=== PATIENT | male | born 1960 | race Caucasian/White ===

== ENCOUNTER 2016-12-05 10:26 | Inpatient (IN) | payer OTHER ==
--- NOTE | 2016-12-05 11:11 | CPEKG ---
Heart Rate: 89 RR Interval: 674 P-R Interval: 132 QRSD Interval: 74 QT Interval: 340 QTC Interval: 414 P Edgar: 71 QRS Edgar: 24 T Wave Edgar: 8 EKG Severity - ABNORMAL ECG - EKG Impression: SINUS RHYTHM EKG Impression: ABNORMAL T, CONSIDER ISCHEMIA, ANTERIOR LEADS Electronically Signed By: Servando Bender 05-Dec-2016 12:06:47
[2016-12-05 11:41] LABS: ABSOLUTE NRBC COUNT 0.14 10^3/uL (0-0.01); ADD DIFF? YES; ADD MORPH? NO; ADD SCAN? NO; ATYPICAL LYMPHOCYTE FLAG 10 (0-99); FRAGMENT RBC FLAG 0 (0-99); HEMATOCRIT 37.7 % (40.0-51.0); HEMOGLOBIN 13.3 g/dL (13.7-17.5); LEFT SHIFT FLG 50 (0-99); LIPEMIA HEMOLYSIS FLAG 90 (0-99); MEAN CELL HEMOGLOBIN 32.9 pg (27.9-34.1); MEAN CELL HEMOGLOBIN CONCENTR. 35.3 g/dL (32.4-36.7); MEAN CELL VOLUME 93.3 fL (81.5-99.8); MEAN PLATELET VOLUME 10.1 fL (8.7-11.7); NRBC-AUTO% 0.7 % (0.0-0.2); PLATELET CLUMPS FLAG 0 (0-99); PLATELET COUNT 79 10^3/uL (150-400); RED BLOOD CELL COUNT 4.04 10^6/uL (4.40-6.38); RED CELL DISTRIBUTION WIDTH 14.1 % (11.5-15.2)
[2016-12-05 11:46] LABS: INR 1.27 (0.83-1.16); PROTIME(PATIENT) 15.9 SEC (12.0-15.0)
[2016-12-05 11:47] LABS: APTT 30.6 SEC (23.0-38.0)
[2016-12-05 11:49] LABS: ANION GAP 5 mEq/L (8-16); CARBON DIOXIDE 28 mEq/l (22-31); CHLORIDE 100 mEq/L (97-110); CREATININE 1.1 mg/dL (0.7-1.3); GLOMERULAR FILTRATION RATE > 60; GLUCOSE 123 mg/dL (70-100); POTASSIUM 4.8 mEq/L (3.5-5.2); SODIUM 133 mEq/L (134-144)
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
[2016-12-05 12:01] LABS: TROPONIN I 0.022 ng/mL (0-0.034)
[2016-12-05] MEDS ORDERED: VANCOMYCIN HCL/NORMAL SALINE 250 ML IV ONE (12:22)
[2016-12-05] MEDS ORDERED: NS 1,000 ML IV ONE ×2 (12:26)
[2016-12-05 12:37] LABS: GIANT PLATELETS PRESENT; KERATOCYTES 1+; LARGE PLATELETS PRESENT; MACROCYTES 1+; MICROCYTES 1+; PLATELET ESTIMATE DECREASED (ADEQ); POLYCHROMASIA 2+; SCHISTOCYTES 2+
[2016-12-05 13:06] LABS: ALBUMIN 2.9 g/dL (3.5-5.0); ALKALINE PHOSPHATASE 142 IU/L (38-126); ASPARTATE AMINOTRANSFERASE 409 IU/L (17-59); BILIRUBIN,TOTAL 1.2 mg/dL (0.1-1.4); BILIRUBIN-CONJUGATED 0.7 mg/dL (0.0-0.5); BILIRUBIN-UNCONJUGATED 0.5 mg/dL (0.0-1.1); TOTAL PROTEIN 5.8 g/dL (6.3-8.2)
[2016-12-05 13:09] LABS: HEMATOCRIT 37.7 % (40.0-51.0)
[2016-12-05 13:14] LABS: ALANINE AMINOTRANSFERASE 1237 IU/L (21-72)
[2016-12-05 13:25] LABS: C-REACTIVE PROTEIN 80.7 mg/L (<10.0)
[2016-12-05] MEDS ORDERED: ONDANSETRON DISINTEGRATING 4 MG TAB PO PRN (13:26)
[2016-12-05] MEDS ORDERED: ONDANSETRON 4 MG/2 ML VIAL IVP PRN (13:26)
[2016-12-05] MEDS ORDERED: NS 1,000 ML IV SCH (13:30)
[2016-12-05] MEDS ORDERED: CEFEPIME HCL 1 GM in D5W 50 ML IV ONE (13:38)
[2016-12-05 13:46] LABS: PLATELET COUNT 79 10^3/uL (150-400)
[2016-12-05 13:51] LABS: FIBRINOGEN 357 mg/dL (214-456)
--- NOTE | 2016-12-05 14:21 | ECHO ---
[id number] + + [address] : : [place] [address] : : [phone] + + Adult Echocardiographic Report + ------+ :Name: SHILPI SUSU LOPEZ DStudy Date: 12/05/2016 12:56 PM : : Hospital Admission Number: [id number] Locati on: ER: :: 1960 Gender: Male : :Age: 56 yrs Race: WH : :Reason For Study: Eval for endocarditis : + ------+ MMode/2D Measurements \T\ Calculations IVSd: 0.72 cm LVIDd: 4.9 cm FS: 40.0 % Ao root diam: 3.5 cm LVPWd: 0.80 cm LVIDs: 3.0 cm EDV(Teich): 114.4 ml LA dimension: 3.2 cm ESV(Teich): 33.9 ml EF(Teich): 70.4 % Normal Measurement Values: + + :LVIDd (3.5-5.7cm) IVSd (0.6-1.1cm) LVPWd (0.6-1.1cm) Aortic Root (2.0-3.7cm)Left Atrium (1.5-4.0cm): :LV Vol(d) (76-115ml) LV Vol(s) (29-48ml) Ejec Fraction (50-65%)PV Ronka (0.6- 1.2m/s) TV Ronak (0.4-1.0m/s) : :MV E Ronak (0.8-1.0m/s)MV A Ronak (0.3-1.0m/s)LVOT Ronak (0.7-1.2m/s) Asc Ao Ronak ( 0.9-1.8m/s) : + + Doppler Measurements \T\ Calculations Ao V2 max: 125.0 cm/sec Ao max P.3 mmHg Left Ventricle The left ventricle is normal in size. There is normal left ventricular wall thickness. Left ventricular systolic function is normal. Ejection Fraction = 60-65%. No regional wall motion abnormalities noted. Right Ventricle The right ventricle is normal in size and function. Atria The left atrial size is normal. Right atrial size is normal. The interatrial septum is intact with no evidence for an atrial septal defect. Mitral Valve The mitral valve is normal in structure and function. There is no evidence of mitral valve prolapse. There is no mitral valve stenosis. There is trace to mild mitral regurgitation. Tricuspid Valve Normal tricuspid valve. There is trace tricuspid regurgitation. Aortic Valve The aortic valve is trileaflet. The aortic valve opens well. There is no aortic stenosis. There is no aortic insufficiency. Pulmonic Valve The pulmonic valve is normal in structure and function. There is no pulmonic valvular regurgitation. Great Vessels The aortic root is normal size. Pericardium/Pleural Trivial anterior pericardial effusion. Conclusion A complete two-dimensional transthoracic echocardiogram was performed (2D, M-mode, Doppler and color flow Doppler). There is no evidence of a mass or vegetation. This does not rule out endocarditis. Left ventricular systolic function is normal. Ejection Fraction = 60-65%. Normal wall motion. Normal appearing cardiac valves. There is trace to mild mitral regurgitation. There is trace tricuspid regurgitation. Trivial anterior pericardial effusion. No indication of endocarditis. Consider MATTHEW if clinically indicated. Final Reading Physician: David Nunez signed on 12/05/2016 02:20 PM Ordering Physician: Isidro Schmitt MD Performed By: Sherry Napoles RDCS
[2016-12-05] MEDS ORDERED: HEPARIN 10,000 UNIT/10 ML MDV IVP ONE (15:19)
[2016-12-05] MEDS ORDERED: HEPARIN/DEXTROSE 25,000 UNIT/500 ML BAG IV ONE (15:48)
[2016-12-05] MEDS ORDERED: HEPARIN 10,000 UNIT/10 ML MDV ONE (15:49)
[2016-12-05] MEDS ORDERED: IOPAMIDOL (ISOVUE-370) 150 ML BTL IV ONE (15:53)
[2016-12-05] MEDS ORDERED: niCARdipine 20 MG CAP PO SCH (16:00)
[2016-12-05] MEDS ORDERED: TEMAZEPAM 15 MG CAP PO PRN (16:54)
[2016-12-05] MEDS ORDERED: NITROGLYCERIN 2% 1 GM PACKET TP ONE ×2 (17:04→18:30)
[2016-12-05] MEDS: HEPARIN 10,000 UNIT/10 ML MDV IVP PRN ×2 (17:09→21:59)
--- NOTE | 2016-12-05 17:16 | GHP ---
DATE OF ADMISSION: 12/05/2016 CHIEF COMPLAINT: Black toes. HISTORY OF PRESENT ILLNESS: This is a 56-year-old man with no significant chronic medical problems who presents with black toes to the emergency department. He said his toes were normal last night. Woke up, they were they were all black. He also some black spots on his fingers. He says that the y are slightly painful. He has noted pain in the bottom of his feet for the past week or so while h e is ambulating. He still does have some feeling. He is able to move them. Recent history notable for having had an infection on his right wrist about 1 week ago, which was I and D, drain was left in place. In further looking into this, this grew out MSSA. He was treated with clindamycin. This infection has resolved. He has never had anything happen like this before. He does not use any il legal drugs. He very rarely drinks. He does smoke occasionally. He has never used IV drugs. He h as never had hepatitis. He has never had any other autoimmune diseases. He also notes that he has had some neurologic issues, including some gait imbalance, over the past 2 months. He has noted getachew e easy bruising also over the past few months as well. PAST MEDICAL/SURGICAL HISTORY: 1. Sciatica. 2. Infection as above. 3. Submental infection with no culture data, empirically treated with antibiotics. He said he was septic at the time. 4. Depression. 5. Anxiety. MEDICATIONS: Please see medication reconciliation. ALLERGIES: Keflex. SOCIAL HISTORY: He lives with his . He does not drink or smoke. FAMILY HISTORY: No autoimmune diseases. REVIEW OF SYSTEMS: 10-point review of systems is conducted and is negative except per HPI. PHYSICAL EXAM: VITAL SIGNS: Blood pressure is 136/95, heart rate 83, respiration rate 20, saturati ng 96% on room air. Temperature is 37.1. GENERAL: The patient is a very pleasant man who is comfo rtable, no acute distress. HEENT: Shows his nose to have some mild erythema. CARDIOVASCULAR: Show s regular rate and rhythm. No murmurs, rubs, or gallops. PULMONARY: Lungs clear to auscultation b ilaterally. ABDOMEN: Soft, nontender, nondistended. SKIN: Shows him to have small amounts of chandu prem reticularis, both of the arms as well as the heels. : Shows no Cesar. NEUROLOGIC: Shows hi m to be alert and oriented x3. Cranial nerves are intact. He has a nonfocal neurologic exam. PSYC HIATRIC: Shows normal mood and affect. EXTREMITIES: Shows his left hand to have some black, ische rickie-looking blisters in the middle part of his ring finger. He also has some smaller, potentially p etechial lesions, on the tips of his fingers. His toes are black. They do have some sensation. The y are not tender to palpation. He has livedo reticularis on the heels. LABORATORY DATA: White count is 19,000, platelets are 79, INR is 1.27 D-dimer is greater than 20. Lactate is normal. LFTs show an ALT of 1200 and an AST of 400. Bilirubin is normal. BNP is 2140. CRP is 80. Tylenol is negative. RF is negative. Hepatitis and HIV are pending. DATA: 1. I discussed this with many physicians, including Dr. Sarmiento, Dr. Bowles, Dr. Gomez, Dr. Coleman, Elmer Fernandez and Dr. Delgado. Will admit and watch closely. 2. Echocardiogram shows no left ventricular thrombus, no vegetations, normal ejection fraction. 3. Testicular ultrasound shows possible leukemia or lymphoma. 4. CT scan of his head shows nothing acute. 5. ECG shows sinus tachycardia. He has T-wave inversions in leads V2 and V3. 6. Chest x-ray, which I personally viewed and interpreted, shows nothing acute. IMPRESSION AND PLAN: This is a 56-year-old man who presented with black toes. 1. Black toes as well as digits: Concerning for ischemia, though does not have all the physical fi ndings to go along with this. Have considered embolic sources, endocarditis, vasculitis, other prim sal dermatologic disorders, autoimmune disorders. Discussed this with multiple physicians. Will at tempt to obtain a punch biopsy of a skin lesion as well as temporal artery biopsy. Dr. Sarmiento will do this. We will get CT scan of his chest, abdomen and pelvis. Will also get CT angiogram with valeriano gutierrez at the same time. Dr. Fernandez will consider doing a formal angiogram tomorrow based on the finding s. I think he deserves empiric treatment with a vasodilator, heparin in case this is thromboembolic causing ischemia, steroids for possible vasculitis. Discussed the risks of heparin with him includ ing his mild thrombocytopenia. Further treatment based on clinical course and diagnostic findings. 2. Marked leukocytosis: Blood cultures are pending. 3. Significantly elevated D-dimer: Suspect due to small-vessel thrombi. I do not think this repre sents pulmonary embolus. 4. Markedly elevated LFTs: I have ordered a liver ultrasound with Dopplers to look for possible Bu dd-Chiari or other ischemic issues. 5. I have ordered multiple rheumatologic serologies. These include an DAVID, RF (negative), cryoglob ulins, complements, ANCA. I have ordered hepatitis panel. HIV is pending. 6. Will empirically give him antibiotics in case this does end up representing an occult infection. These will be guided by Dr. Bowles. LOPEZ: I spent a total of 120 minutes of critical care time on these potentially limb threatening processes. /[id number]
[2016-12-05] MEDS ORDERED: niCARdipine/NACL 200 ML IV SCH (17:30)
[2016-12-05] MEDS: clonazePAM 1 MG TAB PO SCH ×2 (18:25→20:23)
[2016-12-05] MEDS: methylPREDNISolone SOD SUCC 125 MG/2 ML VIAL IVP SCH ×2 (18:27→23:51)
[2016-12-05] MEDS: oxyCODONE IR 5 MG TAB PO PRN ×2 (18:30→22:59)
--- NOTE | 2016-12-05 18:36 | GHP ---
DATE OF ADMISSION: 12/05/2016 HISTORY OF PRESENT ILLNESS: This 56-year-old gentleman has a history of some issue going on with his right wrist. He thinks it started about 2-3 weeks ago. He describes a couple of pimple-like lesions and was seen in Occupational [facility] and was placed on Bactrim. Apparently, things progressed and he saw a hand surgeon who did an I and D and left a drain in place. Then, he was treated with clindamycin. The actual area in question appeared to get better, however, recently over the last 24 hours his toes have become black. He has had increasing pain in his testicles. He has had some vertigo. He has had some low-grade fever and some chilling. Came to the emergency room and because of a markedly abnormal physical exam he was admitted. Prior to this he had felt well. He have a history of some type of infection which he describes as sepsis originating in the head and neck region about 2 years ago. PAST MEDICAL HISTORY: Significant for sciatica, the infection about 2 years ago , depression and anxiety. ALLERGIES: Keflex. 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 He does not smoke and does not drink. FAMILY HISTORY: Unremarkable. REVIEW OF SYSTEMS: Negative for 10 points except as discussed above. PHYSICAL EXAM: GENERAL: He is a talkative, alert male. VITAL SIGNS: Blood pressure is 136/95, heart rate 83, respiratory rate 20, sat is 96%. He is afebrile. HEENT: Pharynx is unremarkable. There are some petechial lesions over his nose. CARDIAC: Regular rate and rhythm. LUNGS: Clear to auscultation and percussion. ABDOMEN: Soft, slightly obese, nontender without organomegaly. NEUROLOGIC: He is alert and oriented. EXTREMITIES: Particularly dramatic in terms of his toes, all of which are black. They are a bit cool. They have some sensation. Dorsalis pedis pulses are quite brisk. He has some erythematous lesions over his dorsum of his feet and heels. He has an ugly looking sore involving the radial aspect on the dorsum of his right hand. There are petechial lesions noted on the tips of his fingers on the right hand, and there are also a few black eschar looking issues on the left hand. : His testicles are somewhat enlarged and tender to palpation. LABORATORY AND IMAGING DATA: Today shows a white count of 19,000, hemoglobin of 13, hematocrit of 37, platelets are 79,000. Differential shows 84% neutrophils, 2% bands, 12% lymphocytes, 1% monocytes, 1% eosinophils. Platelets were noted to be large, a few keratocytes and schistocytes are noted. There are also a few nucleated RBCs. Sodium is 133, glucose is 123, AST 409, ALT 1237, alk phos is 142. BNP is elevated at 2140. C-reactive protein quite elevated at 80.7, albumin is 2.9. INR is 1.27. D-dimer is greater than 20. Fibrinogen is 357. Rheumatoid factor is negative. Hepatitis serology is pending. Acetaminophen level is low. An ultrasound of his right upper quadrant is really unremarkable. However, an ultrasound of his testicles shows heterogeneous echogenicity in both testicles diffusely. The radiologist mentions a differential of lymphoma or leukemia. CT angiogram of the chest shows atherosclerotic changes but no other issues. IMPRESSION: Patient presenting with an initial issue with his right hand, now with systemic symptoms consistent with microvascular disease, either embolic or vasculitic, with significant involvement of his toes, to a lesser extent his fingers, and I suspect the same process is probably involving his testes. There is a history of methicillin-resistant Staphylococcus aureus, and I think an infectious etiology is definitely a possibility. I should note that an echocardiogram did not show any evidence of valvular vegetations. He has number of abnormalities in his CBC including a significant leukocytosis and thrombocytopenia. I suspect these are probably reactive rather than a primary bone marrow issue, but I think we should keep this issue in mind. He also has markedly elevated liver function tests. The cause is unclear although I wonder if the same microvascular process might be occurring in his liver. He has a number of serologies pending including hepatitis serology, DAVID screen, and p- ANCA testing for vasculitis as well as an HIV. Disseminated intravascular coagulation is a possibility, but his fibrinogen at least for now is normal. Other possibilities such as hemolytic uremic syndrome or thrombotic thrombocytopenic purpura are at least a consideration. I agree with current plans to anticoagulate with heparin and to place on vancomycin. Vasodilators may be of some benefit. I agree with plans for biopsy of one of the ischemic-appearing lesions. Certainly if microorganisms were found that would be quite helpful. In addition to the above labs, I am adding a serum ferritin, FISH for BCR-ABL, serum free light chain analysis, serum protein electrophoresis, and quantitative immunoglobulins. We will also perform a JAK2 mutation and check for a leukemia/lymphoma panel as well as checking an LDH. Our service will follow with you. /[id number]/MODL MTDD
[2016-12-05 18:41] LABS: COLOR PALE YELLOW; LEUKOCYTE ESTERASE,URINE NEGATIVE (NEGATIVE); NITRITE,URINE NEGATIVE (NEGATIVE)
[2016-12-05] MEDS: VANCOMYCIN HCL/NORMAL SALINE 250 ML IV SCH (19:47)
[2016-12-05] MEDS: CEFEPIME HCL 1 GM in D5W 50 ML IV SCH (19:47)
--- NOTE | 2016-12-05 19:52 | GCON ---
This is a 56-year-old gentleman who has 1 week of prodromal syndrome before coming in. He had infection of the right hand on the posterior aspect which was drained by Dr. Nicole, Plastic Surgery at [facility]. He was subsequently discharged with home care and clindamycin. The patient continued to have symptoms of malaise, anorexia, dizziness with loss of equilibrium and spots on both hands which have worsened to ischemic type changes over the last 48 hours. The patient also this morning discovered bilateral feet, toes with purple discoloration and extreme discomfort and pain on standing. He denies any fevers or chills. He has not had any other sicknesses that he is aware of over the last few months. He does have a cat which has scratched him the last 2 weeks, bitten him in the last month, but as far as he knows the cat has been present with him for 5 years, does not have any known illnesses. PAST MEDICAL HISTORY: Significant for sciatica, previous infection of his right hand, hospitalized in [facility] 2 years ago. He also has a history of hypertension, depression, and dyspepsia. MEDICATIONS: Listed in the chart; include Paxil, Klonopin, ranitidine, Nexium, and trazodone. He is also taking clindamycin as of this past week. ALLERGIES: Include cephalexin. FAMILY HISTORY: He has no family history of vasculitis or heart disease. REVIEW OF SYSTEMS: Significant for an attempted weight loss of last 2 months of approximately 20 pounds. All others systems were negative except for what was mentioned above. They were reviewed. PHYSICAL EXAMINATION: VITAL SIGNS: The patient has a temperature of 37.1, heart rate of 85, blood pressure of 137/87 with a saturation 96% on room air, respiratory rate of 17. GENERAL: He is alert to person, place, and time, although he tends to have some circuitous thoughts. His manner is otherwise normal. HEENT: His sclerae anicteric. His oropharynx is moist without lesions. He has no JVD, thyromegaly, or supraclavicular adenopathy. HEART: Regular heart tones. S1, S2. LUNGS: Clear. ABDOMEN: Soft, nontender. No hepatosplenomegaly. No scars. EXTREMITIES: He has 2+ femoral, radial, dorsalis pedis, and posterior tibial pulses. His skin is noted for mottling in both ankles down to his toes. Bilateral upper extremities: His distal fingers are discolored slightly purple, and on his hands dorsum of the right has an open wound, which is cleansed. No signs of active infection. No cellulitis. The left hand, on the volar surface, he has an ischemic wound on the 5th digit as well as closer to the metacarpal joint. The rest of the fingers on the palmar surface have slight discoloration but are perfused. His toes bilaterally are purple discoloration to the metatarsals without good capillary refill. He has a blister on the left foot which is punctured and the fluid sent for culture. He has no CVA tenderness. Range of motion, upper extremities , is normal. 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 RECOMMENDATIONS: At this point, steroid use for vasculitis as well as anticoagulation. I do not believe tPA is necessary. Agree with looking for source of infection. Could be hepatitis B, but Infectious Disease is also involved. Likely a CT scan of the chest, abdomen, and pelvis as well as an angiogram to look for any signs of occlusion or spasm. Risks and benefits of conservative care have been outlined to the patient and his . Serial followup will be done over the course of this hospitalization. /[id number]/MODL MTDD
[2016-12-05] MEDS: HYDROmorphONE/DILAUDID 1 MG/ML SYR IVP PRN ×2 (19:58→22:59)
[2016-12-05] MEDS: traZODone 50 MG TAB PO SCH (20:23)
[2016-12-05] MEDS: GABAPENTIN 300 MG CAP PO SCH (20:23)
[2016-12-05] MEDS: METHOCARBAMOL 500 MG TAB PO SCH (20:23)
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
[2016-12-05] MEDS ORDERED: FAMOTIDINE 20 MG TAB PO PRN (21:00)
[2016-12-05] MEDS: niCARdipine 20 MG CAP PO SCH (21:05)
[2016-12-05] MEDS ORDERED: LIDO/EPI 1% **Not for Epidural 20 ML MDV ONE (21:30)
[2016-12-05] MEDS ORDERED: SKIN ADHESIVE (DERMABOND) 1 EACH TP ONE (21:35)
[2016-12-05 21:46] LABS: INR 1.28 (0.83-1.16)
[2016-12-05 21:48] LABS: APTT 84.1 SEC (23.0-38.0)
[2016-12-05 22:07] LABS: LACTATE DEHYDROGENASE 2914 IU/L (313-618)
[2016-12-05 22:36] LABS: CK-MB INTERPRETATION NEGATIVE (NEGATIVE)
[2016-12-05 22:41] LABS: CREATINE KINASE-MB FRACTION 7.59 ng/mL (0-3.19)
--- NOTE | 2016-12-05 23:14 | POSTOPPROG ---
Post Op Note Date of Operation: 12/05/16 Surgeon: Peter Sarmiento Applications Consultant: none Anesthesiologist: none Anesthesia: Local (Specify) Pre-op Diagnosis: vasculitis Post-op Diagnosis: same Procedure: left temporal artery bx, right thigh skin bx Findings: small artery Inf/Abcess present in the surg proc area at time of surgery?: No Specimen(s): left temporal artery right extremity skin bx
--- NOTE | 2016-12-05 23:43 | GOP ---
DATE OF OPERATION: SURGEON: Peter Sarmiento MD ANESTHESIA: Local anesthetic, 1% lidocaine with epinephrine. PREOPERATIVE DIAGNOSIS: Vasculitis. POSTOPERATIVE DIAGNOSIS: Vasculitis. PROCEDURE PERFORMED: 1. Left temporal artery biopsy. 2. Right thigh biopsy. FINDINGS: INDICATIONS: This is a 56-year-old gentleman who presents with vasculitis. Temporal artery biopsy and skin biopsy have been asked for as part of the workup. DESCRIPTION OF PROCEDURE: Patient was identified by 2 independent variables. His skin was prepped with chlorhexidine, draped sterilely on his temporal artery. Local anesthetic was infused in skin a nd subcutaneous tissues, and a linear incision was made above the artery. This was deepened with sh jesus dissection. The artery was identified. Proximal and distal control were used with hemostats an d the artery was taken out between the clamps. It was passed off as specimen. The artery was tied off with 3-0 Vicryl proximally and distally and the wound was closed in layers using 4-0 Monocryl. Skin biopsies done on the right thigh with similar preparation with chlorhexidine, local anesthetic 1% lidocaine with epinephrine. Elliptical incision was made around the lesion, and this sent off fo r pathology in formalin. The skin was closed using Monocryl. Dermabond was applied to both areas. Patient tolerated it well. Will follow up with him over the course of the next 24 hours. COMPLICATIONS: There were no complications. /[id number]/MODL
[2016-12-06] MEDS: CEFEPIME HCL 1 GM in D5W 50 ML IV SCH ×3 (03:11→19:32)
[2016-12-06] MEDS: VANCOMYCIN HCL/NORMAL SALINE 250 ML IV SCH ×2 (03:57→12:44)
[2016-12-06 04:47] LABS: ABSOLUTE NRBC COUNT 0.07 10^3/uL (0-0.01); ADD DIFF? YES; ADD MORPH? NO; ADD SCAN? NO; ATYPICAL LYMPHOCYTE FLAG 10 (0-99); FRAGMENT RBC FLAG 20 (0-99); HEMATOCRIT 35.1 % (40.0-51.0); LEFT SHIFT FLG 30 (0-99); LIPEMIA HEMOLYSIS FLAG 90 (0-99); MEAN CELL HEMOGLOBIN CONCENTR. 34.2 g/dL (32.4-36.7); MEAN CELL VOLUME 93.6 fL (81.5-99.8); MEAN PLATELET VOLUME 11.4 fL (8.7-11.7); NRBC-AUTO% 0.4 % (0.0-0.2); PLATELET CLUMPS FLAG 0 (0-99); PLATELET COUNT 108 10^3/uL (150-400); RED BLOOD CELL COUNT 3.75 10^6/uL (4.40-6.38); RED CELL DISTRIBUTION WIDTH 14.6 % (11.5-15.2)
[2016-12-06 04:51] LABS: INR 1.27 (0.83-1.16); PROTIME(PATIENT) 15.9 SEC (12.0-15.0)
[2016-12-06 04:52] LABS: FIBRINOGEN 410 mg/dL (214-456)
[2016-12-06 05:24] LABS: ALANINE AMINOTRANSFERASE 873 IU/L (21-72); ALBUMIN 2.6 g/dL (3.5-5.0); ALKALINE PHOSPHATASE 99 IU/L (38-126); ANION GAP 4 mEq/L (8-16); ASPARTATE AMINOTRANSFERASE 192 IU/L (17-59); BILIRUBIN,TOTAL 0.8 mg/dL (0.1-1.4); CALCIUM 7.3 mg/dL (8.5-10.4); CARBON DIOXIDE 25 mEq/l (22-31); CHLORIDE 108 mEq/L (97-110); CREATININE 0.9 mg/dL (0.7-1.3); GLOMERULAR FILTRATION RATE > 60; GLUCOSE 173 mg/dL (70-100); POTASSIUM 5.1 mEq/L (3.5-5.2); SODIUM 137 mEq/L (134-144); TOTAL PROTEIN 5.5 g/dL (6.3-8.2)
[2016-12-06 05:27] LABS: KERATOCYTES 1+; MACROCYTES 1+; MICROCYTES 1+; PLATELET ESTIMATE DECREASED (ADEQ); POLYCHROMASIA 1+
[2016-12-06 05:28] LABS: PLATELET COUNT 108 10^3/uL (150-400)
[2016-12-06] MEDS: methylPREDNISolone SOD SUCC 125 MG/2 ML VIAL IVP SCH ×4 (06:18→23:41)
[2016-12-06 06:28] LABS: APTT 154.3 SEC (23.0-38.0)
[2016-12-06] MEDS: HEPARIN/DEXTROSE 500 ML IV SCH (07:47)
[2016-12-06] MEDS: HYDROmorphONE/DILAUDID 1 MG/ML SYR IVP PRN ×3 (08:36→19:35)
[2016-12-06] MEDS: PANTOPRAZOLE SODIUM 40 MG TAB PO SCH (08:58)
[2016-12-06] MEDS: niCARdipine 20 MG CAP PO SCH ×3 (08:58→22:25)
[2016-12-06] MEDS: PARoxetine HCL 20 MG TAB PO SCH (08:58)
--- NOTE | 2016-12-06 10:35 | SOAPPROG ---
SOAP Progress Note Assessment/Plan: Assessment: 1. Ischemia of digits - unclear etiology 2. ?recent R hand infection. 3. Microangiopathy (low plts, schistocytes, high LDH) Does not appear to be TTP - plts improving, renal function normal, no fever or altered mental status. Suspect vasculitis or possibly an infectious complication. Plan: - continue heparin gtt for now - will follow hemolysis labs and platelets - await skin biopsy results - should have a rheum consult 40 min spent w/ pt and in coordination of care (d/w kleber silva, padmini, ) 12/06/16 10:33 Subjective: feeling better today. less testicular pain. Objective: exam: NAD cyanosis of toes > fingers- stable no new lesions evident Lungs CTAB CV RRR no mGR Abd: +BS NT ND Ext: 1+ edema smear (personally reviewed): 4-5 schistocytes/HPF, some polychromasia, no immature WBCs seen Vital Signs Temp Pulse Resp BP Pulse Ox 37.7 C 76 15 117/67 96 12/05/16 21:00 12/06/16 06:00 12/06/16 06:00 12/06/16 06:00 12/06/16 06:00 Microbiology 12/05/16 13:14 Gram Stain - Final Foot - Swab Laboratory Results 12/06/16 04:25 12/06/16 04:25 12/05/16 12/06/16 12/07/16 05:59 05:59 05:59 Intake Total 3800 Output Total 1850 Balance 1950 PT 15.9 SEC (12.0-15.0) H 12/06/16 04:25 INR 1.27 (0.83-1.16) H 12/06/16 04:25 ICD10 Worksheet Patient Problems: Problems Problem Status Onset Ischemic toe Acute Skin lesion Acute
--- NOTE | 2016-12-06 11:05 | HOSPPROG ---
Hospitalist Progress Note Assessment/Plan: # ischemic digits/toes?: very atypical presentation; considerations for vasculitis, embolic, other etiologies - formal angiogram today - continue heparin drip - continue steroids - continue vasodilators - will discuss with Infectious Disease continuing antibiotics - multiple serologies pending - biopsies pending - Dr. Mcpherson will consult # mild thrombocytopenia - seems more likely consumptive/reactive, consider TTP # elevated LFTs - likely the same underlying process, follow # abnormal testicular imaging - also likely the same underlying process # depr - paxil ## 35 minutes critical care time Subjective: no acute events overnight Objective: Vital Signs Temp Pulse Resp BP Pulse Ox 37.7 C 76 15 117/67 96 12/05/16 21:00 12/06/16 06:00 12/06/16 06:00 12/06/16 06:00 12/06/16 06:00 Microbiology 12/05/16 13:14 Gram Stain - Final Foot - Swab Laboratory Results 12/06/16 04:25 12/06/16 04:25 12/05/16 12/06/16 12/07/16 05:59 05:59 05:59 Intake Total 3800 Output Total 1850 Balance 1950 PT 15.9 SEC (12.0-15.0) H 12/06/16 04:25 INR 1.27 (0.83-1.16) H 12/06/16 04:25 Vitals reviewed Pleasant, no acute distress Regular rate and rhythm, no murmurs rubs or gallops No respiratory distress, lungs clear to auscultation bilaterally, no wheezes or rales Abdomen soft nontender, nondistended, no hepatosplenomegaly Toes slightly pink early, less does gruber today than yesterday ICD10 Worksheet Patient Problems: Problems Problem Status Onset Skin lesion Acute Ischemic toe Acute
[2016-12-06] MEDS ORDERED: PNEUMOCOCCAL 0.5ML VACCINE VIAL IM ONE (12:47)
--- NOTE | 2016-12-06 13:29 | WOCRNPDOC ---
SU[facility]ANNE Advanced Assessment Note - Skin Integrity Problem, Advanced Assess Bilateral Toe Dressing Type: Open to Air Linda Wound Tissue: Painful/Tender Pulse Location & Description: 2+ bounding bilateral DP Extremity Temperature: Warm Skin Integrity Problem Comment: Bilateral toes purple/ischemic with no open areas at this time. Left Great toe purple/ischemic to 10 cm from phalange to metatarsal head. Erythema had been previously marked and extended proximally from all 10 toes. Erythema appears to have receeded from previous marked areas. Left heel with livedo reticularis. Left Anterior Fifth Finger Dressing Type: Open to Air Wound Bed Color: Black Site Measurement - Head-to-Toe Length X Width X Depth (cm): 1.3x1.2x0 Skin Integrity Problem Comment: Area of black ischemia/nerosis between distal and middle phalange. No drainage. Left Fingers 2,3,4th Skin Integrity Problem Comment: Intact with livedo reticularis over distal phalanx. Area had been previously marked. Erythema appears to have receded from margins. Right Posterior Lateral Hand Dressing Type: Open to Air Exudate Amount: Minimal Exudate Color: Clear, Yellow Integumentary Issue Intervention: Dressing Applied, Dressing Initialed & Dated Linda Wound Tissue: Erythema, Hot, Swollen, Painful/Tender Linda Wound Swelling: Severe Wound Bed Color: Black, Brown, Red, Yellow, White Wound Bed Constitution: Smooth Tissue (20%), Mixed Loose & Adhered Slough/ Eschar (80%) Site Odor: None Site Measurement - Head-to-Toe Length X Width X Depth (cm): 4.8x2.8x0.4 Extremity Temperature: Warm Skin Integrity Problem Comment: Large necrotic ulceration over second metacarpophalangeal joint. Soaked for 20 min in Vashe wound cleanser. Area of necrosis that covers center of the wound began to lift off wound bed after soaking. This may be where a drain was previously placed. It is noted Dr. Rakan Toro (hand surgeon) will follow this wound as well. The necrosis will not be mechanically/sharp debrided by wound care, however mild autolytic debridment will be attempted. The wound was covered with Puracyn antimicrobial wound gel, and then AMD antimicrobial foam which was then wrapped in place. Dr. Parmar in room. Wound care will round again tormorrow to see wound. Right Posterior Medial Hand Dressing Type: Open to Air Exudate Amount: None Integumentary Issue Intervention: Dressing Applied, Dressing Initialed & Dated Linda Wound Tissue: Erythema Wound Bed Constitution: Granulation Tissue, Scab, Dried Exudate Site Measurement - Head-to-Toe Length X Width X Depth (cm): 1x1x0.2 Skin Integrity Problem Comment: Partial thickness wound over 4th posterior Metacarpophalangeal joint. Soaked for 20 min in Vashe wound cleanser. Most of wound was covered with dried blood, which was covered with Puracyn antimicrobial wound gel, and then AMD antimicrobial foam which was then wrapped in place. Dr. Parmar in room. Wound care will round again tormorrow to see wound.
[2016-12-06] MEDS ORDERED: NALOXONE HCL 0.4 MG/ML INJ ONE (14:01)
[2016-12-06] MEDS ORDERED: FLUMAZENIL 0.5 MG/5 ML MDV IVP ONE (14:01)
[2016-12-06] MEDS ORDERED: fentaNYL 100 MCG/2 ML INJ ONE (14:01)
[2016-12-06] MEDS ORDERED: MIDAZOLAM 2 MG/2 ML VIAL ONE (14:02)
--- NOTE | 2016-12-06 14:10 | PCMIDPN ---
Assessment/Plan: Assessment/Plan: * Digital ischemia with ulceration over right dorsum of hand: Suspect most likely noninfectious etiology given both feet with all toes and nose affected which seems unusual for emboli with vasculitis possible underlying etiology. Will continue empiric vancomycin and cefepime pending blood cultures today. If blood cultures negative tomorrow, favor stopping antibiotic therapy. Await angiogram which is scheduled for later today and rheum consult. * Right hand ulceration: Treated as infectious process prior to hospitalization - no cellulitis on exam but does have desquamation below ulceration which could be seen with resolving infection. 12/06/16 14:07 12/06/16 14:14 Subjective: Patient with pain over right hand ulceration with dressing change. s/p temporal artery and skin biopsy. Objective: Vital Signs Temp Pulse Resp BP Pulse Ox 37.7 C 76 13 124/84 H 92 12/05/16 21:00 12/06/16 13:00 12/06/16 13:00 12/06/16 13:00 12/06/16 13:00 Microbiology 12/05/16 13:14 Gram Stain - Final Foot - Swab Laboratory Results 12/06/16 04:25 12/06/16 04:25 12/05/16 12/06/16 12/07/16 05:59 05:59 05:59 Intake Total 3800 Output Total 1850 Balance 1950 ESR 9 MM/HR (0-20) 12/05/16 12:00 C-Reactive Protein 80.7 mg/L (<10.0) H 12/05/16 12:00 Vancomycin #2 Cefepime #2 Blood cultures no growth to date ANCA pending DAVID/RF negative - Physical Exam General Appearance: alert, no apparent distress EENT: other (punctate hemorrhagic appearing macules over nose), No thrush, No conjunctival petechiae Respiratory: lungs clear, No respiratory distress Cardiac/Chest: regular rate, rhythm, No systolic murmur Extremities: inflammation (right hand with ulceration over dorsum at base of index finger with some eschar present; no purulence; cool temperature; left hand with scattered ischemic changes distally; both feet with symmetric ischemic changes) Abdomen: non-tender, No distended ICD10 Worksheet Patient Problems: Problems Problem Status Onset Ischemic toe Acute Skin lesion Acute
[2016-12-06] MEDS ORDERED: IOPAMIDOL (ISOVUE-300) 100 ML BTL IV ONE ×2 (14:50→15:38)
[2016-12-06] MEDS ORDERED: NITROGLYCERIN/D5W 50 MG/250 ML BOTTLE IV ONE (14:50)
[2016-12-06 15:31] LABS: HEMATOCRIT 36.8 % (40.0-51.0)
--- NOTE | 2016-12-06 16:22 | SOAPPROG ---
SOAP Progress Note Assessment/Plan: Assessment/Plan: Blue toes/fingers with testicular pain and no large/moderate vessel disease favor vasculitis Better today with steroids/vasodilation systemically and locally and systemic anticoagulation Continue current mgmt Angio today pending Temporal artery, skin biopsies pending Continue to follow labs/tests 12/06/16 16:16 Objective: Vital Signs Temp Pulse Resp BP Pulse Ox 37.7 C 76 13 124/84 H 92 12/05/16 21:00 12/06/16 13:00 12/06/16 13:00 12/06/16 13:00 12/06/16 13:00 Microbiology 12/05/16 13:14 Gram Stain - Final Foot - Swab Laboratory Results 12/06/16 15:10 12/06/16 04:25 12/05/16 12/06/16 12/07/16 05:59 05:59 05:59 Intake Total 3800 Output Total 1850 650 Balance 1950 -650 PT 15.9 SEC (12.0-15.0) H 12/06/16 04:25 INR 1.27 (0.83-1.16) H 12/06/16 04:25 ICD10 Worksheet Patient Problems: Problems Problem Status Onset Ischemic toe Acute Skin lesion Acute
[2016-12-06] MEDS: oxyCODONE IR 5 MG TAB PO PRN ×2 (16:29→21:12)
[2016-12-06] MEDS: HEPARIN 10,000 UNIT/10 ML MDV IVP PRN (16:54)
[2016-12-06] MEDS: PAPAVERINE HCL 60 MG/2 ML SDV IV SCH ×3 (17:19→23:39)
--- NOTE | 2016-12-06 17:55 | GCON ---
PULMONARY/CRITICAL CARE CONSULTATION DATE OF CONSULTATION: 12/06/2016 REFERRING PHYSICIAN: Yemi Culp MD REASON FOR REFERRAL: Evaluation and management of digital ischemia. HISTORY: The patient is a 56-year-old gentleman who was in his usual state of good health when he r eports that about a week ago he had an infection on his right wrist which was I'd and D'd and grew o ut MSSA, treated with clindamycin. That infection seemed to improve. About a week ago, he started to develop some pain in the bottoms of his feet while walking. Yesterday he woke up with black toes and some redness of his fingertips that was painful. He was admitted to the hospital where he has continued to report pain in his fingers more so than his toes. He has not had any prior history of Raynaud or other problems with circulation. He denies any illicit drug use. He has not had fevers. PAST MEDICAL HISTORY: 1. History of sciatica. 2. Depression with anxiety. MEDICATIONS: Paxil, clonazepam 2 mg in the day and 3 mg at night, gabapentin, omeprazole, trazodone , ranitidine, clindamycin, Robaxin, diphenhydramine. ALLERGIES: Keflex. SOCIAL HISTORY: The patient lives with his . He drinks rarely and smokes occasionally. FAMILY HISTORY: Unremarkable. REVIEW OF SYSTEMS: A 10-point review of systems adds nothing to the History of Present Illness and Past Medical History. PHYSICAL EXAMINATION: GENERAL: The patient is awake, alert, in no acute distress. VITAL SIGNS: B lood pressure is 121/60 with a pulse of 74. He is afebrile. Oxygen saturations are 97% on room air . HEENT: Normocephalic and atraumatic. He has some nonblanching erythema in his nose. NECK: No adenopathy. Trachea is midline. CHEST: Clear to auscultation. CARDIAC: Regular rate and rhythm without murmur. ABDOMEN: Soft, nontender. Bowel sounds are present. EXTREMITIES: No clubbing or cyanosis. He has good peripheral pulses. All of his toes have ischemic or necrotic changes with b lackness of his great toes and nonblanching petechiae/ischemic changes in all of his toes. He has i schemic changes of his fingertips without any definite necrosis except for an area along his anterio r left 5th digit. LABORATORY: White blood count is 19.3 with a hemoglobin of 12.0, platelet count is 108. Chemistry group is remarkable for a blood glucose of 173. AST is 182 with an ALT of 873. These are both down from admission. CK is 3060. BNP is 2140. Sedimentation rate is 9. INR was 1.3 at admission. La ctic acid is 1.5. An DAVID is normal at 0.21. CT angio done yesterday showed no significant atherosc lerotic disease. An angiogram today shows patent vessels down to the very distal digital vessels wh ere, in both feet and his hand, the patient has some abrupt tapering and occlusion of small distal v essels most consistent with spasm and possible in situ thrombosis. Images reviewed with Dr. Fernandez. ASSESSMENT: Digital ischemia. The most likely cause appears to be peripheral vasospasm with in sit u thrombosis. At this point, initial lab tests do not suggest a significant coagulopathy or hyperco agulable state. Vasculitis is unlikely given the normal sedimentation rate. The patient has been t reated with heparin and appears to be clinically stabilizing. I discussed the case with Dr. Fernandez and reviewed the angiograms. She feels that vasodilator therapy is indicated and likely to be benefici al. He may also benefit from thrombolysis, probably with systemic therapy, but because the peripher al thrombi that are seen are quite small, it is likely that the patient's intrinsic lytic system may be able to resolve these fairly quickly. RECOMMENDATIONS: 1. Start papaverine 60 mg IV q.3 hours. 2. Await results of further serologic testing as well as testing for leukemia. 3. Monitor for coagulopathy. 4. If the patient clinically deteriorates, consider tPA. /[id number]/MODL
[2016-12-06] MEDS: clonazePAM 1 MG TAB PO SCH ×2 (18:08→18:21)
[2016-12-06] MEDS ORDERED: methylPREDNISolone SOD SUCC 125 MG/2 ML VIAL ONE (18:20)
[2016-12-06 19:55] LABS: HEMOGLOBIN A1C 6.1 % (4.0-6.0)
[2016-12-06] MEDS: GABAPENTIN 300 MG CAP PO SCH (22:25)
--- NOTE | 2016-12-06 22:26 | GCON ---
RHEUMATOLOGY CONSULTATION DATE OF CONSULTATION: 12/06/2016 REFERRING PHYSICIAN: Yemi Culp MD REASON FOR CONSULTATION: Evaluate for rheumatic disease. HISTORY OF PRESENT ILLNESS: The patient is a 56-year-old male with past medical history significant for anxiety, insomnia who presents with black discoloration of multiple toes, in addition to several fingers. He reports that he was in his usual good health until approximately 1 month ago. At that time, he had injury stepping out of a truck. At that point in time, he felt some sciatica-like symptoms down the back leg. This seemed to resolve within about 3-4 days. Several weeks later, he developed some similar symptoms along the right posterior thigh region radiating downward, concerning for sciatica. This was mostly improving until about 1 week prior to admission. One week prior to admission, he developed some discoloration and red areas on the dorsum of his right hand. This ultimately appeared to be infected. He went to see his primary care physician, who placed him on antibiotics. He was given Bactrim. With this, he developed severe abdominal pain and discontinued it. When he spoke to his physician again, he was referred to Orthopedic Surgery for drainage of an infected dorsum of the right hand and wrist. He was also given clindamycin for this infection which was MSSA. Infection subsequently resolved. Two days prior to admission, he noted the development of toes that appeared very black, along with several fingertips. This was associated with some moderate pain in that region. Because of the drastic appearance of these lesions, he went to the emergency room for further evaluation. He was subsequently admitted for further evaluation and treatment. He has never had anything similar to this. He has had no history of thrombotic events. In the proceeding months, he has not had any fevers, chills, weight loss, sweats, visual changes, sores in nose or mouth, chest pain, breathing issues, cough. Only gastrointestinal symptoms were the abdominal pain he developed with initiation of Bactrim. He did continue to have abdominal pain through the week. This was not necessarily worse with or without eating. No associated tingling or numbness. He has no known history of hepatitis, nor has he had any particular high-risk for this condition. With his initial evaluation in the emergency room, CPK was noted to be 3000, LDH was markedly elevated. Liver enzymes were also quite elevated. Kidney function and urinalysis has been normal. He has not had any cardiac or pulmonary symptoms or findings. He had a CT angiogram which did not suggest any proximal thrombotic lesions. PAST MEDICAL HISTORY: Includes anxiety with depression, submental infection improved with antibiotic therapy a couple years ago, recent sciatica symptoms. MEDICATIONS: At home include clonazepam and trazodone. DRUG ALLERGIES: Cephalexin, possibly Bactrim. SOCIAL HISTORY: Lives with his . He does not drink. He does smoke occasionally. No illicit drug use. 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 FAMILY HISTORY: No history of autoimmune disease. REVIEW OF SYSTEMS: Comprehensive review of systems is noted in the history of present illness. PHYSICAL EXAMINATION: VITAL SIGNS: Blood pressure 127/61, heart rate of 74, respiratory rate is 14, O2 saturation 95% on room air. Temperature of 37.7. GENERAL: He appears comfortable lying flat in bed. HEENT: The conjunctivae are clear. Oral lesions are noted. The nose does have multiple erythematous areas without any specific areas of tenderness. NECK: Supple with no lymphadenopathy. No thyromegaly appreciated. CHEST: Clear to auscultation bilaterally. CARDIOVASCULAR: Normal sinus rhythm. No murmurs appreciated. ABDOMEN: Soft, nontender. Normal bowel sounds. No masses appreciated. EXTREMITIES: Trace edema. SKIN: He has black discoloration with superficial necrosis noted worse down the 5th finger of the left hand, but also several other digits distally on the left hand. Both feet show profound black discoloration distal to the metatarsophalangeal joint. There is moderate tenderness with direct palpation of this area. Slightly more proximally, there is more erythema noted without the black discoloration. No open lesions are appreciated. Both feet are equally involved. MUSCULOSKELETAL: No joint swelling or tenderness. NEUROLOGIC: Normal sensation and strength. VASCULAR: Normal pulses appreciated. LYMPH NODES: No lymphadenopathy. LABORATORY DATA: White blood cell count of 19.3, hemoglobin 12.0, platelet count of 108. Significant neutrophilia with 15,000 neutrophils, bandemia with 2.7 bands noted. ESR was 9. Cryofibrinogens are pending. Chemistries showed normal creatinine of 0.9, AST was 873, ALT of 192. Calcium slightly low at 7.3. Total protein of 5.5, albumin of 2.6, CK of 3060. C-reactive protein of 80.7. Protein electrophoresis is pending. Urinalysis showed a few red blood cells. Immunoglobulin levels, cryoglobulin levels are pending. Rheumatoid factor is negative. DAVID is negative. Anticardiolipin antibodies are pending. Antiproteinase 3 and myeloperoxidase antibodies are pending. Complement levels are pending. Hepatitis A, B and C testing are all negative. IMAGING: CT angiogram shows some mild atherosclerotic calcification in the aorta. No evidence of thrombosis or vasculitic changes in the larger vessels. No aneurysms noted. Testicular ultrasound shows some heterogenous echogenicity in both testicles. Chest CT, no significant abnormalities. Head CT, no significant abnormalities. ASSESSMENT: 1. Ischemic digits. His clinical presentation is definitely most concerning for an ischemic process affecting the very distal toes and fingers. There is no evidence for an infectious cause. Consider thrombotic causes and/or vasculitic disorders. In regard to autoimmune vasculitic disorders, evidence does not really suggest thromboangiitis obliterans. The smaller vessel involvement can be seen in disorders such as the ANCA associated vasculitides. Sometimes diseases such as polyarteritis nodosa could present with similar ischemic appearing digits. Of note, he has had some testicular pain in the last week or 2 associated with the onset of these other symptoms. This is not that uncommon with vasculitic disorders. In addition , he has had an elevated CPK which may indicate muscle involvement. He does not have much in regard to systemic symptoms or neurologic findings (mononeuritis multiplex) to give a more definitive diagnosis of a vasculitis. I am uncertain if his intestinal symptoms were directly a side effect of Bactrim or part of this systemic process. I think connective tissue diseases would be very unlikely to present in this manner. Other considerations would be thrombotic conditions such as antiphospholipid antibody syndrome, cryoglobulinemia. I think at this point in time, it is important to await the results of the biopsy results, along with the multiple laboratory studies that have been performed. I would continue treatment for vasculitis for now, even if the angiogram does not give a clear vasculitis appearance. Prednisone 60 mg per day should be sufficient to help reverse the inflammatory process if indeed this is related to a vasculitis. I agree in the interim to using anticoagulation. If he can get any benefit from vasodilation, that may allow for faster healing. 2. Elevated liver function tests. Once again I am uncertain as to the cause of the elevated liver test. There is no obvious infection cause in regard to hepatitis A, B or C. Most likely this is related to the process also affecting the feet. 3. Elevated CPK. CPK was fairly elevated without significant muscle symptoms. This may be contributing some to the elevated liver tests. If indeed he did have a problem such as polyarteritis nodosa, this could also give muscle involvement with elevated CPK. RECOMMENDATIONS: 1. Await results of laboratory testing and biopsy results. 2. We will discuss further with Radiology the results of the arteriogram. 3. Continue corticosteroids for now for possible vasculitis. Prednisone 60 mg per day or equivalent should be sufficient. 4. Repeat laboratory tests to observe for resolution of the elevated liver tests and muscle enzymes. 5. Continue anticoagulation in case this is related to multiple thrombotic events. /[id number]/MODL MTDD
[2016-12-06] MEDS: METHOCARBAMOL 500 MG TAB PO SCH (22:27)
[2016-12-06] MEDS: traZODone 50 MG TAB PO SCH (22:27)
[2016-12-07] MEDS: VANCOMYCIN HCL/NORMAL SALINE 250 ML IV SCH ×3 (00:20→17:03)
[2016-12-07] MEDS: HEPARIN/DEXTROSE 500 ML IV SCH ×2 (00:34→15:53)
[2016-12-07] MEDS: clonazePAM 1 MG TAB PO SCH ×3 (00:35→20:04)
[2016-12-07] MEDS: PAPAVERINE HCL 60 MG/2 ML SDV IV SCH ×8 (02:21→23:06)
[2016-12-07] MEDS: CEFEPIME HCL 1 GM in D5W 50 ML IV SCH ×3 (02:24→19:43)
[2016-12-07 04:26] LABS: ABSOLUTE NRBC COUNT 0.05 10^3/uL (0-0.01); ADD DIFF? YES; ADD MORPH? NO; ADD SCAN? NO; ATYPICAL LYMPHOCYTE FLAG 0 (0-99); FRAGMENT RBC FLAG 20 (0-99); HEMOGLOBIN 10.8 g/dL (13.7-17.5); LEFT SHIFT FLG 10 (0-99); LIPEMIA HEMOLYSIS FLAG 90 (0-99); MEAN CELL HEMOGLOBIN 32.2 pg (27.9-34.1); MEAN CELL HEMOGLOBIN CONCENTR. 33.8 g/dL (32.4-36.7); MEAN CELL VOLUME 95.5 fL (81.5-99.8); MEAN PLATELET VOLUME 11.6 fL (8.7-11.7); NRBC-AUTO% 0.2 % (0.0-0.2); PLATELET CLUMPS FLAG 10 (0-99); PLATELET COUNT 148 10^3/uL (150-400); RED BLOOD CELL COUNT 3.35 10^6/uL (4.40-6.38); RED CELL DISTRIBUTION WIDTH 14.9 % (11.5-15.2)
[2016-12-07 04:50] LABS: ALANINE AMINOTRANSFERASE 594 IU/L (21-72); ALBUMIN 2.4 g/dL (3.5-5.0); ALKALINE PHOSPHATASE 94 IU/L (38-126); ANION GAP 4 mEq/L (8-16); ASPARTATE AMINOTRANSFERASE 95 IU/L (17-59); BILIRUBIN,TOTAL 0.6 mg/dL (0.1-1.4); C-REACTIVE PROTEIN 40.6 mg/L (<10.0); CALCIUM 6.8 mg/dL (8.5-10.4); CARBON DIOXIDE 24 mEq/l (22-31); CHLORIDE 106 mEq/L (97-110); CREATININE 0.7 mg/dL (0.7-1.3); GLOMERULAR FILTRATION RATE > 60; GLUCOSE 250 mg/dL (70-100); LACTATE DEHYDROGENASE 1324 IU/L (313-618); SODIUM 134 mEq/L (134-144); TOTAL PROTEIN 5.3 g/dL (6.3-8.2)
[2016-12-07 05:01] LABS: MACROCYTES 1+; MICROCYTES 1+; POLYCHROMASIA 1+; SCHISTOCYTES 1+
[2016-12-07 05:04] LABS: CK-MB INTERPRETATION NEGATIVE (NEGATIVE); CREATINE KINASE-MB FRACTION 2.34 ng/mL (0-3.19)
[2016-12-07 05:09] LABS: SEDIMENTATION RATE 12 MM/HR (0-20)
[2016-12-07] MEDS: oxyCODONE IR 5 MG TAB PO PRN ×3 (05:13→17:24)
[2016-12-07] MEDS: HYDROmorphONE/DILAUDID 1 MG/ML SYR IVP PRN ×4 (05:14→22:58)
[2016-12-07] MEDS: methylPREDNISolone SOD SUCC 125 MG/2 ML VIAL IVP SCH (05:15)
[2016-12-07 05:22] LABS: PLATELET ESTIMATE DECREASED (ADEQ)
[2016-12-07] MEDS: predniSONE 20 MG TAB PO SCH (08:48)
[2016-12-07] MEDS: PARoxetine HCL 20 MG TAB PO SCH (08:48)
[2016-12-07] MEDS: niCARdipine 20 MG CAP PO SCH ×3 (08:49→22:55)
[2016-12-07] MEDS: PANTOPRAZOLE SODIUM 40 MG TAB PO SCH (08:49)
--- NOTE | 2016-12-07 09:03 | HOSPPROG ---
Hospitalist Progress Note Assessment/Plan: # ischemic digits/toes?: very atypical presentation; considerations for vasculitis (most likely), embolic, other etiologies - s/p angio yesterday - no clear angiographic diagnosis, likely small thrombus - continue heparin drip - continue steroids - prednisone 60 - continue vasodilators - will discuss with Infectious Disease continuing antibiotics - multiple serologies pending - biopsies pending - appreciate Rheumatology consult # neurologic issues including balance and change in speech - check MRI brain today # mild thrombocytopenia - resolving # elevated LFTs - likely the same underlying process, follow - resolving # abnormal testicular imaging and pain - also likely the same underlying process # depr - paxil # FCFT ## high risk Subjective: Feels like his toes are better today Objective: Vital Signs Temp Pulse Resp BP Pulse Ox 36 C 83 13 123/75 H 97 12/07/16 06:00 12/07/16 06:00 12/07/16 06:00 12/07/16 06:00 12/07/16 06:00 Microbiology 12/05/16 13:14 Gram Stain - Final Foot - Swab Laboratory Results 12/07/16 04:05 12/07/16 04:05 12/06/16 12/07/16 12/08/16 05:59 05:59 05:59 Intake Total 3800 3162 Output Total 1850 1450 Balance 1950 1712 PT 15.9 SEC (12.0-15.0) H 12/06/16 04:25 INR 1.27 (0.83-1.16) H 12/06/16 04:25 Vitals reviewed Pleasant, no acute distress Regular rate and rhythm, no murmurs rubs or gallops No respiratory distress, lungs clear to auscultation bilaterally, no wheezes or rales Abdomen soft nontender, nondistended, no hepatosplenomegaly Toes with morphine pink color, last blue/black ICD10 Worksheet Patient Problems: Problems Problem Status Onset Skin lesion Acute Ischemic toe Acute
--- NOTE | 2016-12-07 10:23 | SOAPPROG ---
SOAP Progress Note Assessment/Plan: Assessment: 1. Ischemia of digits - unclear etiology 2. ?recent R hand infection. 3. Microangiopathy (low plts, schistocytes, high LDH) Does not appear to be TTP. Suspect vasculitis. Plan: - continue heparin gtt and prednisone for now - will follow hemolysis labs and platelets - await skin biopsy results and other labs (JAK2, BCR-ABL, cryos) Subjective: feels about the same. Objective: exam: somewhat less erythema and ischemic areas on digits no new lesions exam otherwise unchanged Vital Signs Temp Pulse Resp BP Pulse Ox 36.2 C 79 13 111/75 97 12/07/16 10:00 12/07/16 10:00 12/07/16 10:00 12/07/16 10:00 12/07/16 10:00 Microbiology 12/05/16 13:14 Gram Stain - Final Foot - Swab Laboratory Results 12/07/16 04:05 12/07/16 04:05 12/06/16 12/07/16 12/08/16 05:59 05:59 05:59 Intake Total 3800 3162 Output Total 1850 1450 Balance 1950 1712 PT 15.9 SEC (12.0-15.0) H 12/06/16 04:25 INR 1.27 (0.83-1.16) H 12/06/16 04:25 ICD10 Worksheet Patient Problems: Problems Problem Status Onset Ischemic toe Acute Skin lesion Acute
[2016-12-07] MEDS ORDERED: DIAZEPAM 10 MG/2 ML SYR ONE (11:54)
[2016-12-07] MEDS ORDERED: GADOBUTROL 10 ML VIAL IVP ONE ×2 (11:56→12:32)
[2016-12-07] MEDS ORDERED: DIAZEPAM 10 MG/2 ML SYR IVP ONE (12:00)
--- NOTE | 2016-12-07 13:07 | PCMIDPN ---
Assessment/Plan: Assessment/Plan: 1. Digital ischemia with dry necrotic ulcers right hand and left digit: - Etiology unclear -So far blood cx, wound cx ngtd -Multiple studies, biopsies pending -On prednisone. Seen by Rheum, hem/onc, -Likely d/c atbx tomorrow if cx negative at 48 hours with close monitoring thereafter. -care coordinated with transit driver today (examined wounds together), care coordinated with Rn -patient/ updated on results so far. 2. Leukocytosis: - multifactorial -cultures thus far ngtd -monitor Meds vanco, cefepime Subjective: Afebrile. Denies sob, abd pain or diarrhea. right hand wound with some tenderness rik while dressing being removed. Hands and Feet warm. Objective: Vital Signs Temp Pulse Resp BP Pulse Ox 36.2 C 79 13 111/75 97 12/07/16 10:00 12/07/16 10:00 12/07/16 10:00 12/07/16 10:00 12/07/16 10:00 Microbiology 12/05/16 13:14 Gram Stain - Final Foot - Swab Laboratory Results 12/07/16 04:05 12/07/16 04:05 12/06/16 12/07/16 12/08/16 05:59 05:59 05:59 Intake Total 3800 3162 Output Total 1850 1450 Balance 1950 1712 ESR 12 MM/HR (0-20) 12/07/16 04:05 C-Reactive Protein 40.6 mg/L (<10.0) H 12/07/16 04:05 - Physical Exam General Appearance: alert, no apparent distress Respiratory: lungs clear Cardiac/Chest: regular rate, rhythm Extremities: No swelling Abdomen: normal bowel sounds, non-tender, soft, No distended Skin: other (digital ischemia changes involving several toes b/l and fingers etc. right hand with dry necrotic ulcer noted, and left finger with dry necrotic area as well. no surrounding cellulitis at present.) ICD10 Worksheet Patient Problems: Problems Problem Status Onset Ischemic toe Acute Skin lesion Acute
[2016-12-07 15:41] LABS: FINAL DIAGNOSIS See Comments; MICROSCOPIC DESCRIPTION See Comments; SPECIAL STUDIES See Comments
--- NOTE | 2016-12-07 15:43 | SOAPPROG ---
SOAP Progress Note Assessment/Plan: Assessment/Plan: Blue toes/fingers with testicular pain and no large/moderate vessel disease favor vasculitis Better today with steroids/vasodilation systemically and locally and systemic anticoagulation Right hand wound with minimal devaitalized tissue. No acute infection. Local care without debridement until vasculitis clears. May ultimately need skin graft Continue current mgmt MRI today pending Temporal artery, skin biopsies pending Continue to follow labs/tests for rheumatologic factors steroid exacerbated leucocytosis 12/06/16 16:16 12/07/16 15:40 Objective: Vital Signs Temp Pulse Resp BP Pulse Ox 36.4 C 89 16 122/73 H 96 12/07/16 14:00 12/07/16 14:00 12/07/16 14:00 12/07/16 14:00 12/07/16 14:00 Microbiology 12/05/16 13:14 Gram Stain - Final Foot - Swab Laboratory Results 12/07/16 04:05 12/07/16 04:05 12/06/16 12/07/16 12/08/16 05:59 05:59 05:59 Intake Total 3800 3162 Output Total 1850 1450 Balance 1950 1712 PT 15.9 SEC (12.0-15.0) H 12/06/16 04:25 INR 1.27 (0.83-1.16) H 12/06/16 04:25 ICD10 Worksheet Patient Problems: Problems Problem Status Onset Ischemic toe Acute Skin lesion Acute
--- NOTE | 2016-12-07 16:05 | PDINTPN ---
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 Stabilized with systemic anticoagulation, steroids for anti- inflammatory, and papavarine for vasospasm. Transaminitis: Improved Plan: Continue current treatment. If he seems to be failing, consider tPA. Awaiting further serologies, follow LFTs. 12/07/16 16:03 12/07/16 16:06 Subjective: Patient reports that pain is fairly well controlled. Appetite fairly good. Objective: Vital Signs Temp Pulse Resp BP Pulse Ox 36.4 C 89 16 122/73 H 96 12/07/16 14:00 12/07/16 14:00 12/07/16 14:00 12/07/16 14:00 12/07/16 14:00 Microbiology 12/05/16 13:14 Gram Stain - Final Foot - Swab Laboratory Results 12/07/16 04:05 12/07/16 04:05 12/06/16 12/07/16 12/08/16 05:59 05:59 05:59 Intake Total 3800 3162 Output Total 1850 1450 Balance 1950 1712 PT 15.9 SEC (12.0-15.0) H 12/06/16 04:25 INR 1.27 (0.83-1.16) H 12/06/16 04:25 Laboratory Tests 12/07/16 04:05 AST 95 H ALT 594 H Lactate Dehydrogenase 1324 H Physical Exam - Physical Exam General Appearance: alert, no apparent distress EENT: normal ENT inspection Neck: normal inspection Respiratory: lungs clear, No normal breath sounds Cardiac/Chest: normal peripheral pulses, regular rate, rhythm, edema Abdomen: normal bowel sounds, non-tender, soft Skin: normal color, warm/dry Extremities: other (unchanged bilateral toe>finger distal digital ischemia/ infarcts) ICD10 Worksheet Patient Problems: Problems Problem Status Onset Ischemic toe Acute Skin lesion Acute
[2016-12-07 16:45] LABS: C3 COMPLEMENT COMPONENT 77 mg/dL (75 - 175); C4 COMPLEMENT COMPONENT 18 mg/dL (14 - 40); IMMUNOGLOBULIN A 333 mg/dL (61 - 356); IMMUNOGLOBULIN G 797 mg/dL (767 - 1590); IMMUNOGLOBULIN M 59 mg/dL (37 - 286)
[2016-12-07 16:52] LABS: IG KAPPA FREE LIGHT CHAIN 2.42 mg/dL; IG LAMBDA FREE LIGHT CHAIN 2.76 mg/dL; KAPPA/LAMBDA RATIO 0.8768
[2016-12-07] MEDS: diphenhydrAMINE 25 MG CAP PO PRN (17:01)
[2016-12-07] MEDS: METHOCARBAMOL 500 MG TAB PO SCH (20:03)
[2016-12-07] MEDS: GABAPENTIN 300 MG CAP PO SCH (20:04)
[2016-12-07] MEDS: traZODone 50 MG TAB PO SCH (20:54)
[2016-12-08] MEDS: VANCOMYCIN HCL/NORMAL SALINE 250 ML IV SCH ×2 (00:32→09:04)
[2016-12-08] MEDS: PAPAVERINE HCL 60 MG/2 ML SDV IV SCH ×7 (01:59→23:03)
[2016-12-08] MEDS: CEFEPIME HCL 1 GM in D5W 50 ML IV SCH (02:02)
[2016-12-08] MEDS: HEPARIN/DEXTROSE 500 ML IV SCH ×2 (05:18→21:03)
[2016-12-08 06:31] LABS: ABSOLUTE NRBC COUNT 0.04 10^3/uL (0-0.01); ADD DIFF? YES; ADD MORPH? NO; ADD SCAN? NO; ATYPICAL LYMPHOCYTE FLAG 0 (0-99); FRAGMENT RBC FLAG 20 (0-99); HEMATOCRIT 29.3 % (40.0-51.0); LEFT SHIFT FLG 10 (0-99); LIPEMIA HEMOLYSIS FLAG 90 (0-99); MEAN CELL HEMOGLOBIN 33.2 pg (27.9-34.1); MEAN CELL HEMOGLOBIN CONCENTR. 34.1 g/dL (32.4-36.7); MEAN CELL VOLUME 97.3 fL (81.5-99.8); MEAN PLATELET VOLUME 11.7 fL (8.7-11.7); NRBC-AUTO% 0.1 % (0.0-0.2); PLATELET CLUMPS FLAG 10 (0-99); PLATELET COUNT 178 10^3/uL (150-400); RED BLOOD CELL COUNT 3.01 10^6/uL (4.40-6.38)
[2016-12-08 06:47] LABS: C1Q COMPLEMENT COMPONENT 13 mg/dL (12 - 22); C5 COMPLEMENT COMPONENT 20.1 mg/dL
[2016-12-08 07:14] LABS: PTT 1:1 NORMAL PLASMA 46 sec (26 - 36); REPTILASE TIME 22 sec (14 - 23); THROMBIN TIME 249 sec (15 - 23)
[2016-12-08 07:26] LABS: ALANINE AMINOTRANSFERASE 445 IU/L (21-72); ALBUMIN 2.3 g/dL (3.5-5.0); ALKALINE PHOSPHATASE 100 IU/L (38-126); ANION GAP 3 mEq/L (8-16); ASPARTATE AMINOTRANSFERASE 56 IU/L (17-59); BILIRUBIN,TOTAL 0.5 mg/dL (0.1-1.4); CALCIUM 6.9 mg/dL (8.5-10.4); CARBON DIOXIDE 23 mEq/l (22-31); CHLORIDE 111 mEq/L (97-110); CREATININE 0.6 mg/dL (0.7-1.3); GLOMERULAR FILTRATION RATE > 60; GLUCOSE 301 mg/dL (70-100); LACTATE DEHYDROGENASE 1131 IU/L (313-618); POTASSIUM 4.7 mEq/L (3.5-5.2); SODIUM 137 mEq/L (134-144)
[2016-12-08 07:30] LABS: MACROCYTES 1+; MICROCYTES 1+; PLATELET ESTIMATE ADEQUATE (ADEQ); SCHISTOCYTES 1+
[2016-12-08] MEDS ORDERED: D50W 25 GM/50 ML SYR IVP PRN (08:32)
--- NOTE | 2016-12-08 08:47 | HOSPPROG ---
Hospitalist Progress Note Assessment/Plan: # ischemic digits/toes?: very atypical presentation; considerations for vasculitis (most likely), embolic, other etiologies - continue heparin drip today - may transition to Lovenox soon - continue steroids - prednisone 60 - continue vasodilators, Cardene, papaverine - will discuss with Infectious Disease continuing antibiotics - multiple serologies pending - biopsies pending - appreciate Rheumatology consult - Dr Mcpherson would like to follow Mr. Sanchez as an outpatient; please notify him or his office on discharge # neurologic issues including balance and change in speech - MRI brain ok # hyperglycemia: on steroids - check A1c - start SSI, may need long acting insulin while on steroids # leukocytosis: Most likely stress reaction, also on steroids # mild thrombocytopenia - resolved # elevated LFTs - likely the same underlying process, follow - resolving # abnormal testicular imaging and pain - also likely the same underlying process # depr - paxil # FCFT ## high risk Subjective: No acute events; tired but does not have any complaints Objective: Vital Signs Temp Pulse Resp BP Pulse Ox 35.7 C L 70 16 139/71 H 94 12/08/16 04:00 12/08/16 07:21 12/08/16 07:21 12/08/16 07:21 12/08/16 07:21 Microbiology 12/05/16 13:14 Gram Stain - Final Foot - Swab Laboratory Results 12/08/16 06:20 12/08/16 06:20 12/07/16 12/08/16 12/09/16 05:59 05:59 05:59 Intake Total 3162 4300.5 Output Total 1450 3225 Balance 1712 1075.5 PT 15.9 SEC (12.0-15.0) H 12/06/16 04:25 INR 1.27 (0.83-1.16) H 12/06/16 04:25 Vitals reviewed Pleasant, no acute distress Regular rate and rhythm, no murmurs rubs or gallops No respiratory distress, lungs clear to auscultation bilaterally, no wheezes or rales Abdomen soft nontender, nondistended, no hepatosplenomegaly Toes with some distal black, necrotic appearing parts. More proximal part of toes mostly pinkish ICD10 Worksheet Patient Problems: Problems Problem Status Onset Skin lesion Acute Ischemic toe Acute
[2016-12-08] MEDS: niCARdipine 20 MG CAP PO SCH ×3 (09:04→21:02)
[2016-12-08] MEDS: PANTOPRAZOLE SODIUM 40 MG TAB PO SCH (09:04)
[2016-12-08] MEDS: PARoxetine HCL 20 MG TAB PO SCH (09:04)
[2016-12-08] MEDS: predniSONE 20 MG TAB PO SCH (09:04)
[2016-12-08] MEDS: HYDROmorphONE/DILAUDID 1 MG/ML SYR IVP PRN ×2 (09:52→16:21)
--- NOTE | 2016-12-08 10:33 | PCMIDPN ---
Assessment/Plan: Assessment/Plan: * Digital ischemia with ulceration over right dorsum of hand: Findings most compatible with vasculitis or thrombotic phenomena. No clinical findings of active infection. Suspect ulceration on right hand is also due to underlying process. Overall toes look significantly improved with 1 area of dry gangrenous change coordinator left 2nd toe distally. Rheumatology evaluation reviewed. Will discontinue vancomycin and cefepime and observe off antibiotics. * Right hand ulceration: No signs of infection on examination. See above discussion. * Leukocytosis: Likely multifactorial with contribution from vasculitis, leukemoid reaction, and ischemic changes. 12/08/16 10:30 Subjective: Patient complains of nausea after pain medication. Interval clinical, laboratory and radiographic findings reviewed. Objective: Vital Signs Temp Pulse Resp BP Pulse Ox 35.7 C L 70 16 139/71 H 94 12/08/16 04:00 12/08/16 07:21 12/08/16 07:21 12/08/16 07:21 12/08/16 07:21 Microbiology 12/05/16 13:14 Gram Stain - Final Foot - Swab Laboratory Results 12/08/16 06:20 12/08/16 06:20 12/07/16 12/08/16 12/09/16 05:59 05:59 05:59 Intake Total 3162 4300.5 Output Total 1450 3225 Balance 1712 1075.5 ESR 12 MM/HR (0-20) 12/07/16 04:05 C-Reactive Protein 40.6 mg/L (<10.0) H 12/07/16 04:05 Vancomycin # 4 Cefepime # 4 Blood cultures x3 sets no growth - Physical Exam General Appearance: alert, no apparent distress EENT: other (Petechial lesions over nose less prominent), No thrush Respiratory: lungs clear, No respiratory distress Cardiac/Chest: regular rate, rhythm, No systolic murmur Extremities: inflammation (Ischemic digits diffusely over feet with improved appearance overall; left 2nd toe at distally with dry gangrenous changes; right hand ulceration over dorsal aspect with eschar over approximately 1/3 of wound; no surrounding erythema; left hand with area of dry gangrenous change coordinator 5th digit) Abdomen: non-tender, No distended Skin: other (See musculoskeletal for details) ICD10 Worksheet Patient Problems: Problems Problem Status Onset Ischemic toe Acute Skin lesion Acute
--- NOTE | 2016-12-08 11:58 | WOCRNPDOC ---
[facility] Advanced Assessment Note - Skin Integrity Problem, Advanced Assess Left Anterior Fifth Finger Dressing Type: Open to Air Wound Bed Constitution: Stable Eschar Right Posterior Lateral Hand Dressing Type: Hydrofera Blue Ready, Kerlix Dressing Description: Clean/Dry, Intact Exudate Amount: Minimal Exudate Characteristic(s): Bloody Integumentary Issue Intervention: Dressing Changed, Lotion/Cream Applied ( Dimethicone shannon wound on back of hand and wrist) Shannon Wound Tissue: Erythema (mild, reduced from previous assessment on Tuesday.) Shannon Wound Swelling: Moderate Wound Bed Color: Brown, Red, Yellow Wound Bed Constitution: Granulation Tissue (15%), Smooth Tissue (25%), Mixed Loose & Adhered Slough/Eschar (60%) Skin Integrity Problem Comment: Wound appears improved with a reduction in dried exudate and adhered necrosis. Soaked with Vashe cleanser for 5 min. Puracyn gel to wound bed. Covered with hydrofera blue ready. Secured with pauline. Right Posterior Medial Hand Dressing Type: Hydrofera Blue Ready Dressing Description: Clean/Dry, Intact Exudate Amount: Scant Exudate Characteristic(s): Serosanguinous Integumentary Issue Intervention: Dressing Changed Skin Integrity Problem Comment: Soaked with Vashe cleanser. Puracyn gel to wound bed. Covered with a small piece of AMD foam. Wrapped with pauline. Right Second Toe Dressing Type: Open to Air Skin Integrity Problem Comment: Dry gangrene on distal toe. Left Dorsal First Toe Blister Dressing Type: Open to Air Wound Bed Constitution: Intact Serous Filled Blister Site Measurement - Head-to-Toe Length X Width X Depth (cm): 1.5x1.5xraised
[2016-12-08 14:04] LABS: HEMOGLOBIN A1C 6.1 % (4.0-6.0)
[2016-12-08] MEDS: INSULIN LISPRO 100 UNIT/ML SC SCH ×2 (14:11→18:46)
[2016-12-08] MEDS: oxyCODONE IR 5 MG TAB PO PRN (14:12)
[2016-12-08] MEDS: clonazePAM 1 MG TAB PO SCH ×2 (18:24→20:02)
[2016-12-08] MEDS: METHOCARBAMOL 500 MG TAB PO SCH (20:01)
[2016-12-08] MEDS: GABAPENTIN 300 MG CAP PO SCH (20:02)
[2016-12-08] MEDS: HYDROmorphONE/DILAUDID 2 MG TAB PO PRN (20:09)
[2016-12-08] MEDS: traZODone 50 MG TAB PO SCH (20:57)
[2016-12-08] MEDS: INSULIN GLARGINE 100 UNITS/ML SYRINGE SC SCH (21:08)
[2016-12-09] MEDS: HYDROmorphONE/DILAUDID 2 MG TAB PO PRN ×4 (00:12→20:35)
[2016-12-09 01:04] LABS: C-REACTIVE PROTEIN 15.7 mg/L (<10.0)
[2016-12-09 01:24] LABS: CK-MB INTERPRETATION NEGATIVE (NEGATIVE); CREATINE KINASE-MB FRACTION 1.63 ng/mL (0-3.19)
[2016-12-09] MEDS: PAPAVERINE HCL 60 MG/2 ML SDV IV SCH ×10 (01:55→23:07)
[2016-12-09 05:33] LABS: ABSOLUTE NRBC COUNT 0.02 10^3/uL (0-0.01); ADD DIFF? YES; ADD MORPH? NO; ADD SCAN? NO; ATYPICAL LYMPHOCYTE FLAG 0 (0-99); FRAGMENT RBC FLAG 20 (0-99); HEMATOCRIT 28.6 % (40.0-51.0); HEMOGLOBIN 9.9 g/dL (13.7-17.5); LEFT SHIFT FLG 10 (0-99); LIPEMIA HEMOLYSIS FLAG 90 (0-99); MEAN CELL HEMOGLOBIN 32.7 pg (27.9-34.1); MEAN CELL HEMOGLOBIN CONCENTR. 34.6 g/dL (32.4-36.7); MEAN CELL VOLUME 94.4 fL (81.5-99.8); MEAN PLATELET VOLUME 10.9 fL (8.7-11.7); NRBC-AUTO% 0.1 % (0.0-0.2); PLATELET CLUMPS FLAG 20 (0-99); PLATELET COUNT 204 10^3/uL (150-400); RED BLOOD CELL COUNT 3.03 10^6/uL (4.40-6.38); RED CELL DISTRIBUTION WIDTH 15.2 % (11.5-15.2)
[2016-12-09 05:46] LABS: ALANINE AMINOTRANSFERASE 376 IU/L (21-72); ALBUMIN 2.3 g/dL (3.5-5.0); ALKALINE PHOSPHATASE 91 IU/L (38-126); ANION GAP 3 mEq/L (8-16); ASPARTATE AMINOTRANSFERASE 69 IU/L (17-59); BILIRUBIN,TOTAL 0.4 mg/dL (0.1-1.4); CALCIUM 7.2 mg/dL (8.5-10.4); CARBON DIOXIDE 25 mEq/l (22-31); CHLORIDE 110 mEq/L (97-110); CREATININE 0.7 mg/dL (0.7-1.3); GLOMERULAR FILTRATION RATE > 60; GLUCOSE 231 mg/dL (70-100); LACTATE DEHYDROGENASE 926 IU/L (313-618); POTASSIUM 4.1 mEq/L (3.5-5.2); SODIUM 138 mEq/L (134-144); TOTAL PROTEIN 5.1 g/dL (6.3-8.2)
[2016-12-09 06:25] LABS: PLATELET ESTIMATE ADEQUATE (ADEQ)
[2016-12-09 06:33] LABS: MICROCYTES 1+; POLYCHROMASIA 1+; SCHISTOCYTES 1+
[2016-12-09] MEDS: niCARdipine 20 MG CAP PO SCH ×3 (08:09→22:17)
[2016-12-09] MEDS: PANTOPRAZOLE SODIUM 40 MG TAB PO SCH (08:09)
[2016-12-09] MEDS: PARoxetine HCL 20 MG TAB PO SCH (08:09)
[2016-12-09] MEDS: predniSONE 20 MG TAB PO SCH (08:09)
[2016-12-09] MEDS: INSULIN LISPRO 100 UNIT/ML SC SCH ×3 (09:06→18:36)
[2016-12-09] MEDS ORDERED: PNEUMOCOCCAL 0.5ML VACCINE VIAL IM ONE (10:09)
[2016-12-09 11:34] LABS: BCR/ABL FISH DISCLAIMER See Comments; BCR/ABL FISH RESULT SUMMARY Normal; BCR/ABL FISH RESULT TABLE See Comments; INTERPRETATION See Comments
[2016-12-09 13:17] LABS: JAK2 RESULT see interpretation; JAK2 V617F MUTATION DETECTION See Comments
[2016-12-09] MEDS: HEPARIN/DEXTROSE 500 ML IV SCH (14:15)
--- NOTE | 2016-12-09 14:56 | HOSPPROG ---
Hospitalist Progress Note Assessment/Plan: # ischemic digits/toes?: very atypical presentation; vasculitis (most likely) versus embolic, other etiologies - continue heparin drip today - switch Lovenox tomorrow - continue steroids - prednisone 60 - continue vasodilators, Cardene, papaverine - antibodies discontinued - multiple serologies pending - biopsies pending - appreciate Rheumatology consult - Dr Mcpherson would like to follow Mr. Sanchez as an outpatient; please notify him or his office on discharge # neurologic issues including balance and change in speech - MRI brain ok # hyperglycemia: on steroids - check A1c - start SSI, may need long acting insulin while on steroids # leukocytosis: Most likely stress reaction, also on steroids - improving # mild thrombocytopenia - resolved # elevated LFTs - likely the same underlying process, follow - resolving # abnormal testicular imaging and pain - also likely the same underlying process # depr - paxil # FCFT ## high risk Subjective: feels like toes are getting better. No new complaints Objective: Vital Signs Temp Pulse Resp BP Pulse Ox 36.5 C 68 14 154/85 H 97 12/09/16 10:40 12/09/16 14:34 12/09/16 14:34 12/09/16 14:34 12/09/16 10:40 Microbiology 12/05/16 13:14 Gram Stain - Final Foot - Swab Wound Culture - Final Laboratory Results 12/09/16 05:18 12/09/16 05:18 12/08/16 12/09/16 12/10/16 05:59 05:59 05:59 Intake Total 4300.5 2074.8 475 Output Total 3225 500 Balance 1075.5 1574.8 475 PT 15.9 SEC (12.0-15.0) H 12/06/16 04:25 INR 1.27 (0.83-1.16) H 12/06/16 04:25 - Physical Exam Constitutional: no apparent distress, appears nourished, not in pain Eyes: anicteric sclera, EOMI Ears, Nose, Mouth, Throat: moist mucous membranes, hearing normal Cardiovascular: regular rate and rhythym, no murmur, rub, or gallop Respiratory: no respiratory distress, no rales or rhonchi, clear to auscultation Gastrointestinal: normoactive bowel sounds, soft, non-tender abdomen, no palpable masses Skin: other ( all toes with various degrees of ski media. Large blister left great toe. Left fingers with multiple ischemic areas) Neurologic: AAOx3 Psychiatric: interacting appropriately, not anxious, not encephalopathic, thought process linear ICD10 Worksheet Patient Problems: Problems Problem Status Onset Ischemic toe Acute Skin lesion Acute
--- NOTE | 2016-12-09 17:31 | PCMIDPN ---
Assessment/Plan: Assessment/Plan: * Digital ischemia with ulceration over right dorsum of hand: Findings most compatible with vasculitis or thrombotic phenomena. Remains without clinical findings of infection and blood cultures are negative. Antibiotics discontinued yesterday. Plan to continue observation off antibiotics. Overall ischemic changes have improved with vasodilators and prednisone. * Right hand ulceration: No signs of infection on examination. Continued local wound care * Leukocytosis: Likely multifactorial with contribution from vasculitis, leukemoid reaction, and ischemic changes - decreased today. Will sign off. Please call with questions or concerns. 12/09/16 17:28 Objective: Vital Signs Temp Pulse Resp BP Pulse Ox 36.6 C 69 18 170/93 H 95 12/09/16 16:12 12/09/16 16:12 12/09/16 16:12 12/09/16 16:12 12/09/16 16:12 Microbiology 12/05/16 13:14 Gram Stain - Final Foot - Swab Wound Culture - Final Laboratory Results 12/09/16 05:18 12/09/16 05:18 12/08/16 12/09/16 12/10/16 05:59 05:59 05:59 Intake Total 4300.5 2074.8 725 Output Total 3225 500 Balance 1075.5 1574.8 725 ESR 12 MM/HR (0-20) 12/07/16 04:05 C-Reactive Protein 15.7 mg/L (<10.0) H 12/09/16 00:10 No antibiotic therapy Blood cultures x3 no growth - Physical Exam General Appearance: alert, no apparent distress EENT: other (Petechial rash over nose significantly decreased) Cardiac/Chest: regular rate, rhythm Extremities: inflammation (Ischemic changes of feet bilaterally significantly less prominent; dry gangrene of tip of right 2nd toe present; no cellulitic changes present; right dorsal hand with ulceration with eschar beginning to pull away; no surrounding cellulitis) Abdomen: non-tender, No distended ICD10 Worksheet Patient Problems: Problems Problem Status Onset Ischemic toe Acute Skin lesion Acute
[2016-12-09] MEDS: clonazePAM 1 MG TAB PO SCH ×2 (18:34→20:35)
[2016-12-09] MEDS: traZODone 50 MG TAB PO SCH (20:35)
[2016-12-09] MEDS: METHOCARBAMOL 500 MG TAB PO SCH (20:36)
[2016-12-09] MEDS: GABAPENTIN 300 MG CAP PO SCH (20:36)
[2016-12-09] MEDS: INSULIN GLARGINE 100 UNITS/ML SYRINGE SC SCH (20:56)
[2016-12-10] MEDS: PAPAVERINE HCL 60 MG/2 ML SDV IV SCH ×8 (02:38→22:59)
[2016-12-10 05:31] LABS: % IMMATURE GRANULYOCYTES 1.7 % (0.0-1.1); ABSOLUTE IMMATURE GRANULOCYTES 0.23 10^3/uL (0.00-0.10); ABSOLUTE NRBC COUNT 0.02 10^3/uL (0-0.01); ADD DIFF? NO; ADD MORPH? NO; ADD SCAN? NO; ATYPICAL LYMPHOCYTE FLAG 10 (0-99); FRAGMENT RBC FLAG 20 (0-99); HEMATOCRIT 31.8 % (40.0-51.0); HEMOGLOBIN 10.5 g/dL (13.7-17.5); LEFT SHIFT FLG 10 (0-99); LIPEMIA HEMOLYSIS FLAG 80 (0-99); MEAN CELL HEMOGLOBIN 32.1 pg (27.9-34.1); MEAN CELL VOLUME 97.2 fL (81.5-99.8); MEAN PLATELET VOLUME 11.4 fL (8.7-11.7); NRBC-AUTO% 0.1 % (0.0-0.2); PLATELET CLUMPS FLAG 0 (0-99); PLATELET COUNT 265 10^3/uL (150-400); RED BLOOD CELL COUNT 3.27 10^6/uL (4.40-6.38); RED CELL DISTRIBUTION WIDTH 15.1 % (11.5-15.2)
[2016-12-10 05:44] LABS: ALANINE AMINOTRANSFERASE 345 IU/L (21-72); ALBUMIN 2.5 g/dL (3.5-5.0); ALKALINE PHOSPHATASE 86 IU/L (38-126); ANION GAP 5 mEq/L (8-16); ASPARTATE AMINOTRANSFERASE 55 IU/L (17-59); BILIRUBIN,TOTAL 0.4 mg/dL (0.1-1.4); CALCIUM 7.6 mg/dL (8.5-10.4); CARBON DIOXIDE 26 mEq/l (22-31); CHLORIDE 108 mEq/L (97-110); CREATININE 0.6 mg/dL (0.7-1.3); GLOMERULAR FILTRATION RATE > 60; GLUCOSE 122 mg/dL (70-100); LACTATE DEHYDROGENASE 1008 IU/L (313-618); POTASSIUM 4.4 mEq/L (3.5-5.2); SODIUM 139 mEq/L (134-144); TOTAL PROTEIN 5.3 g/dL (6.3-8.2)
--- NOTE | 2016-12-10 07:11 | WOCRNPDOC ---
[facility] Advanced Assessment Note - Skin Integrity Problem, Advanced Assess Right Hand Surgical Wound/Incision Dressing Type: Kerlix, Other (AMD foam) Other Dressing Type: AMD foam Dressing Description: Clean/Dry, Intact Exudate Amount: Scant Exudate Color: Reddish/Yellow Exudate Characteristic(s): Dried, Serosanguinous Integumentary Issue Intervention: Dressing Changed, Hydrogel Applied (Puracyn wound gel) Shannon Wound Tissue: Erythema (receding from existing marking) Shannon Wound Swelling: Mild Wound Bed Color: Black, Red Wound Bed Constitution: Granulation Tissue, Unstable Eschar Site Odor: None Skin Integrity Problem Comment: Assessed wound w/ Dr. Mancuso from ID. Existing foam dressing removed w/ NS, as it was dried and adhered to the foam. Wound margins beginning to contract on the larger wound proximal to the 2nd digit, and there is a rim of red, well-perfused tissue circumferentially. Patient has 2 + radial pulse, and distal phlanges are warm w/ <3 sec capillary refill. Wound care will continue to monitor this site daily, potentially changing dressing to initiate autolysis of necrotic tissue if adequate perfusion remains evident. Wound bed proximal to the 4th digit is dry, scabbed, w/ no apparent necrosis. Applied copious Puracyn wound gel to wound beds, and covered both sites w/ Hydrofera Blue Ready foam dressing. lead principal technical architect Zaria present and assisting. Left Anterior Fifth Finger Dressing Type: Open to Air Exudate Amount: None Exudate Characteristic(s): None Shannon Wound Tissue: Erythema (mild), Intact Shannon Wound Swelling: None Wound Bed Color: Black Wound Bed Constitution: Stable Eschar Skin Integrity Problem Comment: Site remains dry and stable, w/ no significant shannon-wound erythema or swelling. Capillary refill distal to this wound demonstrates adequate perfusion, <3 seconds. Wound care will continue to monitor as patient's vascular status changes. Site left LUZ. Left Fingers 2,3,4th Dressing Type: Open to Air Exudate Amount: None Exudate Characteristic(s): None Shannon Wound Tissue: Erythema (receding since previous assessment), Swollen Shannon Wound Swelling: Mild Wound Bed Color: Black Skin Integrity Problem Comment: Distal aspect of these digits continue to remain blue/black, though erythema is receding from previous markings. Patient also reports decreased swelling and increased ability to move his fingers. Livido reticularis noted in previous assessment has resolved, and patient has 2 + radial pulse. Wound care will continue to monitor site as it evolves. Bilateral Toe Dressing Type: Mepilex Transfer Dressing Description: Clean/Dry, Intact Exudate Amount: Scant Shannon Wound Tissue: Erythema (marked during previous assessment) Shannon Wound Swelling: Moderate Wound Bed Color: Black, Blue, Red Skin Integrity Problem Comment: Blue/black tissue noted to distal aspects of toes, darker in color on R 2nd toe and L great toe. Erythema markerd during previous assessment, extending onto metatarsals, remains confined to those markings. There is a new blister on the dorsum of the L great toe, presently serous-filled and intact. In addition, there is a milky, white exudate emmanating from the tissues surrounding the nail bed on patient's L great toe, L 4th toe, and R 4th and 5th toe. Mepilex Transfer is currently woven between all of the toes bilaterally to help manage moisture and exudate, and this is appropriate to continue at this time.
[2016-12-10] MEDS: INSULIN LISPRO 100 UNIT/ML SC SCH ×3 (08:08→17:52)
[2016-12-10] MEDS: PARoxetine HCL 20 MG TAB PO SCH (08:13)
[2016-12-10] MEDS: predniSONE 20 MG TAB PO SCH (08:14)
[2016-12-10] MEDS: niCARdipine 20 MG CAP PO SCH ×3 (08:14→22:58)
[2016-12-10] MEDS: PANTOPRAZOLE SODIUM 40 MG TAB PO SCH (08:14)
--- NOTE | 2016-12-10 09:25 | SOAPPROG ---
SOAP Progress Note Assessment/Plan: Assessment: 1. Ischemia of digits - unclear etiology 2. ?recent R hand infection. 3. Microangiopathy (low plts, schistocytes, high LDH) Counts have recovered. JAK2, BCR-ABL, cryos normal. This appears to be a vasculitis rather than a primary hematological disorder. Plan: - further management per rheumatology - will sign off at this point. please reconsult if there are additional questions. Subjective: no change. Objective: exam: no new lesions on hands or feet. some eschar forming on tips of a few toes otherwise unchanged Vital Signs Temp Pulse Resp BP Pulse Ox 36.4 C 64 14 154/92 H 94 12/10/16 08:00 12/10/16 08:00 12/10/16 08:00 12/10/16 09:03 12/10/16 08:00 Laboratory Results 12/10/16 04:27 12/10/16 04:27 12/09/16 12/10/16 12/11/16 05:59 05:59 05:59 Intake Total 2074.8 725 Output Total 500 Balance 1574.8 725 PT 15.9 SEC (12.0-15.0) H 12/06/16 04:25 INR 1.27 (0.83-1.16) H 12/06/16 04:25 ICD10 Worksheet Patient Problems: Problems Problem Status Onset Ischemic toe Acute Skin lesion Acute
[2016-12-10] MEDS: HYDROmorphONE/DILAUDID 2 MG TAB PO PRN ×3 (11:48→20:06)
--- NOTE | 2016-12-10 12:56 | WOCRNPDOC ---
[facility] Advanced Assessment Note - Skin Integrity Problem, Advanced Assess Right Hand Surgical Wound/Incision Dressing Type: Hydrofera Blue, Kerlix Dressing Description: Intact Exudate Amount: Scant Exudate Color: Reddish/Yellow Exudate Characteristic(s): Serosanguinous Integumentary Issue Intervention: Dressing Changed, Mechanical Debridement ( removed loose necrotic tissue w/ gauze, wound cleanser and forceps.) Linda Wound Tissue: Erythema (mild), Dry Linda Wound Swelling: Mild Wound Bed Color: Red, Yellow Wound Bed Constitution: Granulation Tissue (20%), Smooth Tissue (60%), Loose Slough (20%) Skin Integrity Problem Comment: Upon removal of dressing a large piece of very loose, black necrotic tissue began to come off on the dressing. I was able to lift this off the wound bed entirely, and remove it w/ forceps. Remaining wound bed is a mix of smooth and granulating tissues, w/ some loose slough noted. Patient is presently too tender to remove this slough via cleansing w/ gauze and wound cleanser. Other wound proximal to 4th phlange is entirely scabbed and dry. Reapplied copious amounts of Puracyn wound gel to both wound beds, and covered w/ Hydrofera Blue ready. Will reassess site on Tuesday 12/12 and possibly initiate a topical form of debridement. Linda-wound tissue is presently peeling and dry, sloughing off to reveal healthy, intact skin underneath. fitness directorELIE Lambert present and assisting. Bilateral Toe Dressing Type: Mepilex Transfer (woven between toes) Dressing Description: Clean/Dry, Intact Exudate Amount: None Exudate Characteristic(s): None Linda Wound Tissue: Erythema, Swollen Linda Wound Swelling: Moderate Wound Bed Color: Black, Purple, Red Skin Integrity Problem Comment: Toes on bilateral feet continue to have some ishemic injury distally, most pronounced on the R 2nd toe, and range in color from black to dark purple to deep red. Patient continues to have +2 DP pulses bilaterally, and cap refill in both 5th digits is <3 seconds. New blisters have formed on the dorsal aspects of the L 3rd and 4th toes, presently serous-filled and intact. Mepilex Transfer is woven between toes and covereing blistered skin to protect/manage any exudate. The tissue intergrity in these digits continues to evolve daily, and wound care will continue to round daily to monitor. Right Second Toe Dressing Type: Open to Air Exudate Amount: None Exudate Characteristic(s): None Linda Wound Tissue: Erythema, Swollen Linda Wound Swelling: Moderate Wound Bed Color: Black Site Odor: None Skin Integrity Problem Comment: Dry gangrene noted to distal aspect of R 2nd toe , previously swollen and edematous, now increasingly dry, dessicated, and woody in appearance. Advised to continue to keep this site dry using BID application of Povidone/Iodine, w/ the goal of stabilizing the necrosis and protecting the linda-wound tissue from moisture-related damage. Left Dorsal First Toe Blister Dressing Type: Mepilex Transfer Dressing Description: Clean/Dry Exudate Amount: None Exudate Characteristic(s): None Linda Wound Tissue: Erythema, Swollen, Painful/Tender Linda Wound Swelling: Moderate Wound Bed Constitution: Intact Serous Filled Blister Skin Integrity Problem Comment: Large, serous-filled blister remains intact to dorsal aspect of L great toe. There is a small area proximally where the blister appears as though it might begin to de-roof, however no exudate was expressed when gentle pressure applied. Blister has increased in size since previous assessment (now 2cmx1.6cm), and is taut. Covered site w/ Mepilex Transfer to absorb any moisture and manage exudate in the event the blister de- roofs.
[2016-12-10] MEDS: HEPARIN 10,000 UNIT/10 ML MDV IVP PRN (13:16)
[2016-12-10] MEDS: clonazePAM 1 MG TAB PO SCH ×2 (16:44→20:08)
[2016-12-10] MEDS ORDERED: ENOXAPARIN 100 MG/ML SYR SC SCH (18:23)
--- NOTE | 2016-12-10 18:25 | HOSPPROG ---
Hospitalist Progress Note Assessment/Plan: # ischemic digits/toes?: very atypical presentation; vasculitis (most likely) versus embolic, other etiologies - switch Lovenox tonight - continue steroids - prednisone 60 - continue vasodilators, Cardene, papaverine - antibodies discontinued - multiple serologies pending - biopsies pending - appreciate Rheumatology consult - Dr Mcpherson would like to follow Mr. Sanchez as an outpatient; please notify him or his office on discharge # neurologic issues including balance and change in speech - MRI brain ok # hyperglycemia: on steroids - check A1c - start SSI, may need long acting insulin while on steroids # leukocytosis: Most likely stress reaction, also on steroids - improving # mild thrombocytopenia - resolved # elevated LFTs - likely the same underlying process, follow - resolving # abnormal testicular imaging and pain - also likely the same underlying process # depr - paxil # FCFT ## high risk Subjective: toes cont to improve Objective: Vital Signs Temp Pulse Resp BP Pulse Ox 37 C 69 20 174/84 H 96 12/10/16 15:09 12/10/16 15:09 12/10/16 15:09 12/10/16 15:46 12/10/16 15:09 Laboratory Results 12/10/16 04:27 12/10/16 04:27 12/09/16 12/10/16 12/11/16 05:59 05:59 05:59 Intake Total 2074.8 725 1000 Output Total 500 Balance 1574.8 725 1000 PT 15.9 SEC (12.0-15.0) H 12/06/16 04:25 INR 1.27 (0.83-1.16) H 12/06/16 04:25 - Physical Exam Constitutional: no apparent distress, appears nourished, not in pain Eyes: anicteric sclera, EOMI Ears, Nose, Mouth, Throat: moist mucous membranes Respiratory: no respiratory distress, no rales or rhonchi, clear to auscultation Musculoskeletal: other (ischemic toes color has lightened a little) Neurologic: AAOx3 Psychiatric: interacting appropriately, not anxious, not encephalopathic, thought process linear ICD10 Worksheet Patient Problems: Problems Problem Status Onset Ischemic toe Acute Skin lesion Acute
[2016-12-10] MEDS: METHOCARBAMOL 500 MG TAB PO SCH (20:06)
[2016-12-10] MEDS: INSULIN GLARGINE 100 UNITS/ML SYRINGE SC SCH (20:06)
[2016-12-10] MEDS: GABAPENTIN 300 MG CAP PO SCH (20:07)
[2016-12-10] MEDS: traZODone 50 MG TAB PO SCH (20:07)
[2016-12-11] MEDS: PAPAVERINE HCL 60 MG/2 ML SDV IV SCH ×8 (02:19→23:05)
[2016-12-11 05:55] LABS: % IMMATURE GRANULYOCYTES 1.3 % (0.0-1.1); ADD DIFF? NO; ADD MORPH? NO; ADD SCAN? NO; ATYPICAL LYMPHOCYTE FLAG 0 (0-99); FRAGMENT RBC FLAG 10 (0-99); HEMATOCRIT 34.3 % (40.0-51.0); HEMOGLOBIN 11.7 g/dL (13.7-17.5); LEFT SHIFT FLG 0 (0-99); LIPEMIA HEMOLYSIS FLAG 90 (0-99); MEAN CELL HEMOGLOBIN CONCENTR. 34.1 g/dL (32.4-36.7); MEAN CELL VOLUME 96.6 fL (81.5-99.8); MEAN PLATELET VOLUME 11.1 fL (8.7-11.7); PLATELET CLUMPS FLAG 0 (0-99); PLATELET COUNT 326 10^3/uL (150-400); RED BLOOD CELL COUNT 3.55 10^6/uL (4.40-6.38); RED CELL DISTRIBUTION WIDTH 14.6 % (11.5-15.2)
[2016-12-11 06:26] LABS: ALANINE AMINOTRANSFERASE 292 IU/L (21-72); ALBUMIN 2.7 g/dL (3.5-5.0); ALKALINE PHOSPHATASE 95 IU/L (38-126); ANION GAP 7 mEq/L (8-16); ASPARTATE AMINOTRANSFERASE 44 IU/L (17-59); BILIRUBIN,TOTAL 0.4 mg/dL (0.1-1.4); CALCIUM 8.5 mg/dL (8.5-10.4); CARBON DIOXIDE 26 mEq/l (22-31); CHLORIDE 106 mEq/L (97-110); CREATININE 0.6 mg/dL (0.7-1.3); GLOMERULAR FILTRATION RATE > 60; GLUCOSE 133 mg/dL (70-100); LACTATE DEHYDROGENASE 875 IU/L (313-618); POTASSIUM 4.3 mEq/L (3.5-5.2); SODIUM 139 mEq/L (134-144); TOTAL PROTEIN 5.6 g/dL (6.3-8.2)
[2016-12-11] MEDS: PANTOPRAZOLE SODIUM 40 MG TAB PO SCH (09:40)
[2016-12-11] MEDS: niCARdipine 20 MG CAP PO SCH ×3 (09:40→23:05)
[2016-12-11] MEDS: predniSONE 20 MG TAB PO SCH (09:40)
[2016-12-11] MEDS: ENOXAPARIN 100 MG/ML SYR SC SCH ×2 (09:41→19:53)
[2016-12-11] MEDS: PARoxetine HCL 20 MG TAB PO SCH (09:41)
[2016-12-11] MEDS: INSULIN LISPRO 100 UNIT/ML SC SCH ×3 (09:44→17:55)
--- NOTE | 2016-12-11 12:24 | HOSPPROG ---
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 Sanchez as an outpatient; please notify him or his office on discharge # neurologic issues including balance and change in speech - MRI brain ok # hyperglycemia: on steroids * continue Lantus. Probably will go home on this # leukocytosis: Most likely stress reaction, also on steroids - improving # mild thrombocytopenia - resolved # elevated LFTs - likely the same underlying process, follow - resolving # abnormal testicular imaging and pain - also likely the same underlying process # depr - paxil # FCFT ## high risk Subjective: continues to improve Objective: Vital Signs Temp Pulse Resp BP Pulse Ox 37.1 C 68 16 158/93 H 93 12/11/16 07:16 12/11/16 07:16 12/11/16 07:16 12/11/16 07:16 12/11/16 07:16 Microbiology 12/05/16 13:05 Blood Culture - Final Blood 12/05/16 12:40 Blood Culture - Final Blood Laboratory Results 12/11/16 04:47 12/11/16 04:47 12/10/16 12/11/16 12/12/16 05:59 05:59 05:59 Intake Total 725 1450 300 Balance 725 1450 300 PT 15.9 SEC (12.0-15.0) H 12/06/16 04:25 INR 1.27 (0.83-1.16) H 12/06/16 04:25 - Physical Exam Constitutional: no apparent distress, appears nourished, not in pain Eyes: anicteric sclera, EOMI Ears, Nose, Mouth, Throat: moist mucous membranes Respiratory: no respiratory distress Musculoskeletal: other ( improving ischemic toes. Right 2nd toe is the worst.) Neurologic: AAOx3 Psychiatric: interacting appropriately, not anxious, not encephalopathic, thought process linear ICD10 Worksheet Patient Problems: Problems Problem Status Onset Ischemic toe Acute Skin lesion Acute
[2016-12-11] MEDS: HYDROmorphONE/DILAUDID 2 MG TAB PO PRN ×2 (12:36→18:01)
[2016-12-11] MEDS: clonazePAM 1 MG TAB PO SCH ×2 (17:56→19:52)
[2016-12-11] MEDS: INSULIN GLARGINE 100 UNITS/ML SYRINGE SC SCH (19:49)
[2016-12-11] MEDS: METHOCARBAMOL 500 MG TAB PO SCH (19:51)
[2016-12-11] MEDS: GABAPENTIN 300 MG CAP PO SCH (19:51)
[2016-12-11] MEDS: traZODone 50 MG TAB PO SCH (19:51)
[2016-12-12] MEDS: PAPAVERINE HCL 60 MG/2 ML SDV IV SCH ×8 (02:10→22:55)
[2016-12-12 05:53] LABS: LACTATE DEHYDROGENASE 807 IU/L (313-618)
[2016-12-12] MEDS: ENOXAPARIN 100 MG/ML SYR SC SCH ×2 (08:12→20:13)
[2016-12-12] MEDS: niCARdipine 20 MG CAP PO SCH ×3 (08:12→22:53)
[2016-12-12] MEDS: predniSONE 20 MG TAB PO SCH (08:13)
[2016-12-12] MEDS: PARoxetine HCL 20 MG TAB PO SCH (08:13)
[2016-12-12] MEDS: PANTOPRAZOLE SODIUM 40 MG TAB PO SCH (08:13)
[2016-12-12] MEDS: INSULIN LISPRO 100 UNIT/ML SC SCH ×3 (09:05→17:31)
[2016-12-12] MEDS: HYDROmorphONE/DILAUDID 2 MG TAB PO PRN (11:00)
--- NOTE | 2016-12-12 12:37 | WOCRNPDOC ---
WOCRN Advanced Assessment Note - Skin Integrity Problem, Advanced Assess Right Hand Surgical Wound/Incision Dressing Type: Open to Air (patient just out of the shower, dressing off.) Exudate Amount: None Exudate Characteristic(s): None Integumentary Issue Intervention: Dressing Applied, Hydrogel Applied (Puracyn wound gel) Shannon Wound Tissue: Scaly, Xerotic Shannon Wound Swelling: Mild (immediately shannon-wound) Wound Bed Color: Red, Yellow Wound Bed Constitution: Granulation Tissue, Smooth Tissue, Adhered Slough Wound Edges: Epithelizing, Epibole (on proximal edge from 11-12 o-clock) Site Odor: None Skin Integrity Problem Comment: Dressing removed for shower, and LUZ when assessed. Wound was already dry and dusky from being LUZ. There remains some adhered slough in the wound bed, w/ areas of both granulation and smooth tissue evident. Along the proximal edge at 11-12 o'clock, there is some epibole noted. Reapplied dressing of HFB w/ copious Puracyn gel to moisturize wound bed. Overall wound appearance remarkably improved since previous assessments last week. Wound care will continue to follow these wounds daily. Bilateral Toe Dressing Type: Mepilex Transfer (woven in-between toes) Shannon Wound Tissue: Erythema (marked, still w/in existing markings and receding) , Swollen Shannon Wound Swelling: Moderate Wound Bed Color: Black, Purple, Red Wound Bed Constitution: Intact Serous Filled Blister, De-roofed Serous Blister, Draining Serous Blister Site Odor: None Skin Integrity Problem Comment: Distal aspects of most toes remains dark purple or black (especially R 2nd toe). There are also various intact, draining, or de- roofed blisters , primarily on the dorsum of the toes. Since previous assessment on 12/10, large blister of L great toe has de-roofed. Dressing applied today to cover/protect wound bed. Continue w/ Mepilex Transfer between toes to manage exudate. Will continue to monitor these blisters daily as they evolve. Report given to service line bus cleaner Heidi. Left Dorsal First Toe Blister Dressing Type: Open to Air Exudate Amount: Scant Exudate Color: Clear Exudate Characteristic(s): Serous Integumentary Issue Intervention: Dressing Applied, Hydrogel Applied Shannon Wound Tissue: Erythema, Swollen Shannon Wound Swelling: Moderate Wound Bed Color: Red Wound Bed Constitution: Smooth Tissue, De-roofed Serous Blister Site Measurement - Head-to-Toe Length X Width X Depth (cm): 1.8cmx1.2cmx0.1cm Skin Integrity Problem Comment: Previously intact blister on dorsal aspect of L great toe has now de-roofed, revealing a red, beefy wound bed which appears well -vascularized. No apparent necrosis noted. There remains a partial flap of skin extending proximally, which I partially re-approximated. Dressing of Puracyn gel and Hydrofera Blue Ready applied, and secured w/ Kerlix/coban.
[2016-12-12] MEDS: metFORMIN HCL 850 MG TAB PO SCH ×2 (12:44→16:34)
[2016-12-12] MEDS: oxyCODONE IR 5 MG TAB PO PRN ×2 (14:45→20:12)
--- NOTE | 2016-12-12 15:01 | HOSPPROG ---
Hospitalist Progress Note Assessment/Plan: # ischemic digits/toes?: very atypical presentation; vasculitis (most likely) versus embolic, other etiologies - Continue Lovenox over the weekend - will discuss with Rheumatology this needs to be continued retirement - continue steroids - prednisone 60 - continue vasodilators, Cardene, papaverine - multiple serologies pending - biopsies pending - appreciate Rheumatology consult - Dr Mcpherson would like to follow Mr. Sanchez as an outpatient; please notify him or his office on discharge # neurologic issues including balance and change in speech - MRI brain ok # hyperglycemia: on steroids * a.m. blood sugars are low * will DC Lantus and start metformin * hemoglobin A1c was 6.1 does metformin is indicated anyway to prevent progression to diabetes # leukocytosis: Most likely stress reaction, also on steroids - improving # mild thrombocytopenia - resolved # elevated LFTs - likely the same underlying process, follow - resolving # abnormal testicular imaging and pain - also likely the same underlying process # depr - paxil # FCFT ## high risk Subjective: toes continue improved. Has been ambulating Objective: Vital Signs Temp Pulse Resp BP Pulse Ox 36.7 C 70 18 157/98 H 94 12/12/16 11:55 12/12/16 11:55 12/12/16 11:55 12/12/16 11:55 12/12/16 11:55 Laboratory Results 12/11/16 04:47 12/11/16 04:47 12/11/16 12/12/16 12/13/16 05:59 05:59 05:59 Intake Total 1450 800 550 Balance 1450 800 550 PT 15.9 SEC (12.0-15.0) H 12/06/16 04:25 INR 1.27 (0.83-1.16) H 12/06/16 04:25 - Physical Exam Constitutional: no apparent distress, appears nourished, not in pain Eyes: anicteric sclera, EOMI Respiratory: no respiratory distress Musculoskeletal: other ( slightly improving ischemic toes bilaterally) Neurologic: AAOx3 Psychiatric: interacting appropriately, not anxious, not encephalopathic, thought process linear ICD10 Worksheet Patient Problems: Problems Problem Status Onset Ischemic toe Acute Skin lesion Acute
[2016-12-12] MEDS: clonazePAM 1 MG TAB PO SCH ×2 (16:34→20:11)
[2016-12-12] MEDS: METHOCARBAMOL 500 MG TAB PO SCH (20:11)
[2016-12-12] MEDS: GABAPENTIN 300 MG CAP PO SCH (20:11)
[2016-12-12] MEDS: traZODone 50 MG TAB PO SCH (20:12)
[2016-12-12] MEDS: ACETAMINOPHEN 325 MG TAB PO PRN (20:17)
[2016-12-12] MEDS: diphenhydrAMINE 25 MG CAP PO PRN (20:23)
[2016-12-13] MEDS: PAPAVERINE HCL 60 MG/2 ML SDV IV SCH ×4 (01:49→12:21)
[2016-12-13] MEDS: oxyCODONE IR 5 MG TAB PO PRN ×3 (04:27→12:21)
[2016-12-13 06:04] LABS: LACTATE DEHYDROGENASE 666 IU/L (313-618)
[2016-12-13] MEDS: INSULIN LISPRO 100 UNIT/ML SC SCH ×2 (07:57→13:19)
[2016-12-13] MEDS: metFORMIN HCL 850 MG TAB PO SCH (09:31)
[2016-12-13] MEDS: PARoxetine HCL 20 MG TAB PO SCH (09:32)
[2016-12-13] MEDS: predniSONE 20 MG TAB PO SCH (09:32)
[2016-12-13] MEDS: PANTOPRAZOLE SODIUM 40 MG TAB PO SCH (09:32)
[2016-12-13] MEDS: ENOXAPARIN 100 MG/ML SYR SC SCH (09:32)
[2016-12-13] MEDS: niCARdipine 20 MG CAP PO SCH (09:32)
--- NOTE | 2016-12-13 10:06 | WOCRNPDOC ---
[facility] Advanced Assessment Note - Skin Integrity Problem, Advanced Assess Right Posterior Lateral Hand Dressing Type: Non-Bordered Foam Dressing Description: Clean/Dry, Intact Exudate Amount: Scant Exudate Characteristic(s): Serosanguinous Integumentary Issue Intervention: Dressing Changed Linda Wound Tissue: Erythema (minimal) Linda Wound Swelling: None Wound Bed Color: [place], Yellow Wound Bed Constitution: Granulation Tissue (10%), Smooth Tissue (90%) Site Odor: None Site Measurement - Head-to-Toe Length X Width X Depth (cm): No change Skin Integrity Problem Comment: Soaked with Vashe cleanser. Hydrofera blue ready had slipped onto intact skin and in it's stead was some AMD non bordered foam had been placed in it's stead over the wound. This was adhered and wound bed is now covered with a thin film of slough. Puracyn wound gel to wound bed. Covered with hydrofera blue ready and wrapped with pauline. Brochure for outpatient clinic given to patient. in room for care. Bilateral Toe Dressing Type: Open to Air Wound Bed Constitution: Intact Serous Filled Blister (over dorsum of L foot toes and Right 1st through 3rd toes. ) Extremity Temperature: Warm Right Posterior Medial Hand Dressing Type: Open to Air Skin Integrity Problem Comment: Mostly closed. Tiny open area may be dressed with bandaid. Right Second Toe Wound Bed Color: Black (tip) Wound Bed Constitution: Stable Eschar (tip) Skin Integrity Problem Comment: unchanged since last week. Continue to paint dry gangrene with betadine. Left Dorsal First Toe Blister Dressing Type: Non-Bordered Foam Exudate Amount: Scant Exudate Characteristic(s): Serosanguinous Integumentary Issue Intervention: Dressing Changed Wound Bed Constitution: De-roofed Serous Blister Skin Integrity Problem Comment: Flap macerated and wet. Foam soaked. Switched to AMD foam after soaking in Vashe. Secured with pauline.
[2016-12-13] MEDS: ACETAMINOPHEN 325 MG TAB PO PRN (10:16)
[2016-12-13 11:46] VITALS: BP 156/92; PULSE 62; RESP 18; TEMP 98.2; O2SAT 96
--- NOTE | 2016-12-13 13:38 | PDIAF ---
- Diagnosis Diagnosis: vasculitis Code Status: Full Code - Medication Management Discharge Medications: Medications to Continue on Transfer Gabapentin [Neurontin 300 MG (*)] 600 mg PO HS 04/30/15 [Last Taken 12/04/16] PARoxetine HCL [Paxil] 40 mg PO DAILY 04/30/15 [Last Taken 12/04/16 08:00] clonazePAM [klonoPIN (*)] 2 mg PO DAILY@17 04/30/15 [Last Taken 12/04/16 17:00] Esomeprazole Magnesium 80 mg PO DAILY 08/26/16 [Last Taken 12/04/16 08:00] Ranitidine HCl 150 mg PO BID PRN 08/26/16 [Last Taken 12/04/16 21:00] traZODone [traZODONE 50MG (*)] 50 - 150 mg PO HS 08/26/16 [Last Taken 12/04/16 21:00] Methocarbamol [Robaxin 500 mg (*)] 500 mg PO HS 12/05/16 [Last Taken 12/04/16 21 :00] clonazePAM [klonoPIN (*)] 3 mg PO HS 12/05/16 [Last Taken 12/04/16 21:00] diphenhydrAMINE [Benadryl 25 MG (*)] 200 mg PO DAILY 12/05/16 [Last Taken 08:00] metFORMIN HCL [Glucophage 850 mg (*)] 850 mg PO BIDMEAL #60 tab 12/13/16 [Last Taken Unknown] oxyCODONE HCL/ACETAMINOPHEN [Percocet 7.5-325 mg Tablet] 1 each PO Q4 PRN #40 tablet 12/13/16 [Last Taken Unknown] predniSONE 60 mg PO DAILY #30 tablet 12/13/16 [Last Taken Unknown] Discharge Medications: Refer to the Discharge Home Medication list for PRN reason. - Orders Services needed: Home Care, Registered Nurse Home Care Face to Face: I certify that this patient was under my care and that I had the required [id number] encounter meeting the encounter requirements on the discharge day. My findings support the fact that the patient is homebound as defined in CMS Chapter 7 Medicare Benefits Manual 30.1.1, The condition of the patient is such that there exists a normal inability to leave home and consequently, leaving home would require a considerable and taxing effort. Wound Care Instructions: Right second toe: [place] tip with betadine BID. Blistered toes: Daily change: Remove old dressing. Clean gently with normal saline or wound cleanser. Weave mepilex transfer through toes and over blisters. Change dressings to right 2nd knuckle every MWF days and prn. 1. Clean with ns and gauze. 2. Skin prep shannon wound. 3. Puracyn gel to wound bed (in patient's wound care supplies). 4. Cover with Hydrofera Blue Ready (in patient's supplies), writing side facing up and foam side down toward the wound bed. Secure with steri strips. 5. Secure w/ Paulina and stretch net. - Follow Up Care Current Providers and Referrals: NONE *PRIMARY CARE P,. [Unknown] - As per Instructions Kiran Mcpherson MD [Medical Doctor] - 3-5 days
--- NOTE | 2016-12-13 20:01 | GDS ---
DISCHARGE DIAGNOSES: 1. 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 2. Hyperglycemia, due to steroids. 3. Mild thrombocytopenia, resolved. 4. Elevated liver function tests. 5. Depression. 6. Recent right hand infection. HISTORY: This is a 56-year-old male, who had a right hand infection that was I and D about a week a go. He was given clindamycin. He then developed black spots on fingers and toes. HOSPITAL COURSE: Patient was admitted. He had an angiogram, which did not show obvious vasculitis findings. He had a consultation by Rheumatology, who thought it most likely could be vasculitis. T here were no emboli noted on angiogram. He was treated with steroids, as well as anticoagulation. Over the last week, his toes have improved. I discussed the case with Rheumatology today, who does not want him on anticoagulation but will continue prednisone. They will follow closely, along with getting home wound care and going to the [facility]. He will be discharged on 60 mg of predn isone. He will also start on metformin as he has had steroid-induced hyperglycemia. DISPOSITION: Home. DISCHARGE MEDICATIONS: He will continue his home medicines and in addition, be given prednisone, as well as metformin. FOLLOWUP INSTRUCTIONS: He is to follow up with Dr. Mcpherson this week, as well as with Wound Care Cl deborah this week. TIME SPENT: Greater than 30 minutes were spent on discharge. /[id number]/MODL
[2016-12-14 13:59] LABS: DILUTE RUSSELLS VIPER VENOM 0.9 ratio (0.0 - 1.1); INR 1.2; INTERPRETATION See Comments; PT 13.1 sec; PTT 71 sec (26 - 36)
== END 2016-12-13 14:54 | disposition home health service (06) | DRG 517 ==
LOC: F2N 17:38 → F3N 12-09 10:33
PROVIDERS: ADMIT Student in an Organized Health Care Education/Training Program; ATTEND Student in an Organized Health Care Education/Training Program
PROC: 03BT3ZX Excision of Left Temporal Artery, Percutaneous Approach, Diagnostic (ICD-10-PCS; principal; 2016-12-05)
PROC: 0HBHXZX Excision of Right Upper Leg Skin, External Approach, Diagnostic (ICD-10-PCS; principal; 2016-12-05)
DX: I77.6 Arteritis, unspecified (principal); N50.819 Testicular pain, unspecified; R73.9 Hyperglycemia, unspecified; D69.6 Thrombocytopenia, unspecified; R94.5 Abnormal results of liver function studies; F32.9 Major depressive disorder, single episode, unspecified; Z72.0 Tobacco use; Z23 Encounter for immunization; Z86.14 Personal history of Methicillin resistant Staphylococcus aureus infection; Z80.3 Family history of malignant neoplasm of breast
CPT/HCPCS: 81439-90; 82595-90; 82784-90; 83516-90; 83520-90; 85060-90; 85520-90; 85635-90; 85670-90; 86147-90; 86161; 86161-90; 88184-90; 88185-91; 96374; 97161-GP; A9585; C1760; C1769; C1892; G0009; G0480; J0692; J1170; J1644; J1650; J1815; J2250; J2310; J2440; J3010; J3370; Q9967

== ENCOUNTER 2016-12-17 10:08 | Inpatient (IN) | payer OTHER ==
[2016-12-17] MEDS ORDERED: NALOXONE HCL 0.4 MG/ML INJ ONE (13:24)
[2016-12-17] MEDS ORDERED: NALOXONE HCL 0.4 MG/ML INJ IVP ONE (13:30)
[2016-12-17 13:34] LABS: ABSOLUTE NRBC COUNT 0.07 10^3/uL (0-0.01); ADD DIFF? YES; ADD MORPH? NO; ATYPICAL LYMPHOCYTE FLAG 0 (0-99); FRAGMENT RBC FLAG 0 (0-99); HEMATOCRIT 41.4 % (40.0-51.0); HEMOGLOBIN 13.5 g/dL (13.7-17.5); LEFT SHIFT FLG 30 (0-99); LIPEMIA HEMOLYSIS FLAG 80 (0-99); MEAN CELL HEMOGLOBIN 32.6 pg (27.9-34.1); MEAN CELL HEMOGLOBIN CONCENTR. 32.6 g/dL (32.4-36.7); MEAN PLATELET VOLUME 10.3 fL (8.7-11.7); NRBC-AUTO% 0.2 % (0.0-0.2); PLATELET CLUMPS FLAG 0 (0-99); PLATELET COUNT 523 10^3/uL (150-400); RED BLOOD CELL COUNT 4.14 10^6/uL (4.40-6.38)
[2016-12-17 13:42] LABS: ALBUMIN 3.5 g/dL (3.5-5.0); ALKALINE PHOSPHATASE 124 IU/L (38-126); ANION GAP 15 mEq/L (8-16); BILIRUBIN,TOTAL 0.8 mg/dL (0.1-1.4); BILIRUBIN-CONJUGATED 0.7 mg/dL (0.0-0.5); BILIRUBIN-UNCONJUGATED 0.1 mg/dL (0.0-1.1); CALCIUM 7.7 mg/dL (8.5-10.4); CARBON DIOXIDE 23 mEq/l (22-31); CHLORIDE 94 mEq/L (97-110); ETHANOL SERUM < 10 mg/dL (0-10); GLOMERULAR FILTRATION RATE 22; GLUCOSE 153 mg/dL (70-100); SALICYLATE < 1.0 mg/dL (2.0-20.0); SODIUM 132 mEq/L (134-144)
[2016-12-17 13:55] LABS: POLYCHROMASIA 1+
[2016-12-17 13:56] LABS: LARGE PLATELETS PRESENT; PLATELET ESTIMATE INCREASED (ADEQ)
[2016-12-17 14:01] LABS: POTASSIUM 6.5 mEq/L (3.5-5.2)
[2016-12-17 14:07] LABS: ALANINE AMINOTRANSFERASE 2336 IU/L (21-72); ASPARTATE AMINOTRANSFERASE 3035 IU/L (17-59)
--- NOTE | 2016-12-17 14:09 | CPEKG ---
Heart Rate: 103 RR Interval: 583 P-R Interval: 136 QRSD Interval: 90 QT Interval: 332 QTC Interval: 435 P Garrison: 50 QRS Garrison: -14 T Wave Garrison: 23 EKG Severity - OTHERWISE NORMAL ECG - EKG Impression: SINUS TACHYCARDIA Electronically Signed By: Agustin Cooley 23-Dec-2016 16:35:18
[2016-12-17] MEDS ORDERED: NS 1,000 ML IV ONE (14:27)
[2016-12-17] MEDS ORDERED: ACETYLCYSTEINE IV PROTOCOL 1 EACH MISC SCH ×2 (14:30→17:00)
[2016-12-17] MEDS ORDERED: D5W IV ONE ×3 (14:30)
[2016-12-17] MEDS ORDERED: ACETYLCYSTEINE IV ONE ×3 (14:30)
[2016-12-17] MEDS ORDERED: SODIUM BICARBONATE 50 MEQ/50 ML SYR IVP ONE (14:38)
[2016-12-17] MEDS ORDERED: SODIUM POLY SULF 15 GM/60 ML BOTTLE PO ONE (14:38)
[2016-12-17] MEDS ORDERED: INSULIN REGULAR HUMAN 100 UNIT/ML SC ONE (15:01)
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
[2016-12-17 15:56] LABS: CK-MB INTERPRETATION NEGATIVE (NEGATIVE)
[2016-12-17] MEDS ORDERED: NS 2,000 ML IV ONE (16:25)
[2016-12-17 16:48] LABS: BASE EXCESS -2.4 mEq/L (-2.5-2.5); BICARBONATE 26 mEq/L (22-26); MEASURED OXYGEN SATURATION 98 % (92-95); PCO2 63 mmHg (34-38); PO2 131 mmHg (65-75); TCO2 28 mEq/L (23-27)
[2016-12-17] MEDS ORDERED: LIDOCAINE 2% JELLY 20 ML (UROJECT) ONE (16:48)
[2016-12-17 16:49] LABS: O2 CONCENTRATIION 100 % (0-100); P/F RATIO 131 RATIO
[2016-12-17] MEDS ORDERED: ONDANSETRON 4 MG/2 ML VIAL IVP PRN (16:54)
[2016-12-17] MEDS ORDERED: ONDANSETRON DISINTEGRATING 4 MG TAB PO PRN (16:54)
[2016-12-17] MEDS ORDERED: ACETAMINOPHEN 325 MG TAB PO PRN (16:54)
[2016-12-17 17:01] LABS: COLOR YELLOW; LEUKOCYTE ESTERASE,URINE NEGATIVE (NEGATIVE); NITRITE,URINE NEGATIVE (NEGATIVE)
[2016-12-17] MEDS ORDERED: D50W 25 GM/50 ML SYR IVP PRN (17:01)
[2016-12-17] MEDS ORDERED: NALOXONE HCL 0.4 MG/ML INJ IVP PRN (17:01)
[2016-12-17 17:13] LABS: BACTERIA TRACE /hpf (NONE SEEN); MUCUS TRACE /lpf (NONE-1+)
[2016-12-17] MEDS ORDERED: LIDOCAINE 2% JELLY 5 ML TUBE ONE (17:28)
[2016-12-17] MEDS ORDERED: LIDOCAINE 2% VISCOUS 15 ML UDCUP ONE (17:28)
[2016-12-17] MEDS: ERTAPENEM 0.5 GM in NS 50 ML IV SCH (17:57)
--- NOTE | 2016-12-17 18:02 | GHP ---
[f rep st] HISTORY AND PHYSICAL DATE OF ADMISSION: 12/17/2016 CHIEF COMPLAINT: Altered mental status. HISTORY OF PRESENT ILLNESS: This is a 56-year-old male who is well known to me. He was just discha rged 5 days ago. He presented a couple weeks ago with ischemic toes. Angiograms were negative. Th is was thought to be vasculitis. Rheumatology was consulted and the patient was placed on prednison e and anticoagulation. The case was discussed with Rheumatology on day of discharge and felt that s hould not continue anticoagulation and to continue on prednisone. He was going to have close follow up with both Wound Care and Rheumatology. On day of discharge, his ischemic toes were continuing to improve as well as a wound on his right simon nd. He did repeatedly ask for narcotics although I did not make too much out of that. He says that he was not a drinker and that he would never abuse narcotics as they kept a close eye on him at wor k in terms of drugs. I gave him 40 Percocet at 7.5. Apparently, according to his , patient had gone on a drinking binge the last couple of days. He also fell yesterday. He has been taking higher doses of Percocet last few days as well. He comes in essentially obtunded and is unable to cooperate with the history. With Narcan he does w ann up and talk some but his answers do not make sense or I cannot really understand them. REVIEW OF SYSTEMS: Unable to be obtained secondary to patient's obtundation. PAST MEDICAL HISTORY: 1. Vasculitis as above. 2. Anxiety. 3. Steroid induced hyperglycemia. That is why he was on metformin. 4. GERD. MEDICATIONS: Reviewed. SOCIAL HISTORY: No smoking and last time I talked to him he said he only drank alcohol once every c ouple weeks. 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 FAMILY HISTORY: No history of autoimmune diseases. PHYSICAL EXAM: VITAL SIGNS: Afebrile. Blood pressure is 151/85, heart rate is 107, oxygen saturat ion 94% on 4 L. GENERAL: The patient is obtunded but we did give him some Narcan and he did wake u p and was trying to answer questions but is still nonsensical. HEENT: Pupils were pinpoint initial ly but with Narcan have become a little larger and they are equal and reactive. Extraocular muscles are intact. Dry mucous membranes. NECK: Supple. No thyromegaly. LUNGS: Poor effort. Some rho nchi especially on the right. CARDIOVASCULAR: Slightly tachycardic. No murmurs, rubs, or gallops. ABDOMEN: Positive bowel sounds. Soft, nontender, nondistended. No masses. EXTREMITIES: [place] us upper extremities especially on the left. He has a new hematoma blister type lesion that is abou t a 4 or 5 cm on his palm and he says that he got that when he fell. His right arm had a chronic wo und that does have some good granulation tissue and no evidence of infection. Bilateral toes show s ome increasing black areas in the tips of both great toes and especially the right 2nd toe but I thi nk overall they are looking better. He does have more edema in the lower extremities. NEURO: Obtu nded but responds, then Narcan and answers some questions, moving all 4 extremities equally. LABS: White count is elevated at 34,000 when it was only 13,000 yesterday, platelets are 523, sodiu m 134, potassium is 6.5, creatinine is 3.0. Yesterday it was 1.2. AST is 3000, ALT 2300. These ar e 166 and 164 yesterday. CPK is at 27,000, ammonia elevated at 66. EKG shows normal sinus rhythm with no peaked T-waves. Chest x-ray personally reviewed and interpreted, does not show any obvious pneumonias. X-ray of the left hand is negative for a fracture. CT scan of the head shows no acute bleeds. Cervical spine also shows no acute processes. ASSESSMENT: A 56-year-old male with recent history of vasculitis presenting with probable narcotic overdose, possible acetaminophen overdose, acute renal failure, rhabdomyolysis and severe transamini tis. PLAN: 1. Probable narcotic overdose. Patient is responding to Narcan although I suspect there may be a s uperimposed element of benzodiazepine use as he does usually take Klonopin and he can probably be ta namrata more of that. He does not clear completely with Narcan and that is why I am suspecting this. We will continue to use Narcan p.r.n. 2. Acute renal failure. Patient's creatinine has jumped in the last 24 hours. This could be due t o the rhabdomyolysis. Did discuss the case with Nephrology who will see the patient tomorrow. We w ill give a lot of fluids and if he is not making urine output we will add a little bit of Lasix. I am a little bit worried since he has edema especially in the upper extremities. We will also monito r closely. 3. Hyperkalemia. We are placing an NG tube currently and will give Kayexalate. 4. Elevated liver function tests. This is probably either related to hypotension at some point, as a shock liver or acetaminophen. He will be continued on the Mucomyst protocol in case this is acet aminophen toxicity. 5. Leukocytosis. Will check blood cultures, hold off on antibiotics although I have a low threshol d for starting him on something to cover aspiration pneumonia. 6. Possible aspiration. Patient is somewhat rhonchorous on the right side. At this point, we are probably going to cover with antibiotics. I am going to start Invanz. We will see what his chest x -ray does in the morning especially with IV fluids. 7. Acute hypoxic respiratory failure. Again, possibly aspirated. Will cover with antibiotics for now. 8. Vasculitis, vasculitis with ischemic toes. I will get Wound Care to see him. This ap pears to be improving. Certainly does not seem like he has more ischemia. We will continue prednis one. 9. Left palm hematoma. Will get Wound Care to evaluate as well. There is a fairly large blood bli ster there. 10. Upper extremities swelling. Will check ultrasound to rule out DVT. Seems a lot worse on the l eft. 11. Admission. Patient will be admitted under full admission status. 60 minutes of critical care time has been spent with this patient. /[id number]/MODL
[2016-12-17] MEDS ORDERED: FLUMAZENIL 0.5 MG/5 ML MDV IVP ONE ×2 (18:07→18:22)
[2016-12-17] MEDS ORDERED: NALOXONE HCL 2 MG in D5W 500 ML IV SCH (19:00)
[2016-12-17 19:21] LABS: PHENCYCLIDINE URINE BCH < 6 ng/ml (NEGATIVE); PHENCYCLIDINE URINE BCH NEGATIVE (NEGATIVE); TETRAHYDROCANNABINOL URINE < 5 ng/mL (NEGATIVE); TETRAHYDROCANNABINOL URINE NEGATIVE (NEGATIVE)
[2016-12-17] MEDS: INSULIN LISPRO 100 UNIT/ML SC SCH ×2 (19:28→23:51)
[2016-12-17 19:54] LABS: BASE EXCESS -2.6 mEq/L (-2.5-2.5); BICARBONATE 24 mEq/L (22-26); MEASURED OXYGEN SATURATION 94 % (92-95); PCO2 52 mmHg (34-38); PO2 79 mmHg (65-75); TCO2 26 mEq/L (23-27)
[2016-12-17 20:27] LABS: ANION GAP 9 mEq/L (8-16); CARBON DIOXIDE 25 mEq/l (22-31); CHLORIDE 94 mEq/L (97-110); CREATININE 2.6 mg/dL (0.7-1.3); GLOMERULAR FILTRATION RATE 26; GLUCOSE 176 mg/dL (70-100); POTASSIUM 5.4 mEq/L (3.5-5.2); SODIUM 128 mEq/L (134-144)
[2016-12-17 20:54] LABS: CALCIUM 6.2 mg/dL (8.5-10.4)
[2016-12-17] MEDS: NS 1,000 ML IV SCH (21:23)
[2016-12-17] MEDS: HEPARIN 5,000 UNIT/0.5 ML SYR SC SCH (21:23)
[2016-12-18] MEDS: NS 1,000 ML IV SCH ×2 (01:30→05:45)
[2016-12-18 03:56] LABS: % IMMATURE GRANULYOCYTES 0.9 % (0.0-1.1); ABSOLUTE IMMATURE GRANULOCYTES 0.23 10^3/uL (0.00-0.10); ABSOLUTE NRBC COUNT 0.02 10^3/uL (0-0.01); ADD DIFF? NO; ADD MORPH? NO; ADD SCAN? NO; ATYPICAL LYMPHOCYTE FLAG 0 (0-99); FRAGMENT RBC FLAG 0 (0-99); HEMOGLOBIN 11.3 g/dL (13.7-17.5); LEFT SHIFT FLG 30 (0-99); LIPEMIA HEMOLYSIS FLAG 90 (0-99); MEAN CELL HEMOGLOBIN 32.8 pg (27.9-34.1); MEAN CELL HEMOGLOBIN CONCENTR. 34.2 g/dL (32.4-36.7); MEAN CELL VOLUME 95.7 fL (81.5-99.8); MEAN PLATELET VOLUME 9.9 fL (8.7-11.7); NRBC-AUTO% 0.1 % (0.0-0.2); PLATELET CLUMPS FLAG 20 (0-99); PLATELET COUNT 276 10^3/uL (150-400); RED BLOOD CELL COUNT 3.45 10^6/uL (4.40-6.38); RED CELL DISTRIBUTION WIDTH 14.6 % (11.5-15.2)
[2016-12-18 04:00] LABS: ALBUMIN 2.5 g/dL (3.5-5.0); ALKALINE PHOSPHATASE 95 IU/L (38-126); ANION GAP 11 mEq/L (8-16); BILIRUBIN,TOTAL 0.6 mg/dL (0.1-1.4); CALCIUM 6.1 mg/dL (8.5-10.4); CARBON DIOXIDE 24 mEq/l (22-31); CHLORIDE 99 mEq/L (97-110); CREATININE 2.2 mg/dL (0.7-1.3); GLOMERULAR FILTRATION RATE 31; GLUCOSE 120 mg/dL (70-100); POTASSIUM 4.3 mEq/L (3.5-5.2); SODIUM 134 mEq/L (134-144); TOTAL PROTEIN 4.8 g/dL (6.3-8.2)
[2016-12-18 04:04] LABS: INR 1.65 (0.83-1.16); PROTIME(PATIENT) 19.6 SEC (12.0-15.0)
[2016-12-18 04:19] LABS: ALANINE AMINOTRANSFERASE 1442 IU/L (21-72); ASPARTATE AMINOTRANSFERASE 1434 IU/L (17-59)
[2016-12-18 05:03] LABS: CK-MB INTERPRETATION NEGATIVE (NEGATIVE)
[2016-12-18] MEDS: HEPARIN 5,000 UNIT/0.5 ML SYR SC SCH ×3 (05:49→21:41)
[2016-12-18 06:14] LABS: BASE EXCESS -0.6 mEq/L (-2.5-2.5); BICARBONATE 24 mEq/L (22-26); MEASURED OXYGEN SATURATION 93 % (92-95); PCO2 41 mmHg (34-38); PO2 76 mmHg (65-75); TCO2 25 mEq/L (23-27)
[2016-12-18] MEDS ORDERED: SODIUM BICARBONATE 75 MEQ in 1/2 NS 1,000 ML IV SCH (11:30)
[2016-12-18] MEDS: SODIUM BICARBONATE 75 MEQ in 1/2 NS 1,000 ML IV SCH ×3 (11:58→21:41)
[2016-12-18] MEDS: INSULIN LISPRO 100 UNIT/ML SC SCH ×2 (12:08→18:21)
--- NOTE | 2016-12-18 12:09 | GCON ---
[f rep st] CONSULTATION RENAL CONSULTATION DATE OF CONSULTATION: 12/18/2016 REFERRING PHYSICIAN: Danii Lim MD REASON FOR CONSULT: Acute kidney injury and hyperkalemia. HISTORY OF PRESENT ILLNESS: The patient is a 56-year-old man with history of vasculitis who had a r ecent admission for workup including biopsy of ischemic toes, who was discharged home and returned w ith altered mental status, rhabdo, acute kidney injury and hyperkalemia. He was discharged on December 13 with pain control for his ischemic toes. During this interval, he had several falls and his wi fe brought him back to the hospital after she found him down at home. She is not sure exactly how l vega he was down for. Upon admission, he was found to have rhabdomyolysis with a creatinine kinase l evel of 27,265. He also had hyperkalemia with a level of 6.5 and acute kidney injury with a creatin ine of 3.0. His previous creatinine was 1.2 on December 16 and 0.6 on December 11. He also had mild hy ponatremia with a level of 132. He was given IV fluids, sodium bicarbonate, insulin, glucose and Ka yexalate. His repeat potassium improved to 6.1 and has further improved to 4.3 today. He was start ed on vigorous IV fluid administration with normal saline at 250 mL per hour. His creatinine has im proved down to 2.2 today. His CK levels are also trending down to 25,608. The patient was examined while lying in the bed today and history was also obtained from his at bedside. He denies any intentional overdose of his pain medications. His thinks he may have been confused about them. The report from the hospitalist suggests that the patient was binge drink ing, but the patient and deny this. They report he just drinks a drink or two here or there, b ut is not a heavy abuser of alcohol. Currently, the patient reports feeling well. He denies any fe vers, chills, headache, chest pain, shortness of breath, nausea, vomiting, abdominal pain, urinary c omplaint, lower extremity edema or skin rash other than his ischemic toes. PAST MEDICAL HISTORY: 1. Vasculitis with ischemic toes. 2. Anxiety. 3. Steroid-induced diabetes. 4. GERD. MEDICATIONS: See attached listed in chart. ALLERGIES: Cephalexin. SOCIAL HISTORY: The patient is . He denies tobacco abuse. He drinks a couple of drinks a f ew times a month, but denies heavy alcohol abuse. FAMILY HISTORY: Denies any known renal disease. REVIEW OF SYMPTOMS: Twelve systems reviewed and negative except as per HPI. PHYSICAL EXAMINATION: VITAL SIGNS: Temperature 37.2, pulse 110, respirations 21, blood pressure 15 4/83. INs and OUTs since admit 7491 in and 2975 out. Weight 92.99 kg. GENERAL: The patient is aw ann, but he is lethargic. He is oriented to self, but not to place. HEENT: Extraocular muscles in tact. Pupils reactive. NECK: Supple. No JVD. PULMONARY: Clear to auscultation bilaterally. CV : Mild bradycardia. Regular rhythm. No murmurs, rubs or gallops. ABDOMEN: Soft, nontender. : Cesar in place. Draining dark yellow urine. EXTREMITIES: Trace dependent edema. Circulation an d distal pulses intact 2+. No apparent evidence of any compartment syndrome. LABS: Sodium 134, potassium 4.3, chloride 99, bicarb 24, BUN 40, creatinine 2.2, glucose 120, calci um 6.1. AST 1434 down from 3035, ALT 1442. CK 25,608. White count 25.39, hemoglobin 11.3, platele ts 276. Urinalysis: pH 5.0, specific gravity 1.016, protein 1+, blood 3+, RBCs 1-3, WBCs 5-10. Po sitive hyaline casts, positive granular casts. IMAGING: Abdominal ultrasound shows kidneys are unremarkable with no evidence of hydronephrosis. ASSESSMENT AND PLAN: 1. Acute kidney injury. The patient has early onset of ATN due to rhabdomyolysis with elevated cre atinine that has been responding to supportive care. He should continue high rate IV fluids to help stimulate a urine output rate of 200-250 mL per hour. As he currently is making excellent urine ou tput and creatinine and CK levels are falling, there is no indication for hemodialysis. He will con tinue to receive supportive care. At this time, he is on normal saline and IV fluids, which I recom mend changing to half normal plus half bicarb in order to help alkalize the urine and further promot e solubility and excretion of myoglobin, which should help prevent nephrotoxicity. He will continue to be followed closely by monitoring his vitals, urine output and lab parameters, but does not seem to need dialysis at this time. 2. Hyperkalemia due to acute kidney injury. He has responded well to initial supportive care and c urrently his potassium is normal. As above, supportive measures will be continued and it does not a ppear that he would need hemodialysis. 3. Hyponatremia. Likely hypovolemic hyponatremia due to poor intake due to his altered mental stat us prior to admission. This has improved with IV fluids. 4. Altered mental status likely due to copious use of narcotics for his foot pain. He is on a nalo xone drip and receiving supportive care for this. He had elevated levels of acetaminophen on admiss ion which is also likely due to Percocet use. These should resolve with supportive care. It would be unlikely that his renal function would contribute to altered mental status, especially as it is i mproving. 5. Rhabdomyolysis likely due to his obtundation prior to admission. This is improving with support rashel care, which will be continued as above. Thank you for the consult. We will follow with you. /[id number]/MODL
--- NOTE | 2016-12-18 13:38 | HOSPPROG ---
Hospitalist Progress Note Assessment/Plan: 56 yo M e recently diagnosed vasculitis admitted w obtundation, TODD and rhabdomyolysis rhabdo: continue IVF ck trending down etiology is being down for undisclosed period of time, likely overnight TODD: ATN from rhabdo +/- prerenal cr normal during last admit so no clear vasculitic component to TODD contine IVF appreciate renal input ?tylenol toxicity: completing course of NAc not one discrete ingestion but ongoing transaminitis: shock liver vs tylenol toxicity vs both complete NAc hemodynamics improved vasculitis: exact diagnosis remains uncertain continue steroids ? aspiration: small RLL infiltrate on ertapenem certainly this clinical scenario puts him at risk for aspiration proph: sc heparin dispo :icu Subjective: dysarthric but alert. case d/w dr martínez. cxr w minimal to no rll infiltrate (interp by me) Objective: Vital Signs Temp Pulse Resp BP Pulse Ox 37.0 C 111 H 24 H 139/82 H 96 12/18/16 12:00 12/18/16 13:00 12/18/16 13:00 12/18/16 13:00 12/18/16 13:00 Laboratory Results 12/18/16 03:43 12/18/16 03:43 12/17/16 12/18/16 12/19/16 05:59 05:59 06:59 Intake Total 7491 Output Total 2975 Balance 4516 PT 19.6 SEC (12.0-15.0) H 12/18/16 03:43 INR 1.65 (0.83-1.16) H 12/18/16 03:43 - Physical Exam Constitutional: no apparent distress, appears nourished, other (lethargic) Eyes: PERRL, anicteric sclera Ears, Nose, Mouth, Throat: moist mucous membranes, hearing normal Cardiovascular: no murmur, rub, or gallop, tachycardia Respiratory: no respiratory distress, no rales or rhonchi Gastrointestinal: normoactive bowel sounds, soft, non-tender abdomen Genitourinary: rodrigez in urethra Skin: warm, normal color Musculoskeletal: full muscle strength, no muscle tenderness, other (L forearm edematous, firm but L fingers and forearm w good cap refill) Neurologic: sensation intact bilaterally, No AAOx3 Psychiatric: interacting appropriately Lymph, Heme, Immunologic: no cervical LAD ICD10 Worksheet Patient Problems: Problems Problem Status Onset Hyperkalemia Acute Renal failure Acute Tylenol overdose Acute Ischemic toe Acute Skin lesion Acute
[2016-12-18] MEDS: predniSONE 20 MG TAB PO SCH (14:43)
[2016-12-18] MEDS: ERTAPENEM 0.5 GM in NS 50 ML IV SCH (16:54)
[2016-12-18] MEDS: LORazepam 2 MG/ML INJ IVP PRN ×2 (18:01→21:41)
[2016-12-18] MEDS ORDERED: ALTEPLASE 2 MG VIAL IVP PRN (18:16)
--- NOTE | 2016-12-18 18:34 | GCON ---
[f rep st] CONSULTATION PULMONARY CRITICAL CARE CONSULTATION. REASON FOR CONSULTATION: Intensive care unit evaluation and management of multiple medical problems including aspiration, abnormal mental status, and rhabdomyolysis. HISTORY: The patient was admitted yesterday with altered mental status. He was found down by his in the morning. She does not know how long he was down for but it could have been most of the night. He apparently had been falling. He was recently in the hospital with ischemic toes secondary to vasculitis. He has been seen by Rheumatology, but the exact diagnosis apparently is unknown regarding the cause of his vasculitis. He had been taking significant amounts of Percocet and did respond to Narcan in the emergency department. He was subsequently placed on a Narcan drip in the intensive care unit with improvement in obtundation but he has remained confused and somewhat agitated. Other findings on admission included rhabdomyolysis with a total CPK level of over 27,000, hyperkalemia and acute renal insufficiency. He was given intravenous fluids, placed on a sodium bicarbonate drip, treated for his hyperkalemia, and supported in the intensive care unit. When he was found, he was lying on his left side. He did have some swelling on the left side of his face. He is responsive but confused at this point. He does complain of pain related to his ischemic toes. He does complain of some chest congestion. He did aspirate blood on admission secondary to traumatic attempts at placing an NG tube. He was initially quite somnolent with sonorous respirations and a respiratory acidosis; however, this resolved with Narcan and the placement of a deep nasal trumpet yesterday. PAST MEDICAL HISTORY: Remarkable for the vasculitis diagnosis. He was on tapering prednisone, apparently 60 mg per day. He also has a history of type 2 diabetes, depression, anxiety, gastroesophageal reflux disease. DRUG ALLERGIES: Cephalexin. SOCIAL HISTORY: The patient is . He has not smoked cigarettes. He drinks alcohol several days per week, apparently not every day. Blood alcohol level on admission was less than 10. FAMILY HISTORY: Negative for collagen vascular disease or vasculitis. REVIEW OF SYSTEMS: A 10-point review of systems is basically negative; however , this is somewhat difficult to assess. He denies known heart disease or lung disease, thromboembolic disease, previous renal disease, etc. PHYSICAL EXAMINATION: Reveals a gentleman who is clearly confused, talking about needing to go grocery shopping. Blood pressure is 150/80, heart rate 110 with sinus rhythm on the monitor. He is on 5 L, saturations are 98%. Respiratory rate is 22. He is afebrile. HEENT: Remarkable for left-sided facial swelling. There is also a recent small laceration above his left ear that is clotted. Pupils appear equal. Mucous membranes are somewhat dry. No cranial nerve deficits are noted. NECK: Relatively large without lymphadenopathy or thyromegaly. There is no obvious jugular venous distention. PULMONARY: The chest reveals decreased breath sounds at the bases. There is some scattered congestion/coarse breath sounds without greg rhonchi or wheezes. A few nonspecific rales are present at the bases. HEART: Tachycardic. There is a soft systolic murmur. P2 appears normal. There is no gallop. ABDOMEN: Somewhat overweight, soft and nontender. Bowel sounds are present but somewhat diminished. EXTREMITIES: Remarkable for 1+ edema bilaterally. The toes are dressed and are ischemic on both feet. Distal pulses are present. NEUROLOGIC: Nonfocal. He moves all extremities equally and reports equal sensation. He is oriented x2, knows who he is and that he is in the hospital. Chest x-ray: There are infiltrates noted bilaterally and involve the right upper lobe, right lower lung zone, and mid left chest. Venous Doppler ultrasound of the left lower extremity was negative. Abdominal ultrasound was done and is unremarkable. CT scan of the head and spine were unremarkable for acute findings. Some degenerative disease and periventricular small-vessel white matter change was noted. LABORATORY: White blood cell count is 25,300, down from 34,000 on admission. Hematocrit is 33, down from 41 on admission. Platelets are 276,000. INR is 1.65. Arterial blood gas: 7.38, pCO2 of 41 and pO2 of 76 on 5 L of oxygen. Sodium is 134, potassium 4.3, BUN 40 with a creatinine of 2.2, down from 46 and 3.0. AST 1434 with an ALT of 1442. Repeat CPK is 25,600. Albumin is 2.5. Acetaminophen level is less than 10, down from 23 on admission. Serologies are pending. ASSESSMENT: 1. Found down: Likely secondary to inadvertent drug overdose with Percocet and possibly benzodiazepines involved. He did have resultant significant rhabdomyolysis on admission, and is being treated for this. This implies that his down time was prolonged. In addition, he has some swelling of his left face and associated small laceration. Mental status is significantly improved with the use of Narcan. 2. Rhabdomyolysis. Secondary to being down on his left side. This is associated with a degree of renal failure. He is on intravenous fluids and intravenous bicarbonate, and is improving. 3. History of vasculitis. He is on steroids. This is associated with ischemic toes. He was recently discharged from [facility] and will continue to need aggressive evaluation and support. 4. History of depression and anxiety. 5. Possible Tylenol overdose. This seems unlikely. His acetaminophen level was normal on admission, and is now less than 10. He was treated with acetylcysteine, but this has now been discontinued. 6. Aspiration, possible aspiration pneumonia. His clinical course and chest x- rays are certainly suggestive. He is being treated with ertapenem. Bronchodilator therapy will be initiated. 7. Elevated liver function studies. Possibly secondary to shock liver. Doubt Tylenol toxicity. 8. Deep vein thrombosis prophylaxis: Subcutaneous heparin. 9. Gastrointestinal prophylaxis: None currently. Will initiate. 10. Aspiration risk. Swallow evaluation will be needed. 11. Agitation/confusion. I think this is primarily secondary to his prolonged down time and effects of medications. Precedex may be of benefit in controlling his agitation and helping with comfort. He does drink alcohol and a component of alcohol withdrawal may be playing a role? The Precedex will be useful for this as well. 12. History of alcohol use. He is at some risk for withdrawal; however, his symptoms may be secondary to other issues as outlined above. PLAN AND RECOMMENDATIONS: The patient will be kept in the intensive care unit. Intravenous fluids and intravenous bicarbonate will be given. Antibiotics will be continued. Bronchodilator therapy will be added. Pantoprazole will be given. Laboratory and chest x-ray will be followed. Prednisone will be continued at 60 mg per day. Further plans and recommendations will be made based on his progress over the next 12-24 hours. /[id number]/MODL MTDD
[2016-12-18] MEDS ORDERED: LORazepam 2 MG/ML INJ IVP ONE (19:00)
[2016-12-18] MEDS: DEXMEDETOMIDINE HCL 400 MCG in NS 100 ML IV SCH ×2 (20:00→22:38)
[2016-12-19] MEDS ORDERED: FUROSEMIDE 20 MG/2 ML VIAL IVP ONE ×2 (00:39→16:00)
[2016-12-19 00:55] LABS: BASE EXCESS 3.6 mEq/L (-2.5-2.5); BICARBONATE 27 mEq/L (22-26); MEASURED OXYGEN SATURATION 94 % (92-95); PCO2 38 mmHg (34-38); PO2 74 mmHg (65-75); TCO2 28 mEq/L (23-27)
[2016-12-19] MEDS: LORazepam 2 MG/ML INJ IVP PRN ×12 (01:22→23:12)
[2016-12-19] MEDS: DEXMEDETOMIDINE HCL 400 MCG in NS 100 ML IV SCH ×6 (01:51→22:09)
[2016-12-19] MEDS: SODIUM BICARBONATE 75 MEQ in 1/2 NS 1,000 ML IV SCH ×2 (03:11→09:42)
[2016-12-19 04:09] LABS: ABSOLUTE IMMATURE GRANULOCYTES 0.14 10^3/uL (0.00-0.10); ADD DIFF? NO; ADD MORPH? NO; ADD SCAN? NO; ATYPICAL LYMPHOCYTE FLAG 0 (0-99); FRAGMENT RBC FLAG 0 (0-99); HEMATOCRIT 29.5 % (40.0-51.0); HEMOGLOBIN 9.8 g/dL (13.7-17.5); LEFT SHIFT FLG 10 (0-99); LIPEMIA HEMOLYSIS FLAG 80 (0-99); MEAN CELL HEMOGLOBIN 32.1 pg (27.9-34.1); MEAN CELL HEMOGLOBIN CONCENTR. 33.2 g/dL (32.4-36.7); MEAN CELL VOLUME 96.7 fL (81.5-99.8); MEAN PLATELET VOLUME 10.6 fL (8.7-11.7); PLATELET CLUMPS FLAG 20 (0-99); PLATELET COUNT 151 10^3/uL (150-400); RED BLOOD CELL COUNT 3.05 10^6/uL (4.40-6.38); RED CELL DISTRIBUTION WIDTH 14.8 % (11.5-15.2)
[2016-12-19 04:16] LABS: ANION GAP 5 mEq/L (8-16); CARBON DIOXIDE 30 mEq/l (22-31); CHLORIDE 103 mEq/L (97-110); CREATININE 1.1 mg/dL (0.7-1.3); GLOMERULAR FILTRATION RATE > 60; GLUCOSE 84 mg/dL (70-100); MAGNESIUM 1.7 mg/dL (1.6-2.3); POTASSIUM 3.3 mEq/L (3.5-5.2); SODIUM 138 mEq/L (134-144); URIC ACID 5.8 mg/dL (3.5-8.5)
[2016-12-19 04:19] LABS: CALCIUM 5.4 mg/dL (8.5-10.4)
[2016-12-19] MEDS ORDERED: PROTOCOL CALCIUM 1 DOSE IV PRN (04:30)
[2016-12-19] MEDS ORDERED: PROTOCOL POTASSIUM 1 DOSE MISC PRN (04:30)
[2016-12-19 04:33] LABS: CK-MB INTERPRETATION NEGATIVE (NEGATIVE)
[2016-12-19] MEDS: HEPARIN 5,000 UNIT/0.5 ML SYR SC SCH ×3 (04:58→21:36)
[2016-12-19] MEDS ORDERED: CALCIUM GLUCONATE 2 GM in D5W 50 ML IV ONE (05:00)
[2016-12-19] MEDS: hydrALAZINE 20 MG/ML VIAL IVP PRN ×2 (05:47→16:08)
[2016-12-19] MEDS: POTASSIUM Cl (KCl) 100 ML IV SCH ×3 (05:48→08:02)
[2016-12-19 08:37] LABS: IONIZED CALCIUM 0.95 MMOL/L (1.12-1.30)
[2016-12-19] MEDS ORDERED: PROTOCOL MAGNESIUM 1 DOSE IV PRN (10:12)
[2016-12-19] MEDS ORDERED: PROTOCOL K PHOSPHATE 1 DOSE IV PRN (10:12)
[2016-12-19] MEDS: INSULIN LISPRO 100 UNIT/ML SC SCH ×3 (10:31→18:18)
[2016-12-19] MEDS: predniSONE 20 MG TAB PO SCH (11:45)
[2016-12-19] MEDS ORDERED: K PHOS 10 MMOL in D5W 250 ML IV ONE (12:00)
[2016-12-19] MEDS ORDERED: FUROSEMIDE 40 MG/4 ML VIAL IVP ONE (12:57)
--- NOTE | 2016-12-19 13:00 | HOSPPROG ---
Hospitalist Progress Note Assessment/Plan: 56 yo M e recently diagnosed vasculitis admitted w obtundation, TODD and rhabdomyolysis pulm edema: volume overloaded from resuscitation dc IVF lasix x 1 now rhabdo: ck and cr trending down, rik cr TODD may have been pre renal etiology is being down for undisclosed period of time, likely overnight TODD: ATN from rhabdo +/- prerenal cr normal during last admit so no clear vasculitic component to TODD contine IVF appreciate renal input ?tylenol toxicity: completed course of NAc not one discrete ingestion but ongoing transaminitis: shock liver vs tylenol toxicity vs both complete NAc hemodynamics improved TA's trending down vasculitis: exact diagnosis remains uncertain continue steroids change to IV as not tolerating po's ? aspiration: small RLL infiltrate on ertapenem certainly this clinical scenario puts him at risk for aspiration proph: sc heparin dispo :icu Subjective: cxr from picc line w persistent pulm edema (interp by me). case d/ w dr martínez Objective: Vital Signs Temp Pulse Resp BP Pulse Ox 37.7 C 78 33 H 158/92 H 97 12/19/16 07:00 12/19/16 11:00 12/19/16 11:00 12/19/16 11:00 12/19/16 11:00 Laboratory Results 12/19/16 03:52 12/19/16 03:52 12/18/16 12/19/16 12/20/16 04:59 05:59 05:59 Intake Total Output Total Balance PT 19.6 SEC (12.0-15.0) H 12/18/16 03:43 INR 1.65 (0.83-1.16) H 12/18/16 03:43 - Physical Exam Constitutional: no apparent distress, other (agitated) Eyes: PERRL, anicteric sclera Ears, Nose, Mouth, Throat: moist mucous membranes, hearing normal Cardiovascular: regular rate and rhythym, no murmur, rub, or gallop Respiratory: inspiratory crackles, No no respiratory distress, No no rales or rhonchi Gastrointestinal: normoactive bowel sounds, soft, non-tender abdomen Genitourinary: rodrigez in urethra Skin: warm, normal color Musculoskeletal: full muscle strength, no muscle tenderness Neurologic: No AAOx3 Psychiatric: not anxious, No interacting appropriately ICD10 Worksheet Patient Problems: Problems Problem Status Onset Hyperkalemia Acute Renal failure Acute Tylenol overdose Acute Ischemic toe Acute Skin lesion Acute
--- NOTE | 2016-12-19 14:36 | PDINTPN ---
Casing In Line Feeder Progress Note Assessment/Plan: Assessment: Confusion/obtundation. On Precedex, in restraints. Etiology not totally clear : Medications, withdrawal from alcohol, toxic metabolic issues secondary to significant current problems, other? Pulmonary infiltrates: He has developed more diffuse pulmonary infiltrates. Oxygenation however is not a significant problem. ABG this am OK. Question volume overload/congestive heart failure versus aspiration pneumonitis, verses inflammatory lung disease. Or a combination of these? On ertapenem, bronchodilators. Rhabdomyolysis, secondary to prolonged down time. Total CPK remains elevated. Renal function is now normal. Can stop bicarbonate drip, continue intravenous fluids. Altered mental status: Confusion, agitation. Waxes and wanes. Associated with unsafe swallow at this time. Aspiration risk: Secondary to the above. Will keep patient NPO for now. Vasculitis, steroid therapy. This is associated with digital lower extremity ischemia. Anemia: Secondary to equilibration, IV fluids. No evidence of active bleeding. DVT prophylaxis: On subcu heparin DVT prophylaxis: None. Will start pantoprazole. Metabolic: Hypokalemia, hypophosphatemia. On replacement protocols. History of alcohol abuse: On CIWA protocol. Some of his symptoms may or may not be related to alcohol withdrawal?. Plan: Continue care in the intensive care unit. Continue NPO status. Lasix today. Will repeat blood gas this evening. Consider intubation if deteriorating. Continue Precedex. Decrease IV fluids, stop bicarbonate drip. Continue steroids as is. Follow laboratory, blood gas and chest x-ray. Continue CIWA protocol but difficult to assess regarding alcohol for all alone. 50 minutes of clinic time spent directly with the patient today. Multiple visits. Discussed with the patient's , respiratory, nursing, hospitalist, and ICU multi disciplinary team. Subjective: Confused, disoriented, remains on Precedex Objective: Vital Signs Temp Pulse Resp BP Pulse Ox 37.7 C 78 33 H 158/92 H 97 12/19/16 07:00 12/19/16 11:00 12/19/16 11:00 12/19/16 11:00 12/19/16 11:00 Laboratory Results 12/19/16 03:52 12/19/16 03:52 12/18/16 12/19/16 12/20/16 04:59 05:59 05:59 Intake Total Output Total Balance PT 19.6 SEC (12.0-15.0) H 12/18/16 03:43 INR 1.65 (0.83-1.16) H 12/18/16 03:43 Laboratory Tests 12/19/16 12/19/16 12/19/16 00:45 03:52 08:30 pCO2 38 pO2 74 ABG pH 7.47 H ABG O2 Saturation 94 Total O2 Concentration 7.0 Uric Acid 5.8 Calcium 5.4 L* Ionized Calcium 0.95 L Phosphorus 1.6 L Magnesium 1.7 Creatine Kinase 39407 H CXR: Increasing bilateral pulmonary infiltrates. Physical Exam - Physical Exam General Appearance: mild distress, obese, other (Confused, tachypneic, intermittent cough.) EENT: PERRL/EOMI, other (Nasal cannula at 4 L. Left face less swollen) Neck: normal inspection (Large neck, hard estimated jugular venous dist) Respiratory: decreased breath sounds, No rhonchi (Few centrally with cough) Cardiac/Chest: regular rate, rhythm, other (Distant heart tones) Abdomen: normal bowel sounds, non-tender, soft (Obese) Male Genitalia: other (Cesar catheter in place, excellent urine output) Skin: normal color, warm/dry Extremities: swelling (Generalized), other (Lower extremity digital ischemia present. Feet wrapped.) Neuro/Psych: no motor/sensory deficits (Moves all extremities), cognition abnormalities (Obtunded, moaning, will not respond to simple questions and commands. Will open eyes to stimulation, voice), No alert, No oriented x 3 ICD10 Worksheet Patient Problems: Problems Problem Status Onset Hyperkalemia Acute Renal failure Acute Tylenol overdose Acute Ischemic toe Acute Skin lesion Acute
[2016-12-19] MEDS: methylPREDNISolone SOD SUCC 125 MG/2 ML VIAL IVP SCH (15:20)
[2016-12-19] MEDS ORDERED: MAGNESIUM SULF 1 GM/DEXTROSE 100 ML IV ONE (15:31)
--- NOTE | 2016-12-19 15:33 | WOCRNPDOC ---
SUZANNE Advanced Assessment Note - Skin Integrity Problem, Advanced Assess Left Hand Blister Dressing Type: Gauze, Kerlix Dressing Description: Clean/Dry, Intact Exudate Color: Reddish/Yellow Integumentary Issue Intervention: Dressing Applied (Adaptic Touch, non-bordered foam; pauline wrap.), Dressing Changed (Applied Silvasorb gel; Placed small Allevyn to medial site; bandaid to lateral site.), Dressing Removed (previous: removed Adaptic and Kerlix) Linda Wound Tissue: Intact Wound Bed Color: Purple Wound Bed Constitution: Intact Sanguineous Blister Site Odor: None Site Measurement - Head-to-Toe Length X Width X Depth (cm): 13 x 6.5 x 3.5 cm protruding above surrounding intact skin Skin Integrity Problem Comment: A single large, contiguous, purple blister covers entire palmar surface, extending across webbing between thumb and forefinger. Protected site w/application of Cavilon skin barrier, Adaptic Touch to intact blister surface, non-bordered foam, secured with pualine wrap. ELIE Simon assisting. Bilateral Distal Toes, Eschar Dressing Type: Adaptic, Kerlix Dressing Description: Intact Exudate Amount: Scant Exudate Color: Reddish/Yellow Exudate Characteristic(s): Serosanguinous Integumentary Issue Intervention: Dressing Applied, Dressing Removed (previous: removed Adaptic and Kerlix) Linda Wound Tissue: Macerated Linda Wound Swelling: None Wound Bed Color: Black (eschar), [place] (macerated margins of eschar) Wound Edges: Irregular Site Odor: None Skin Integrity Problem Comment: Eschar at tips of toes, w/some evidence of peeling and maceration where moisture had collected adjacent to eschar underneath dressings. Cleaned using Carraklenz and gauze; Threaded full-length of 4x4 gauze, folded length-yeh, between toes to separate and allow for air flow. Applied Betadine to eschar. Secured 4x4 with pauline, figure 8-wrapped and anchored at ankles. Heel protector boots placed. ELIE Simon assisting. Right Hand Abrasion Dressing Type: Adaptic, Kerlix Dressing Description: Clean/Dry, Intact Exudate Amount: Scant Exudate Color: Reddish/Yellow Exudate Characteristic(s): Serosanguinous Integumentary Issue Intervention: Dressing Applied, Dressing Removed (previous: removed Adaptic and Kerlix) Linda Wound Swelling: Mild Wound Bed Color: Brown, Red Wound Bed Constitution: Smooth Tissue, Scab Site Odor: None Site Measurement - Head-to-Toe Length X Width X Depth (cm): 3.5 x 2.5 x 0.3 @ medial R hand. 1 cm rebecca x 0 (scab) @ lateral R hand Skin Integrity Problem Comment: Removed bulky kerlix and adaptic dressing; Dried , raw appearance at base of medial site, scabbed at lateral site. Cleaned sites using Carraklenz spray and gauze; Applied skin prep to periwound, Silvasorb gel to wound bases. Covered medial w/small Allevyn; lateral w/bandaid. ELIE Simon assisting.
[2016-12-19 17:08] LABS: BASE EXCESS 3.7 mEq/L (-2.5-2.5); BICARBONATE 27 mEq/L (22-26); MEASURED OXYGEN SATURATION 96 % (92-95); PCO2 39 mmHg (34-38); PO2 78 mmHg (65-75); TCO2 29 mEq/L (23-27)
[2016-12-19] MEDS: PANTOPRAZOLE SODIUM 40 MG in NS 100 ML IV SCH (17:08)
--- NOTE | 2016-12-19 17:16 | SOAPPROG ---
SOAP Progress Note Assessment/Plan: Assessment: 1. TODD - -Due to rhabdo -Resolved with IVF 2. Hyperkalemia - -Resolved 3. Rhabdo - -CK still elevated -Would continue high rate IVF to maintain solubility of myoglobin 4. Hypocalcemia - -No need to replace in rhabdo unless symptomatic, will spontaneously resolve as rhabdo resolves 5. AMS - -Lingering effects of narcotics? -Not uremic TODD recovered. We will SIGN OFF. Please call with questions Plan: 12/19/16 17:12 12/19/16 17:15 Subjective: No c/o but more confused/agitated today. On precedex Objective: Vital Signs Temp Pulse Resp BP Pulse Ox 37.4 C 80 17 185/104 H 96 12/19/16 14:00 12/19/16 16:00 12/19/16 16:00 12/19/16 16:08 12/19/16 16:00 Laboratory Results 12/19/16 03:52 12/19/16 03:52 12/18/16 12/19/16 12/20/16 04:59 05:59 05:59 Intake Total Output Total Balance PT 19.6 SEC (12.0-15.0) H 12/18/16 03:43 INR 1.65 (0.83-1.16) H 12/18/16 03:43 Physical Exam - Physical Exam General Appearance: WD/WN, alert, no apparent distress Respiratory: lungs clear Cardiac/Chest: regular rate, rhythm Extremities: other (ischemic toes), No swelling ICD10 Worksheet Patient Problems: Problems Problem Status Onset Hyperkalemia Acute Renal failure Acute Tylenol overdose Acute Ischemic toe Acute Skin lesion Acute
[2016-12-19] MEDS: ERTAPENEM 1 GM in NS 50 ML IV SCH (17:20)
[2016-12-19 19:02] LABS: POTASSIUM 3.6 mEq/L (3.5-5.2)
[2016-12-19] MEDS: POTASSIUM Cl (KCl) 50 ML IV SCH ×3 (20:33→22:10)
[2016-12-20] MEDS: INSULIN LISPRO 100 UNIT/ML SC SCH ×3 (00:22→17:31)
[2016-12-20 00:33] LABS: MAGNESIUM 1.8 mg/dL (1.6-2.3); POTASSIUM 4.3 mEq/L (3.5-5.2)
[2016-12-20] MEDS ORDERED: MAGNESIUM SULF 1 GM/DEXTROSE 100 ML IV ONE (00:35)
[2016-12-20] MEDS: DEXMEDETOMIDINE HCL 400 MCG in NS 100 ML IV SCH ×3 (01:12→08:00)
[2016-12-20] MEDS: hydrALAZINE 20 MG/ML VIAL IVP PRN (04:11)
[2016-12-20] MEDS: HEPARIN 5,000 UNIT/0.5 ML SYR SC SCH ×4 (05:38→21:32)
[2016-12-20 05:45] LABS: BASE EXCESS 2.3 mEq/L (-2.5-2.5); BICARBONATE 26 mEq/L (22-26); MEASURED OXYGEN SATURATION 91 % (92-95); PCO2 40 mmHg (34-38); PO2 62 mmHg (65-75); TCO2 27 mEq/L (23-27)
[2016-12-20 05:50] LABS: % IMMATURE GRANULYOCYTES 1.5 % (0.0-1.1); ABSOLUTE IMMATURE GRANULOCYTES 0.16 10^3/uL (0.00-0.10); ADD DIFF? NO; ADD MORPH? NO; ADD SCAN? NO; ATYPICAL LYMPHOCYTE FLAG 0 (0-99); FRAGMENT RBC FLAG 0 (0-99); HEMATOCRIT 31.3 % (40.0-51.0); HEMOGLOBIN 10.5 g/dL (13.7-17.5); LEFT SHIFT FLG 10 (0-99); LIPEMIA HEMOLYSIS FLAG 80 (0-99); MEAN CELL HEMOGLOBIN 31.5 pg (27.9-34.1); MEAN CELL HEMOGLOBIN CONCENTR. 33.5 g/dL (32.4-36.7); MEAN PLATELET VOLUME 10.4 fL (8.7-11.7); PLATELET CLUMPS FLAG 10 (0-99); PLATELET COUNT 108 10^3/uL (150-400); RED BLOOD CELL COUNT 3.33 10^6/uL (4.40-6.38); RED CELL DISTRIBUTION WIDTH 14.6 % (11.5-15.2)
[2016-12-20 06:05] LABS: ANION GAP 6 mEq/L (8-16); CALCIUM 6.4 mg/dL (8.5-10.4); CARBON DIOXIDE 25 mEq/l (22-31); CHLORIDE 103 mEq/L (97-110); CREATININE 0.8 mg/dL (0.7-1.3); GLOMERULAR FILTRATION RATE > 60; GLUCOSE 154 mg/dL (70-100); MAGNESIUM 2.2 mg/dL (1.6-2.3); POTASSIUM 4.5 mEq/L (3.5-5.2); SODIUM 134 mEq/L (134-144); SPECIMEN HEMOLYSIS 171; URIC ACID 5.8 mg/dL (3.5-8.5)
[2016-12-20] MEDS ORDERED: CALCIUM GLUCONATE 50 ML IV ONE (06:29)
[2016-12-20 07:16] LABS: CK-MB INTERPRETATION NEGATIVE (NEGATIVE)
[2016-12-20] MEDS: methylPREDNISolone SOD SUCC 125 MG/2 ML VIAL IVP SCH (09:47)
[2016-12-20] MEDS: PANTOPRAZOLE SODIUM 40 MG in NS 100 ML IV SCH (09:47)
[2016-12-20 12:20] LABS: ALBUMIN 2.7 g/dL (3.5-5.0); BILIRUBIN,TOTAL 1.2 mg/dL (0.1-1.4); BILIRUBIN-CONJUGATED 0.9 mg/dL (0.0-0.5); BILIRUBIN-UNCONJUGATED 0.3 mg/dL (0.0-1.1); TOTAL PROTEIN 5.3 g/dL (6.3-8.2)
--- NOTE | 2016-12-20 12:52 | PDINTPN ---
Pathology Supervisor Progress Note Assessment/Plan: Assessment/Plan: * Confusion/obtundation. Improved. Off precedex * Pulmonary infiltrates: He has developed more diffuse pulmonary infiltrates. Oxygenation however is not a significant problem. ABG this am OK. Question volume overload/congestive heart failure versus aspiration pneumonitis, verses inflammatory lung disease. Or a combination of these? On ertapenem, bronchodilators. * Rhabdomyolysis, secondary to prolonged down time. Total CPK down. Renal function is now normal. -follow * Altered mental status: Confusion, agitation. Waxes and wanes. Improved * Vasculitis, steroid therapy. This is associated with digital lower extremity ischemia. * Anemia: Secondary to equilibration, IV fluids. No evidence of active bleeding. * DVT prophylaxis: On subcu heparin * Metabolic: Hypokalemia, hypophosphatemia. On replacement protocols. * History of alcohol abuse: On CIWA protocol. Some of his symptoms may or may not be related to alcohol withdrawal?. Subjective: Up in chair. Comfortable Objective: Vital Signs Temp Pulse Resp BP Pulse Ox 35.8 C L 59 L 30 H 110/71 92 12/20/16 08:00 12/20/16 10:00 12/20/16 10:00 12/20/16 10:00 12/20/16 10:00 Laboratory Results 12/20/16 05:20 12/20/16 05:20 12/19/16 12/20/16 12/21/16 05:59 05:59 05:59 Intake Total 3134 Output Total 6400 Balance -3266 PT 19.6 SEC (12.0-15.0) H 12/18/16 03:43 INR 1.65 (0.83-1.16) H 12/18/16 03:43 Laboratory Results 12/20/16 05:20 12/20/16 05:20 12/20/16 12/20/16 12/20/16 11:42 11:15 05:20 Patient Temperature 37.0 DEGREES DEGREES pCO2 40 mmHg H mmHg (34 - 38) pO2 62 mmHg L mmHg (65 - 75) Total CO2 27 mEq/L mEq/L (23 - 27) ABG pH 7.44 (7.35 - 7.45) ABG O2 Saturation 91 % L % (92 - 95) ABG Base Excess 2.3 mEq/L mEq/L (-2.5 - 2.5) Total O2 Concentration 1.0 LITERS LITERS Glucose POC Glucose 153 mg/dL H mg/dL (70 - 100) Uric Acid Calcium Ionized Calcium 1.00 MMOL/L L MMOL/L (1.12 - 1.30) Phosphorus Magnesium Total Bilirubin 1.2 mg/dL D mg/dL (0.1 - 1.4) Conjugated Bilirubin 0.9 mg/dL H mg/dL (0.0 - 0.5) Unconjugated Bilirubin 0.3 mg/dL mg/dL (0.0 - 1.1) ALT 1888 IU/L H IU/L (21 - 72) Alkaline Phosphatase 377 IU/L H IU/L (38 - 126) Creatine Kinase CK-MB (CK-2) Fraction Total Protein 5.3 g/dL L g/dL (6.3 - 8.2) Specimen Hemolysis 12/20/16 05:20 Patient Temperature pCO2 pO2 Total CO2 ABG pH ABG O2 Saturation ABG Base Excess Total O2 Concentration Glucose 154 mg/dL H mg/dL (70 - 100) POC Glucose Uric Acid 5.8 mg/dL mg/dL (3.5 - 8.5) Calcium 6.4 mg/dL L D mg/dL (8.5 - 10.4) Ionized Calcium Phosphorus 3.3 mg/dL mg/dL (2.5 - 4.5) Magnesium 2.2 mg/dL mg/dL (1.6 - 2.3) Total Bilirubin Conjugated Bilirubin Unconjugated Bilirubin ALT Alkaline Phosphatase Creatine Kinase 52599 IU/L H IU/L (0 - 224) CK-MB (CK-2) Fraction 13.20 ng/mL H ng/mL (0 - 4.55) Total Protein Specimen Hemolysis 171 Physical Exam - Physical Exam General Appearance: alert, no apparent distress EENT: PERRL/EOMI, normal ENT inspection Neck: non-tender, full range of motion Respiratory: crackles (few), No respiratory distress, No wheezing, No prolonged expiration Cardiac/Chest: normal peripheral pulses, regular rate, rhythm Abdomen: normal bowel sounds, non-tender, soft Male Genitalia: deferred Rectal: deferred Skin: normal color, warm/dry Extremities: normal range of motion, non-tender, normal inspection, normal capillary refill Neuro/Psych: alert ICD10 Worksheet Patient Problems: Problems Problem Status Onset Hyperkalemia Acute Renal failure Acute Tylenol overdose Acute Ischemic toe Acute Skin lesion Acute
--- NOTE | 2016-12-20 14:10 | HOSPPROG ---
Hospitalist Progress Note Assessment/Plan: 56 yo M e recently diagnosed vasculitis admitted w obtundation, TODD and rhabdomyolysis pulm edema: volume overloaded from resuscitation dc IVF lasix x 1 yesterday cxr improved hold further lasix off IVF rhabdo: ck and cr trending down, rik cr TODD may have been pre renal etiology is being down for undisclosed period of time, likely overnight TODD: ATN from rhabdo +/- prerenal cr normal during last admit so no clear vasculitic component to TODD contine IVF appreciate renal input ?tylenol toxicity: completed course of NAc not one discrete ingestion but ongoing transaminitis: shock liver vs tylenol toxicity vs both complete NAc hemodynamics improved TA's trending down slightly increased today follow daily bili normal rodrigez: dc vasculitis: exact diagnosis remains uncertain continue steroids change to IV as not tolerating po's ? aspiration: small RLL infiltrate on ertapenem certainly this clinical scenario puts him at risk for aspiration proph: sc heparin dispo :icu Subjective: AM cxr w improved airspace disease (interp by me). case d/w dr boyd Objective: Vital Signs Temp Pulse Resp BP Pulse Ox 35.8 C L 59 L 30 H 110/71 92 12/20/16 08:00 12/20/16 10:00 12/20/16 10:00 12/20/16 10:00 12/20/16 10:00 Laboratory Results 12/20/16 05:20 12/20/16 05:20 12/19/16 12/20/16 12/21/16 05:59 05:59 05:59 Intake Total 3134 Output Total 6400 Balance -3266 PT 19.6 SEC (12.0-15.0) H 12/18/16 03:43 INR 1.65 (0.83-1.16) H 12/18/16 03:43 - Physical Exam Constitutional: appears nourished, other (alert, conversant, confused) Eyes: PERRL, anicteric sclera Ears, Nose, Mouth, Throat: moist mucous membranes Cardiovascular: regular rate and rhythym, no murmur, rub, or gallop Respiratory: no respiratory distress, no rales or rhonchi Gastrointestinal: normoactive bowel sounds, soft, non-tender abdomen Genitourinary: rodrigez in urethra Skin: warm, normal color Musculoskeletal: full muscle strength, no muscle tenderness Neurologic: sensation intact bilaterally, No AAOx3 Psychiatric: not anxious, No interacting appropriately Lymph, Heme, Immunologic: no cervical LAD ICD10 Worksheet Patient Problems: Problems Problem Status Onset Hyperkalemia Acute Renal failure Acute Tylenol overdose Acute Ischemic toe Acute Skin lesion Acute
[2016-12-20] MEDS ORDERED: CARBOXYMETHYLCELLULOSE 1% 0.4 ML DROPERETTE EACHEYE PRN (16:52)
[2016-12-20] MEDS: ERTAPENEM 1 GM in NS 50 ML IV SCH (17:07)
[2016-12-20] MEDS: LORazepam 2 MG/ML INJ IVP PRN ×3 (18:15→21:28)
[2016-12-20 18:17] LABS: POTASSIUM 3.5 mEq/L (3.5-5.2)
[2016-12-20] MEDS: POTASSIUM Cl (KCl) 50 ML IV SCH ×3 (20:23→21:51)
[2016-12-21] MEDS: LORazepam 2 MG/ML INJ IVP PRN ×6 (00:12→11:19)
[2016-12-21 04:22] LABS: IONIZED CALCIUM 1.07 MMOL/L (1.12-1.30)
[2016-12-21 04:26] LABS: % IMMATURE GRANULYOCYTES 0.8 % (0.0-1.1); ABSOLUTE IMMATURE GRANULOCYTES 0.13 10^3/uL (0.00-0.10); ADD DIFF? NO; ADD MORPH? NO; ADD SCAN? NO; ATYPICAL LYMPHOCYTE FLAG 0 (0-99); FRAGMENT RBC FLAG 0 (0-99); HEMATOCRIT 33.1 % (40.0-51.0); HEMOGLOBIN 11.2 g/dL (13.7-17.5); LEFT SHIFT FLG 10 (0-99); LIPEMIA HEMOLYSIS FLAG 90 (0-99); MEAN CELL HEMOGLOBIN 31.9 pg (27.9-34.1); MEAN CELL HEMOGLOBIN CONCENTR. 33.8 g/dL (32.4-36.7); MEAN CELL VOLUME 94.3 fL (81.5-99.8); MEAN PLATELET VOLUME 10.7 fL (8.7-11.7); PLATELET CLUMPS FLAG 0 (0-99); PLATELET COUNT 167 10^3/uL (150-400); RED BLOOD CELL COUNT 3.51 10^6/uL (4.40-6.38); RED CELL DISTRIBUTION WIDTH 14.8 % (11.5-15.2)
[2016-12-21] MEDS ORDERED: CALCIUM GLUCONATE 50 ML IV ONE (04:31)
[2016-12-21 04:40] LABS: INR 1.09 (0.83-1.16)
[2016-12-21 04:46] LABS: ALANINE AMINOTRANSFERASE 546 IU/L (21-72); ALBUMIN 2.5 g/dL (3.5-5.0); ALKALINE PHOSPHATASE 97 IU/L (38-126); ANION GAP 9 mEq/L (8-16); ASPARTATE AMINOTRANSFERASE 363 IU/L (17-59); BILIRUBIN,TOTAL 0.9 mg/dL (0.1-1.4); BILIRUBIN-CONJUGATED 0.7 mg/dL (0.0-0.5); BILIRUBIN-UNCONJUGATED 0.2 mg/dL (0.0-1.1); CALCIUM 7.5 mg/dL (8.5-10.4); CARBON DIOXIDE 25 mEq/l (22-31); CHLORIDE 105 mEq/L (97-110); CREATININE 0.9 mg/dL (0.7-1.3); GLOMERULAR FILTRATION RATE > 60; GLUCOSE 133 mg/dL (70-100); MAGNESIUM 2.5 mg/dL (1.6-2.3); POTASSIUM 3.7 mEq/L (3.5-5.2); SODIUM 139 mEq/L (134-144)
[2016-12-21] MEDS ORDERED: POTASSIUM Cl (KCl) 50 ML IV ONE (05:18)
[2016-12-21] MEDS: HEPARIN 5,000 UNIT/0.5 ML SYR SC SCH ×3 (05:40→21:16)
[2016-12-21] MEDS: INSULIN LISPRO 100 UNIT/ML SC SCH ×3 (08:04→18:08)
[2016-12-21] MEDS: methylPREDNISolone SOD SUCC 125 MG/2 ML VIAL IVP SCH (09:28)
[2016-12-21] MEDS: PANTOPRAZOLE SODIUM 40 MG in NS 100 ML IV SCH (09:29)
[2016-12-21] MEDS: THIAMINE HCL 100 MG TAB PO SCH (09:29)
[2016-12-21 09:58] LABS: SMOOTH MUSCLE ANTIBODIES SERUM Negative (Negative)
--- NOTE | 2016-12-21 12:03 | PDINTPN ---
Biotech Production Specialist Progress Note Assessment/Plan: Assessment/Plan: * Pulmonary infiltrates- Question volume overload/congestive heart failure versus aspiration pneumonitis, verses inflammatory lung disease. Or a combination of these? On ertapenem, bronchodilators. -check CXR in am * Rhabdomyolysis, secondary to prolonged down time. Total CPK down. Renal function is now normal. -follow * Altered mental status: Confusion, agitation. Slowly mproving * Vasculitis, steroid therapy. This is associated with digital lower extremity ischemia. * Anemia: Secondary to equilibration, IV fluids. No evidence of active bleeding. * DVT prophylaxis: On subcu heparin * Metabolic: Hypokalemia, hypophosphatemia. On replacement protocols. * History of alcohol abuse: On CIWA protocol. 12/21/16 12:01 Subjective: Resting comfortably Objective: Vital Signs Temp Pulse Resp BP Pulse Ox 37.0 C 82 18 144/84 H 100 12/21/16 10:00 12/21/16 10:52 12/21/16 08:00 12/21/16 10:52 12/21/16 10:52 Laboratory Results 12/21/16 04:00 12/21/16 04:00 12/20/16 12/21/16 12/22/16 05:59 05:59 05:59 Intake Total 3134 557 Output Total 6400 1125 Balance -3266 -568 PT 14.0 SEC (12.0-15.0) 12/21/16 04:00 INR 1.09 (0.83-1.16) 12/21/16 04:00 Laboratory Results 12/21/16 04:00 12/21/16 04:00 12/21/16 12/21/16 04:00 04:00 Calcium 7.5 mg/dL L D mg/dL (8.5 - 10.4) Ionized Calcium 1.07 MMOL/L L MMOL/L (1.12 - 1.30) Phosphorus 2.5 mg/dL D mg/dL (2.5 - 4.5) Magnesium 2.5 mg/dL H mg/dL (1.6 - 2.3) Total Bilirubin 0.9 mg/dL mg/dL (0.1 - 1.4) Conjugated Bilirubin 0.7 mg/dL H mg/dL (0.0 - 0.5) Unconjugated Bilirubin 0.2 mg/dL mg/dL (0.0 - 1.1) AST 363 IU/L H IU/L (17 - 59) ALT 546 IU/L H IU/L (21 - 72) Alkaline Phosphatase 97 IU/L IU/L (38 - 126) Total Protein 5.0 g/dL L g/dL (6.3 - 8.2) Albumin 2.5 g/dL L g/dL (3.5 - 5.0) Physical Exam - Physical Exam General Appearance: alert, mild distress EENT: PERRL/EOMI, normal ENT inspection Neck: non-tender, full range of motion, supple Respiratory: crackles (few), No accessory muscle use, No stridor, No wheezing Cardiac/Chest: normal peripheral pulses, regular rate, rhythm, systolic murmur Abdomen: normal bowel sounds, non-tender, soft Male Genitalia: deferred Rectal: deferred Skin: normal color, warm/dry Extremities: normal range of motion, non-tender, normal inspection, normal capillary refill ICD10 Worksheet Patient Problems: Problems Problem Status Onset Hyperkalemia Acute Renal failure Acute Tylenol overdose Acute Ischemic toe Acute Skin lesion Acute
[2016-12-21] MEDS ORDERED: HALOPERIDOL LACT 5 MG/ML INJ ONE (12:53)
[2016-12-21] MEDS: HALOPERIDOL LACT 5 MG/ML INJ IV PRN (13:00)
[2016-12-21] MEDS: ERTAPENEM 1 GM in NS 50 ML IV SCH (16:22)
[2016-12-21] MEDS ORDERED: BISACODYL 10 MG SUPP PR PRN (16:57)
[2016-12-21] MEDS ORDERED: POLYETHYLENE GLYCOL 3350 17 GM PKT PO PRN (16:57)
[2016-12-21] MEDS ORDERED: LACTULOSE 20 GM/30 ML UDCUP PO PRN (16:57)
[2016-12-21] MEDS ORDERED: MAGNESIUM HYDROXIDE 30 ML UDCUP PO PRN (16:57)
--- NOTE | 2016-12-21 17:29 | HOSPPROG ---
Hospitalist Progress Note Assessment/Plan: 56 yo M e recently diagnosed vasculitis admitted w obtundation, TODD and rhabdomyolysis # rhabdo: ck and cr trending down, ck at last check was 15k, will recheck in am # TODD: ATN from rhabdo +/- prerenal , resolved with IVF, appreciate renal input # transaminitis: in setting of prolonged tylenol use and likely shock liver, s/ p NAc, TA have been trending down, continue to trend # ?tylenol toxicity: completed course of NAc not one discrete ingestion but ongoing # acute encephalopathy: patient agitated, nearly manic. At baseline apparently able to work etc. Responded well to haldol, seems as though ativan had paradoxical effect. Continue to monitor. # urinary retention: attempted to dc rodrigez but continues to have urinary retention, rodrigez replaced # vasculitis: exact diagnosis remains uncertain continue steroids # ? aspiration: small RLL infiltrate on personal review of cxr noted to have small infiltrate on ertapenem certainly this clinical scenario puts him at risk for aspiration proph: sc heparin dispo :icu Patient new to my care> Old records reviewed and summarized as above. Care plan reviewed with Dr. boyd and multidisciplinary care team on rounds, further hx obtained from patients present at bedside. Subjective: patient agitated, preseverative, wants to dc home Objective: Vital Signs Temp Pulse Resp BP Pulse Ox 36.6 C 79 18 141/82 H 95 12/21/16 12:00 12/21/16 16:00 12/21/16 16:00 12/21/16 16:00 12/21/16 16:00 Laboratory Results 12/21/16 04:00 12/21/16 04:00 12/20/16 12/21/16 12/22/16 05:59 05:59 05:59 Intake Total 3134 557 Output Total 6400 1125 Balance -3266 -568 PT 14.0 SEC (12.0-15.0) 12/21/16 04:00 INR 1.09 (0.83-1.16) 12/21/16 04:00 awake alert agitated anxious anicteric op clear rrr no mrg cta b soft nt nd trace ble edema bilateral toes with necrotic eschar, diffuse ecchymosis and hemotoma palms agitated, perseverative, anxious ICD10 Worksheet Patient Problems: Problems Problem Status Onset Skin lesion Acute Ischemic toe Acute Tylenol overdose Acute Renal failure Acute Hyperkalemia Acute
[2016-12-21 18:54] LABS: POTASSIUM 4.2 mEq/L (3.5-5.2)
[2016-12-21] MEDS: SENNOSIDES/DOCUSATE SODIUM TAB PO SCH (21:16)
[2016-12-22 04:04] LABS: IONIZED CALCIUM 1.17 MMOL/L (1.12-1.30)
[2016-12-22 04:05] LABS: % IMMATURE GRANULYOCYTES 0.7 % (0.0-1.1); ABSOLUTE IMMATURE GRANULOCYTES 0.11 10^3/uL (0.00-0.10); ADD DIFF? NO; ADD MORPH? NO; ADD SCAN? NO; ATYPICAL LYMPHOCYTE FLAG 0 (0-99); FRAGMENT RBC FLAG 0 (0-99); HEMATOCRIT 30.2 % (40.0-51.0); LEFT SHIFT FLG 10 (0-99); LIPEMIA HEMOLYSIS FLAG 80 (0-99); MEAN CELL HEMOGLOBIN 31.5 pg (27.9-34.1); MEAN CELL HEMOGLOBIN CONCENTR. 33.1 g/dL (32.4-36.7); MEAN CELL VOLUME 95.3 fL (81.5-99.8); MEAN PLATELET VOLUME 9.9 fL (8.7-11.7); PLATELET CLUMPS FLAG 0 (0-99); PLATELET COUNT 139 10^3/uL (150-400); RED BLOOD CELL COUNT 3.17 10^6/uL (4.40-6.38); RED CELL DISTRIBUTION WIDTH 14.6 % (11.5-15.2)
[2016-12-22 04:55] LABS: ALANINE AMINOTRANSFERASE 404 IU/L (21-72); ALBUMIN 2.4 g/dL (3.5-5.0); ALKALINE PHOSPHATASE 88 IU/L (38-126); ANION GAP 7 mEq/L (8-16); ASPARTATE AMINOTRANSFERASE 165 IU/L (17-59); BILIRUBIN,TOTAL 0.6 mg/dL (0.1-1.4); BILIRUBIN-CONJUGATED 0.6 mg/dL (0.0-0.5); CALCIUM 7.7 mg/dL (8.5-10.4); CARBON DIOXIDE 25 mEq/l (22-31); CHLORIDE 108 mEq/L (97-110); CREATININE 0.8 mg/dL (0.7-1.3); GLOMERULAR FILTRATION RATE > 60; GLUCOSE 151 mg/dL (70-100); MAGNESIUM 2.4 mg/dL (1.6-2.3); POTASSIUM 4.3 mEq/L (3.5-5.2); SODIUM 140 mEq/L (134-144); TOTAL PROTEIN 4.8 g/dL (6.3-8.2)
[2016-12-22] MEDS: HEPARIN 5,000 UNIT/0.5 ML SYR SC SCH ×3 (05:31→21:35)
[2016-12-22] MEDS: HALOPERIDOL LACT 5 MG/ML INJ IV PRN (05:31)
[2016-12-22 05:34] LABS: CK-MB INTERPRETATION NEGATIVE (NEGATIVE)
[2016-12-22] MEDS: LORazepam 2 MG/ML INJ IVP PRN (05:39)
[2016-12-22 05:45] LABS: CREATINE KINASE-MB FRACTION 5.89 ng/mL (0-3.19)
[2016-12-22] MEDS ORDERED: HALOPERIDOL LACT 5 MG/ML INJ IVP ONE (06:56)
[2016-12-22] MEDS: INSULIN LISPRO 100 UNIT/ML SC SCH ×3 (07:47→18:09)
[2016-12-22] MEDS: THIAMINE HCL 100 MG TAB PO SCH (07:51)
[2016-12-22] MEDS: SENNOSIDES/DOCUSATE SODIUM TAB PO SCH ×2 (07:51→21:35)
[2016-12-22] MEDS: methylPREDNISolone SOD SUCC 125 MG/2 ML VIAL IVP SCH (07:51)
[2016-12-22] MEDS: PANTOPRAZOLE SODIUM 40 MG in NS 100 ML IV SCH (10:02)
--- NOTE | 2016-12-22 12:04 | PDINTPN ---
Turf Farmer Progress Note Assessment/Plan: Assessment/Plan: * Pulmonary infiltrates- Question volume overload/congestive heart failure versus aspiration pneumonitis, verses inflammatory lung disease. ` -improved * Rhabdomyolysis, secondary to prolonged down time. Total CPK down. Renal function is now normal. -follow * Altered mental status: Improved today, though period of agitation early am * Vasculitis, steroid therapy. This is associated with digital lower extremity ischemia. * Anemia: Secondary to equilibration, IV fluids. No evidence of active bleeding. * DVT prophylaxis: On subcu heparin * Metabolic: Hypokalemia, hypophosphatemia. On replacement protocols. * History of alcohol abuse: On CIWA protocol. * Dispo-transfer to SDU today Subjective: Resting comfortably Objective: Vital Signs Temp Pulse Resp BP Pulse Ox 37.0 C 77 25 H 148/79 H 96 12/22/16 11:58 12/22/16 11:58 12/22/16 11:58 12/22/16 11:58 12/22/16 11:58 Laboratory Results 12/22/16 04:00 12/22/16 04:00 12/21/16 12/22/16 12/23/16 05:59 05:59 05:59 Intake Total 557 2125 1720 Output Total 1125 1175 Balance -497 556 1439 PT 14.0 SEC (12.0-15.0) 12/21/16 04:00 INR 1.09 (0.83-1.16) 12/21/16 04:00 Laboratory Results 12/22/16 04:00 12/22/16 04:00 12/22/16 12/22/16 04:00 04:00 Calcium 7.7 mg/dL L mg/dL (8.5 - 10.4) Ionized Calcium 1.17 MMOL/L MMOL/L (1.12 - 1.30) Phosphorus 2.4 mg/dL L mg/dL (2.5 - 4.5) Magnesium 2.4 mg/dL H mg/dL (1.6 - 2.3) Total Bilirubin 0.6 mg/dL mg/dL (0.1 - 1.4) Conjugated Bilirubin 0.6 mg/dL H mg/dL (0.0 - 0.5) Unconjugated Bilirubin 0.0 mg/dL mg/dL (0.0 - 1.1) AST 165 IU/L H IU/L (17 - 59) ALT 404 IU/L H IU/L (21 - 72) Alkaline Phosphatase 88 IU/L IU/L (38 - 126) Creatine Kinase 2958 IU/L H IU/L (0 - 224) CK-MB (CK-2) Fraction 5.89 ng/mL H ng/mL (0 - 3.19) CK-MB (CK-2) % 0.2 % % (0.0 - 4.0) Creatine Kinase Interp NEGATIVE Total Protein 4.8 g/dL L g/dL (6.3 - 8.2) Albumin 2.4 g/dL L g/dL (3.5 - 5.0) CXR-reviewed by myself showe improved opacities Physical Exam - Physical Exam General Appearance: alert, no apparent distress EENT: PERRL/EOMI, normal ENT inspection Neck: non-tender, full range of motion Respiratory: crackles (few), No respiratory distress, No accessory muscle use, No stridor, No wheezing Cardiac/Chest: normal peripheral pulses, regular rate, rhythm Peripheral Pulses: 2+: carotid (R), carotid (L), femoral (R), femoral (L), dorsalis-pedis (R), dorsalis-pedis (L) Abdomen: normal bowel sounds, non-tender, soft Male Genitalia: deferred Rectal: deferred Skin: normal color, warm/dry Neuro/Psych: alert ICD10 Worksheet Patient Problems: Problems Problem Status Onset Hyperkalemia Acute Renal failure Acute Tylenol overdose Acute Ischemic toe Acute Skin lesion Acute
--- NOTE | 2016-12-22 14:43 | WOCRNPDOC ---
WOCRN Advanced Assessment Note - Skin Integrity Problem, Advanced Assess Right Hand Abrasion Dressing Type: Allevyn Life (on dorsal aspect of R hand proximal to 2nd and 3rd digits), Band Aid (on R lateral hand) Dressing Description: Clean/Dry, Intact Exudate Amount: Minimal Exudate Color: Reddish/Yellow Exudate Characteristic(s): Serosanguinous Integumentary Issue Intervention: Dressing Changed, Silver Gel Applied Linda Wound Swelling: Mild Wound Bed Color: Red, Yellow Wound Bed Constitution: Granulation Tissue, Scab (on R lateral hand), Adhered Slough Wound Edges: Not Attached Site Odor: None Site Measurement - Head-to-Toe Length X Width X Depth (cm): [id number] Skin Integrity Problem Comment: Wound on the R dorsal hand proximal to the 2nd and 3rd digits was the result of an ischemic-like injury, previously necrotic during previous hospitalization. Presently, wound bed consists of 90% granulation tissue and 10% adhered slough. Wound on R lateral hand is presently scabbed, w/ no exudate noted. Changed dressing to Hydrofera Blue Ready for the dorsal aspect and Replicare hydrocolloid to the lateral aspect. Left Hand Blister Dressing Type: Kerlix, Mepilex, Mepilex Transfer Dressing Description: Clean/Dry, Intact Exudate Amount: None Exudate Characteristic(s): None Integumentary Issue Intervention: Visualized Under Dressing Wound Bed Constitution: Intact Sanguineous Blister Skin Integrity Problem Comment: Large, intact sanguinous blister covering palmar surface of L hand and extending to the thenar eminence. Presently, protective dressing was applied by nursing per nisha. Will continue to monitor this wound as it evolves.
--- NOTE | 2016-12-22 17:00 | HOSPPROG ---
Hospitalist Progress Note Assessment/Plan: 56 yo M e recently diagnosed vasculitis admitted w obtundation, TODD and rhabdomyolysis # rhabdo: ck and cr trending down, ck now down to 3000 # TODD: ATN from rhabdo +/- prerenal , resolved with IVF, appreciate renal input # transaminitis: in setting of prolonged tylenol use and likely shock liver, s/ p NAc, TA have been trending down, continue to trend # ?tylenol toxicity: completed course of NAc not one discrete ingestion but ongoing # acute encephalopathy: patient agitated, and tangential, intermittently nearly manic. ? if related to ativan or simply agitated delerium in setting of prolonged illness. Doing better with haldol. Monitoring # urinary retention: attempted to dc rodrigez but continues to have urinary retention, rodrigez replaced and dc'ed again today, monitoring # vasculitis: exact diagnosis remains uncertain continue steroids # ? aspiration: small RLL infiltrate on personal review of cxr noted to have small infiltrate on ertapenem certainly this clinical scenario puts him at risk for aspiration proph: sc heparin dispo :icu Care plan reviewewed with DR. Armstrong and multidisciplinary care team on rounds. Subjective: patient very agitated this am, aggressive requiring restraints, improved over the course of the day Objective: Vital Signs Temp Pulse Resp BP Pulse Ox 36.2 C 80 14 162/84 H 98 12/22/16 15:49 12/22/16 15:49 12/22/16 15:49 12/22/16 15:49 12/22/16 15:49 Laboratory Results 12/22/16 04:00 12/22/16 04:00 12/21/16 12/22/16 12/23/16 05:59 05:59 05:59 Intake Total 557 2125 3120 Output Total 1125 1175 450 Balance -317 671 6165 PT 14.0 SEC (12.0-15.0) 12/21/16 04:00 INR 1.09 (0.83-1.16) 12/21/16 04:00 awake alert agitated anxious anicteric op clear rrr no mrg cta b soft nt nd trace ble edema bilateral toes with necrotic eschar, diffuse ecchymosis and hemotoma palms agitated, perseverative, anxious - Time Spent With Patient Time Spent with Patient: greater than 35 minutes Time Spent with Patient: Greater than 35 minutes spent on this patients care, greater than 50% of time spent counseling, educating, and coordinating care regarding the above mentioned plan. ICD10 Worksheet Patient Problems: Problems Problem Status Onset Hyperkalemia Acute Renal failure Acute Tylenol overdose Acute Ischemic toe Acute Skin lesion Acute
[2016-12-22] MEDS: ERTAPENEM 1 GM in NS 50 ML IV SCH (17:45)
[2016-12-22 20:05] LABS: POTASSIUM 3.9 mEq/L (3.5-5.2)
[2016-12-22] MEDS ORDERED: POTASSIUM Cl (KCl) 50 ML IV ONE (20:19)
[2016-12-23] MEDS: LORazepam 2 MG/ML INJ IVP PRN (00:22)
[2016-12-23 05:32] LABS: IONIZED CALCIUM 1.02 MMOL/L (1.12-1.30)
[2016-12-23 05:36] LABS: % IMMATURE GRANULYOCYTES 1.3 % (0.0-1.1); ABSOLUTE IMMATURE GRANULOCYTES 0.21 10^3/uL (0.00-0.10); ADD DIFF? NO; ADD MORPH? NO; ADD SCAN? NO; ATYPICAL LYMPHOCYTE FLAG 10 (0-99); FRAGMENT RBC FLAG 0 (0-99); HEMATOCRIT 28.5 % (40.0-51.0); HEMOGLOBIN 9.3 g/dL (13.7-17.5); LEFT SHIFT FLG 10 (0-99); LIPEMIA HEMOLYSIS FLAG 80 (0-99); MEAN CELL HEMOGLOBIN 32.1 pg (27.9-34.1); MEAN CELL HEMOGLOBIN CONCENTR. 32.6 g/dL (32.4-36.7); MEAN CELL VOLUME 98.3 fL (81.5-99.8); MEAN PLATELET VOLUME 10.8 fL (8.7-11.7); PLATELET CLUMPS FLAG 10 (0-99); PLATELET COUNT 132 10^3/uL (150-400); RED CELL DISTRIBUTION WIDTH 14.4 % (11.5-15.2)
[2016-12-23 05:49] LABS: ALANINE AMINOTRANSFERASE 331 IU/L (21-72); ALBUMIN 2.4 g/dL (3.5-5.0); ALKALINE PHOSPHATASE 83 IU/L (38-126); ANION GAP 5 mEq/L (8-16); ASPARTATE AMINOTRANSFERASE 117 IU/L (17-59); BILIRUBIN,TOTAL 0.6 mg/dL (0.1-1.4); BILIRUBIN-CONJUGATED 0.5 mg/dL (0.0-0.5); BILIRUBIN-UNCONJUGATED 0.1 mg/dL (0.0-1.1); CALCIUM 7.5 mg/dL (8.5-10.4); CARBON DIOXIDE 24 mEq/l (22-31); CHLORIDE 107 mEq/L (97-110); CREATININE 0.6 mg/dL (0.7-1.3); GLOMERULAR FILTRATION RATE > 60; GLUCOSE 113 mg/dL (70-100); POTASSIUM 4.2 mEq/L (3.5-5.2); SODIUM 136 mEq/L (134-144); TOTAL PROTEIN 4.7 g/dL (6.3-8.2)
[2016-12-23] MEDS ORDERED: CALCIUM GLUCONATE 50 ML IV ONE (06:08)
[2016-12-23] MEDS: HEPARIN 5,000 UNIT/0.5 ML SYR SC SCH ×3 (06:28→21:15)
[2016-12-23] MEDS: INSULIN LISPRO 100 UNIT/ML SC SCH ×3 (08:46→18:46)
[2016-12-23] MEDS: THIAMINE HCL 100 MG TAB PO SCH (08:59)
[2016-12-23] MEDS: SENNOSIDES/DOCUSATE SODIUM TAB PO SCH ×2 (08:59→19:49)
[2016-12-23] MEDS: methylPREDNISolone SOD SUCC 125 MG/2 ML VIAL IVP SCH (09:00)
[2016-12-23] MEDS: PANTOPRAZOLE SODIUM 40 MG in NS 100 ML IV SCH (09:00)
--- NOTE | 2016-12-23 10:49 | PDINTPN ---
Bundle Person Progress Note Assessment/Plan: Assessment/Plan: * Pulmonary infiltrates- Question volume overload/congestive heart failure versus aspiration pneumonitis, verses inflammatory lung disease. ` -improved * Rhabdomyolysis, secondary to prolonged down time. Total CPK down. -follow * Altered mental status: Improved today * Vasculitis, steroid therapy. This is associated with digital lower extremity ischemia. * Anemia: Secondary to equilibration, IV fluids. No evidence of active bleeding. * DVT prophylaxis: On subcu heparin * Metabolic: Hypokalemia, hypophosphatemia. On replacement protocols. * History of alcohol abuse: On CIWA protocol. * Dispo-transfer to med surg today 12/23/16 10:48 Subjective: comfortable. no confusion Objective: Vital Signs Temp Pulse Resp BP Pulse Ox 36.1 C 75 16 155/87 H 99 12/23/16 04:00 12/23/16 08:00 12/23/16 08:00 12/23/16 08:00 12/23/16 08:00 Microbiology 12/17/16 15:51 Blood Culture - Final Blood 12/17/16 16:05 Blood Culture - Final Blood Laboratory Results 12/23/16 05:20 12/23/16 05:20 12/22/16 12/23/16 12/24/16 05:59 05:59 05:59 Intake Total 2125 4319 Output Total 1175 2275 Balance 950 2044 PT 14.0 SEC (12.0-15.0) 12/21/16 04:00 INR 1.09 (0.83-1.16) 12/21/16 04:00 Physical Exam - Physical Exam General Appearance: alert, no apparent distress EENT: PERRL/EOMI, normal ENT inspection Neck: non-tender, full range of motion, supple Respiratory: crackles (few), No respiratory distress, No wheezing, No prolonged expiration Cardiac/Chest: normal peripheral pulses, regular rate, rhythm Peripheral Pulses: 2+: carotid (R), carotid (L), femoral (R), femoral (L), dorsalis-pedis (R), dorsalis-pedis (L) Abdomen: normal bowel sounds, non-tender, soft Male Genitalia: deferred Rectal: deferred Lymphatic: no adenopathy Neuro/Psych: alert ICD10 Worksheet Patient Problems: Problems Problem Status Onset Hyperkalemia Acute Renal failure Acute Tylenol overdose Acute Ischemic toe Acute Skin lesion Acute
--- NOTE | 2016-12-23 16:37 | HOSPPROG ---
Hospitalist Progress Note Assessment/Plan: 56 yo M e recently diagnosed vasculitis admitted w obtundation, TODD and rhabdomyolysis # rhabdo: ck and cr trending down, resolved # TODD: ATN from rhabdo +/- prerenal , resolved with IVF, appreciate renal input # transaminitis: in setting of prolonged tylenol use and likely shock liver, s/ p NAc, TA have been trending down, continue to trend # ?tylenol toxicity: completed course of NAc not one discrete ingestion but ongoing # acute encephalopathy: improving, multifactorial. likley some withdrawal contributing. # urinary retention: attempted to dc rodrigez but continues to have urinary retention, rodrigez replaced and dc'ed again today, monitoring # vasculitis: exact diagnosis remains uncertain continue steroids # ? aspiration: small RLL infiltrate on personal review of cxr noted to have small infiltrate on ertapenem certainly this clinical scenario puts him at risk for aspiration proph: sc heparin dispo :icu Care plan reviewewed with DR. Armstrong and multidisciplinary care team on rounds. Subjective: no signficant overnight events, patient feeling better Objective: Vital Signs Temp Pulse Resp BP Pulse Ox 36.6 C 71 18 171/102 H 95 12/23/16 16:00 12/23/16 16:00 12/23/16 16:00 12/23/16 16:00 12/23/16 16:00 Microbiology 12/17/16 15:51 Blood Culture - Final Blood 12/17/16 16:05 Blood Culture - Final Blood Laboratory Results 12/23/16 05:20 12/23/16 05:20 12/22/16 12/23/16 12/24/16 05:59 05:59 05:59 Intake Total 2125 4319 1260 Output Total 1175 2275 400 Balance 950 2044 860 PT 14.0 SEC (12.0-15.0) 12/21/16 04:00 INR 1.09 (0.83-1.16) 12/21/16 04:00 awake alert agitated anxious anicteric op clear rrr no mrg cta b soft nt nd trace ble edema bilateral toes with necrotic eschar, diffuse ecchymosis and hemotoma palms agitated, perseverative, anxious ICD10 Worksheet Patient Problems: Problems Problem Status Onset Hyperkalemia Acute Renal failure Acute Tylenol overdose Acute Ischemic toe Acute Skin lesion Acute
[2016-12-23] MEDS: ERTAPENEM 1 GM in NS 50 ML IV SCH (17:13)
[2016-12-23 19:19] LABS: POTASSIUM 4.2 mEq/L (3.5-5.2)
[2016-12-23] MEDS: hydrALAZINE 20 MG/ML VIAL IVP PRN (20:09)
[2016-12-24 04:47] LABS: IONIZED CALCIUM 1.07 MMOL/L (1.12-1.30)
[2016-12-24 04:52] LABS: % IMMATURE GRANULYOCYTES 1.9 % (0.0-1.1); ABSOLUTE IMMATURE GRANULOCYTES 0.26 10^3/uL (0.00-0.10); ABSOLUTE NRBC COUNT 0.02 10^3/uL (0-0.01); ADD DIFF? NO; ADD MORPH? NO; ADD SCAN? NO; ATYPICAL LYMPHOCYTE FLAG 10 (0-99); FRAGMENT RBC FLAG 0 (0-99); HEMATOCRIT 32.3 % (40.0-51.0); LEFT SHIFT FLG 10 (0-99); LIPEMIA HEMOLYSIS FLAG 90 (0-99); MEAN CELL HEMOGLOBIN 32.7 pg (27.9-34.1); MEAN CELL HEMOGLOBIN CONCENTR. 34.1 g/dL (32.4-36.7); MEAN CELL VOLUME 96.1 fL (81.5-99.8); MEAN PLATELET VOLUME 10.9 fL (8.7-11.7); NRBC-AUTO% 0.1 % (0.0-0.2); PLATELET CLUMPS FLAG 0 (0-99); PLATELET COUNT 181 10^3/uL (150-400); RED BLOOD CELL COUNT 3.36 10^6/uL (4.40-6.38); RED CELL DISTRIBUTION WIDTH 14.3 % (11.5-15.2)
[2016-12-24 05:01] LABS: ALANINE AMINOTRANSFERASE 315 IU/L (21-72); ALKALINE PHOSPHATASE 93 IU/L (38-126); ASPARTATE AMINOTRANSFERASE 96 IU/L (17-59); BILIRUBIN,TOTAL 0.8 mg/dL (0.1-1.4); BILIRUBIN-CONJUGATED 0.3 mg/dL (0.0-0.5); BILIRUBIN-UNCONJUGATED 0.5 mg/dL (0.0-1.1); CALCIUM 8.2 mg/dL (8.5-10.4); CARBON DIOXIDE 26 mEq/l (22-31); CHLORIDE 105 mEq/L (97-110); CREATININE 0.7 mg/dL (0.7-1.3); GLOMERULAR FILTRATION RATE > 60; GLUCOSE 82 mg/dL (70-100); SODIUM 139 mEq/L (134-144); TOTAL PROTEIN 5.3 g/dL (6.3-8.2)
[2016-12-24 05:06] LABS: ANION GAP 8 mEq/L (8-16); POTASSIUM 3.6 mEq/L (3.5-5.2)
[2016-12-24] MEDS: HEPARIN 5,000 UNIT/0.5 ML SYR SC SCH ×2 (05:29→15:04)
[2016-12-24] MEDS ORDERED: POTASSIUM CL 10 MEQ TAB PO ONE (08:15)
--- NOTE | 2016-12-24 09:39 | WOCRNPDOC ---
WOCRN Advanced Assessment Note - Skin Integrity Problem, Advanced Assess Left Hand Blister Dressing Type: Open to Air Integumentary Issue Intervention: Lotion/Cream Applied (skin repair) Wound Bed Constitution: Intact Sanguineous Blister Extremity Temperature: Warm Skin Integrity Problem Comment: Huge intact palmar blister. Recommend surgical consult as it is unlikely the fluid will reabsorb. Wrapped with paulina for comfort and support. Discussed with Dr. Marin. Right second knuckle surgical wound/incision Dressing Type: Contact Layer, Paulina Dressing Description: Clean/Dry, Intact Exudate Amount: None Integumentary Issue Intervention: Dressing Changed Wound Bed Constitution: Granulation Tissue Wound Edges: Not Attached Site Odor: None Skin Integrity Problem Comment: Wound dried out. Cleaned with wound cleanser and gauze. Silvasorb to wound bed after applying skin prep linda wound. Hydrofera blue ready to cover wound base. Covered with tegaderm absorbant. Right Medial Hand Dressing Type: Hydrocolloid, Kerlix Dressing Description: Clean/Dry, Intact Exudate Amount: None Integumentary Issue Intervention: Dressing Changed Wound Bed Color: Brown, [place], Red Wound Bed Constitution: Smooth Tissue (40%), Mixed Loose & Adhered Slough/ Eschar (60%) Skin Integrity Problem Comment: Removed minimal tissue with forceps. Trimmed away loose skin. Honey gel to wound bed and covered with hydrocolloid after skin prep linda wound. Bilateral Distal Toes, Eschar Dressing Type: Kerlix Exudate Amount: Minimal Exudate Characteristic(s): Serosanguinous Integumentary Issue Intervention: Dressing Changed, Conservative Sharp Bedside Debridement (of skin only) Linda Wound Tissue: Erythema Wound Bed Color: Black, Red Wound Bed Constitution: Granulation Tissue (on left great toe where skin was removed), Smooth Tissue (right 5th digit under areas where skin was removed. ), Stable Eschar (to tips of all toes) Site Odor: None Extremity Temperature: Warm Skin Integrity Problem Comment: Cleaned with wound cleanser and gauze. Wove mepilex ag transfer through toes, painted with betadine and wrapped with paulina and kerlix. Removed and discarded socks that were too tight. Reapplied shoes. Right shoe had more than 10 dick in the straps that were removed. Patient quite confused and slurring occasionally.
--- NOTE | 2016-12-24 09:52 | CPEKG ---
Heart Rate: 72 RR Interval: 833 P-R Interval: 124 QRSD Interval: 82 QT Interval: 404 QTC Interval: 443 P [place]: 68 QRS [place]: 47 T Wave [place]: 32 EKG Severity - NORMAL ECG - EKG Impression: SINUS RHYTHM Electronically Signed By: Agustin Cooley 24-Dec-2016 13:05:57
[2016-12-24] MEDS: INSULIN LISPRO 100 UNIT/ML SC SCH ×2 (10:05→12:38)
[2016-12-24] MEDS ORDERED: CALCIUM GLUCONATE 50 ML IV ONE (10:06)
[2016-12-24] MEDS: methylPREDNISolone SOD SUCC 125 MG/2 ML VIAL IVP SCH (10:16)
[2016-12-24] MEDS: THIAMINE HCL 100 MG TAB PO SCH (10:17)
[2016-12-24] MEDS: SENNOSIDES/DOCUSATE SODIUM TAB PO SCH (10:18)
[2016-12-24 10:48] LABS: CK-MB INTERPRETATION NEGATIVE (NEGATIVE); TROPONIN I 0.016 ng/mL (0-0.034)
[2016-12-24 10:56] LABS: CREATINE KINASE-MB FRACTION 4.93 ng/mL (0-3.19)
[2016-12-24 11:31] VITALS: BP 143/78; PULSE 89; RESP 16; TEMP 98.3; O2SAT 91
--- NOTE | 2016-12-24 14:12 | GOP ---
[f rep st] OPERATIVE REPORT DATE OF OPERATION: 12/24/2016 SURGEON: Adiel Benavidez MD SEWAGE DISPOSAL WORKER: None. ANESTHESIA: None. PREOPERATIVE DIAGNOSIS: Large left palmar blood blister. POSTOPERATIVE DIAGNOSIS: Large left palmar blood blister. PROCEDURE PERFORMED: Bedside aspiration of large left palmar blood blister. FINDINGS: Successfully drained what appeared to be a seroma. The overlying skin did appear viable at the time of aspiration. ESTIMATED BLOOD LOSS: Minimal. DESCRIPTION OF PROCEDURE: The patient was greeted in his room. After explaining the risks, benefit s, and alternatives, he wished to proceed. The consent was signed. A [employer] jarad e-out was performed. The left palm was then cleansed with chlorhexidine. After successful prep, us ing a 21-gauge butterfly needle, I successfully aspirated into the blood blister and aspirated appro ximately 300 cc of old blood out of the cavity. I did have to milk some of this out with gentle pre ssure. The patient tolerated that portion of the procedure well. After all fluid had been successf ully evacuated, I packed gauze into it to create a pressure dressing, wrapped it with Kerlix and Cob an dressing. The patient tolerated procedure well without any intraprocedural complications. /[id number]/MODL
--- NOTE | 2016-12-24 14:26 | GCON ---
[f rep st] CONSULTATION DATE OF CONSULTATION: 12/24/2016 CHIEF COMPLAINT: Left palmar blood blister. HISTORY OF PRESENT ILLNESS: This is a 56-year-old male admitted to the medicine service originally on the of this month. Briefly, he is a repeat admission as he was discharged just 5 days prior to his readmission. At any rate, the patient had apparently went home, went on a drinking binge an d had a fall, apparently related to what appears to be a narcotic overdose. Patient was admitted ob tunded and successfully managed by the medical service. He has since cleared his obtundation, [facility], has a fairly large, persistent, [id number] blood blister on his left hand. He has been evaluated by the wound care service and felt that this would not be amenable to conservativ e management. On my presentation, the patient states that the area really is not that tender. He d oes still endorse having sensation over the palmar aspect where the blood blister is. Denies having any discharge. The remainder of the sensation and motor is intact in his hand, although the blood blister is quite large. PAST MEDICAL HISTORY: Peripheral vasculitis, anxiety, GERD, substance abuse. PAST SURGICAL HISTORY: Denies. MEDICATIONS: The patient's medical rec was reviewed in [facility]. ALLERGIES: Cephalexin. REVIEW OF SYSTEMS: A full 10-point review was performed and unless explicitly stated above is other yeh negative. PHYSICAL EXAMINATION: VITAL SIGNS: Temperature 36.8, heart rate 89, blood pressure 140/78, and he is 91% on room air. GENERAL: He is alert, oriented, in no acute distress. CV: He has a regular r ate and rhythm. LUNGS: Clear. ABDOMEN: Soft. EXTREMITIES: His left hand has a large blood blis ter taking up the majority of his palm, measuring the size of an orange. He does endorse having sen sation to this. It does not appear to be draining. LABORATORY DATA: Leukocytosis to 13,000, H and H stable at 11 and 32. Coags last checked on the with an INR of 1.09. ASSESSMENT AND PLAN: A 56-year-old male with large left palmar blood blister, status post fall. I evaluated the patient at the bedside today. I do not feel that this will resolve without drainage. After explaining the risks, benefits, and alternatives, the patient wishes to proceed. I will plan for bedside aspiration of this. I did tell the patient that there is a chance, given the fact that this injury happened almost a week ago, that the overlying skin may not heal, and he may need more wound care attention to this, but we will give it a chance as it appears viable at this point in jarad [place]. He wishes to proceed. /[id number]/MODL
--- NOTE | 2016-12-24 14:29 | PDIAF ---
- Diagnosis Code Status: Full Code - Medication Management Discharge Medications: Medications to Continue on Transfer Gabapentin [Neurontin 300 MG (*)] 600 mg PO HS 04/30/15 [Last Taken 12/04/16] PARoxetine HCL [Paxil] 40 mg PO DAILY 04/30/15 [Last Taken 12/04/16 08:00] clonazePAM [klonoPIN (*)] 2 mg PO DAILY@17 04/30/15 [Last Taken 12/04/16 17:00] Esomeprazole Magnesium 80 mg PO DAILY 08/26/16 [Last Taken 12/04/16 08:00] Ranitidine HCl 150 mg PO BID PRN 08/26/16 [Last Taken 12/04/16 21:00] traZODone [traZODONE 50MG (*)] 50 - 150 mg PO HS 08/26/16 [Last Taken 12/04/16 21:00] Methocarbamol [Robaxin 500 mg (*)] 500 mg PO HS 12/05/16 [Last Taken 12/04/16 21 :00] clonazePAM [klonoPIN (*)] 3 mg PO HS 12/05/16 [Last Taken 12/04/16 21:00] diphenhydrAMINE [Benadryl 25 MG (*)] 200 mg PO DAILY 12/05/16 [Last Taken 08:00] metFORMIN HCL [Glucophage 850 mg (*)] 850 mg PO BIDMEAL #60 tab 12/13/16 [Last Taken Unknown] predniSONE 60 mg PO DAILY #30 tablet 12/13/16 [Last Taken Unknown] Ondansetron Odt [Zofran Odt 4 mg (*)] 4 mg PO Q6 PRN 12/18/16 [Last Taken Unknown] Amoxicillin/Clavulanate Pot [Augmentin 875 MG TAB (*)] 875 mg PO BID #14 tab [Last Taken Unknown] Carboxymethylcellulose 1% [Refresh Celluvisc (*)] 1 drop EACHEYE PRN PRN #0 droperette 12/24/16 [Last Taken Unknown] Insulin Lispro [humALOG LISPRO 100 units/ml (*)] 2 - 10 unit SC TIDMEAL #0 unit 12/24/16 [Last Taken Unknown] Ondansetron Odt [Zofran Odt 4 mg (*)] 4 mg PO Q4HRS PRN #0 tab 12/24/16 [Last Taken Unknown] Polyethylene Glycol 3350 [Miralax 17 gm (*)] 17 gm PO DAILY PRN #0 pkt 12/24/16 [Last Taken Unknown] Sennosides/Docusate Sodium [Senokot-S] 1 - 2 tab PO BID #0 tab 12/24/16 [Last Taken Unknown] Thiamine HCl [Vitamin B-1] 100 mg PO DAILY #0 tab 12/24/16 [Last Taken Unknown] Discharge Medications: Refer to the Discharge Home Medication list for PRN reason. 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
--- NOTE | 2016-12-24 14:30 | PDDCSUM ---
Discharge Summary Discharge Summary: Dates of service: 12/18-12/24 Discharge dx: # rhabdo # todd # vasculitis # transaminitis # acute encephalopathy # etoh abuse # tylenol overdose # aspiration pna Hospital course by problem: # rhabdo: ck and cr trending down, resolved # TODD: ATN from rhabdo +/- prerenal , resolved with IVF, appreciate renal input # transaminitis: in setting of prolonged tylenol use and likely shock liver, s/ p NAc, TA have been trending down, continue to trend # ?tylenol toxicity: completed course of NAc not one discrete ingestion but ongoing # acute encephalopathy: improving, multifactorial. janice some withdrawal contributing. # urinary retention: attempted to dc rodrigez but continues to have urinary retention, rodrigez replaced and dc'ed again today, monitoring # vasculitis: exact diagnosis remains uncertain continue steroids, f/u with [place] # ? aspiration: small RLL infiltrate on personal review of cxr noted to have small infiltrate, initially tx'ed with ertapenam and dc on augmentin proph: sc heparin DC to SNF Meds: see EHR f/u with Rheumatology, wound care to be continued at SNF > 35 minutes spent in dc more than half in coordination of care
[2016-12-24] MEDS ORDERED: ONDANSETRON DISINTEGRATING 4 MG TAB PO PRN (16:35)
[2016-12-24] MEDS ORDERED: NON-FORMULARY NEW DRUG (Ranitidine Hcl [Ranitidine Hcl] 150 MG) PO PRN (16:35)
[2016-12-24] MEDS ORDERED: metFORMIN HCL 850 MG TAB PO SCH (18:00)
[2016-12-24] MEDS ORDERED: clonazePAM 1 MG TAB PO SCH (21:00)
[2016-12-24] MEDS ORDERED: GABAPENTIN 300 MG CAP PO SCH (21:00)
[2016-12-25] MEDS ORDERED: NON-FORMULARY NEW DRUG (Paroxetine Hcl [Paxil] 40 MG) PO SCH (09:00)
== END 2016-12-24 16:35 | DRG 917 ==
LOC: F2N 17:01 → F3N 12-23 15:07
PROVIDERS: ADMIT Internal Medicine; ATTEND Internal Medicine
PROC: 02HV33Z Insertion of Infusion Device into Superior Vena Cava, Percutaneous Approach (ICD-10-PCS; 2016-12-19)
PROC: 0H9GXZZ Drainage of Left Hand Skin, External Approach (ICD-10-PCS; principal; 2016-12-24)
DX: T40.2X1A Poisoning by other opioids, accidental (unintentional), initial encounter (principal); T42.4X1A Poisoning by benzodiazepines, accidental (unintentional), initial encounter; R40.0 Somnolence; M62.82 Rhabdomyolysis; N17.0 Acute kidney failure with tubular necrosis; E87.5 Hyperkalemia; E87.1 Hypo-osmolality and hyponatremia; J69.0 Pneumonitis due to inhalation of food and vomit; R74.0 Nonspecific elevation of levels of transaminase and lactic acid dehydrogenase [LDH]; R33.9 Retention of urine, unspecified; E87.6 Hypokalemia; E83.30 Disorder of phosphorus metabolism, unspecified; S60.522A Blister (nonthermal) of left hand, initial encounter; W18.39XA Other fall on same level, initial encounter; Y92.019 Unspecified place in single-family (private) house as the place of occurrence of the external cause; Y99.8 Other external cause status; I77.6 Arteritis, unspecified; I99.8 Other disorder of circulatory system; E09.9 Drug or chemical induced diabetes mellitus without complications; K21.9 Gastro-esophageal reflux disease without esophagitis; F41.9 Anxiety disorder, unspecified
CPT/HCPCS: 80307; 82947-QW; 86255-90; 92523-GN; 92610-GN; 96365; 96366; 97116-GP; 97162-GP; 97166-GO; 97532-GO; 97535-GO; C1751; G0480; G9165-GN-CL; G9166-GN-CJ; G9167-GN-CL; J0132; J0360; J0610; J1335; J1815; J2310; J2997; J3475

== ENCOUNTER 2016-12-26 15:30 | Inpatient (IN) | payer OTHER ==
[~2016-12-26 15:30] MED LIST: CLINDAMYCIN 900 MG/DEXTROSE 50 ML IV SCH
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
[2016-12-26] MEDS ORDERED: VANCOMYCIN HCL/NORMAL SALINE 250 ML IV ONE (15:53)
[2016-12-26] MEDS ORDERED: ERTAPENEM 1 GM in NS 100 ML IV ONE (15:56)
[2016-12-26 17:19] LABS: ABSOLUTE IMMATURE GRANULOCYTES 0.13 10^3/uL (0.00-0.10); ADD DIFF? NO; ADD MORPH? NO; ADD SCAN? NO; ATYPICAL LYMPHOCYTE FLAG 10 (0-99); FRAGMENT RBC FLAG 0 (0-99); HEMATOCRIT 33.1 % (40.0-51.0); HEMOGLOBIN 11.3 g/dL (13.7-17.5); LEFT SHIFT FLG 0 (0-99); LIPEMIA HEMOLYSIS FLAG 90 (0-99); MEAN CELL HEMOGLOBIN 32.8 pg (27.9-34.1); MEAN CELL HEMOGLOBIN CONCENTR. 34.1 g/dL (32.4-36.7); MEAN CELL VOLUME 95.9 fL (81.5-99.8); MEAN PLATELET VOLUME 10.6 fL (8.7-11.7); PLATELET CLUMPS FLAG 0 (0-99); PLATELET COUNT 256 10^3/uL (150-400); RED BLOOD CELL COUNT 3.45 10^6/uL (4.40-6.38); RED CELL DISTRIBUTION WIDTH 14.8 % (11.5-15.2)
[2016-12-26 17:27] LABS: INR 1.1 (0.83-1.16); PROTIME(PATIENT) 14.1 SEC (12.0-15.0)
[2016-12-26 17:28] LABS: APTT 28.2 SEC (23.0-38.0)
--- NOTE | 2016-12-26 18:08 | GCON ---
[f rep st] CONSULTATION DATE OF CONSULTATION: 12/26/2016 REFERRING PHYSICIAN: Chavo Mcintosh MD REASON FOR EVALUATION: Possible necrotizing fasciitis. HISTORY OF PRESENT ILLNESS: 56-year-old male with a recently diagnosed presumptive vasculitis. Patient presented to the hospital in November with concerns of new toe ischemia. Extensive workup, including CT angiography and traditional angiography, was performed at that time. The working diagnosis was a possible small-vessel vasculitis. The patient had been on steroids, and anticoagulants which were subsequently stopped. The patient was discharged, and readmitted with a fall and associate traumatic brain injury with rhabdomyolysis. He was discharged from hospitalization on that visit to [facility]. He returns today with complaints of worsening left arm swelling and pain. He denies specific fevers or chills. He denies chest pains or shortness of breath. He denies abdominal complaints. He denies right upper extremity complaints. He has no lower extremity concerns at this time. PAST MEDICAL HISTORY: Hypertension, depression, dyspepsia, probable vasculitis , sciatica. PAST SURGICAL HISTORY: None. MEDICATIONS: Humalog, Senokot, thiamine, Augmentin, Paxil, Klonopin, Neurontin , esomeprazole, trazodone, Robaxin, prednisone, metformin. ALLERGIES: Listed as Keflex. SOCIAL HISTORY: Patient is . ROS: Significant for recent diarrhea and above extremity complaints. 10 point review otherwise negative. PHYSICAL EXAMINATION: VITAL SIGNS: Temperature 37, blood pressure 150/110, pulse 100, respirations 16. GENERAL APPEARANCE: The patient is alert, appropriate, comfortable. EYES: Anicteric. NECK: No cervical or supraclavicular lymphadenopathy. HEART: Regular, without murmurs. LUNGS: Clear bilaterally. ABDOMEN: Soft, nontender, nondistended. No pulsatile masses. EXTREMITIES: Bilateral extremities with clean and dry gangrene of multiple distal digits. No erythema, and minimal swelling. No tenderness. Left upper extremity with a large palmar blister, which was debrided. Areas of partial-thickness skin ischemia are present, with a notable palmar, as well as forearm swelling. Areas of purpura-type changes are noted on the left volar forearm. This does not appear to be cellulitic. No crepitus was present. No weeping is present, and bounding radial and ulnar pulses present bilaterally. PROCEDURE: The right upper extremity was assessed with bedside ultrasound. The cephalic vein was completely thrombosed. The basilic vein was patent and present, as were paired brachial veins. The basilic vein was initially cannulated with an Angiocath under direct ultrasound guidance. With arm movement, the catheter was unfortunately not long enough and subsequently extravasated. A longer catheter was used to directly cannulate the brachial vein under direct ultrasound guidance. This occurred uneventfully. LABORATORY DATA: INR 1.1. White count 13, hemoglobin 11, platelets of 260. Electrolytes within reference range. IMPRESSION: Left arm pain and swelling, and known underlying vasculitis. Patient with a normal macrovascular examination, with bounding radial and ulnar pulses, and no evidence of distal tip ischemia. Query possible septic phlebitis versus cellulitis versus ongoing vasculitis. PLAN: The patient will be admitted to the Hospitalist service. Empiric antibiotics have been re-initiated. A bedside ultrasound is currently in process for further venous assessment. I do not feel that the patient requires surgical exploration, as given a low probability for a necrotizing soft tissue infection. CDif has been ordered by the primary service. Will plan to follow with you. /[id number]/MODL MTDD
[2016-12-26 18:24] LABS: ANION GAP 9 mEq/L (8-16); BILIRUBIN,TOTAL 0.9 mg/dL (0.1-1.4); CALCIUM 8.5 mg/dL (8.5-10.4); CARBON DIOXIDE 24 mEq/l (22-31); CHLORIDE 105 mEq/L (97-110); CREATININE 0.8 mg/dL (0.7-1.3); GLOMERULAR FILTRATION RATE > 60; GLUCOSE 83 mg/dL (70-100); POTASSIUM 3.8 mEq/L (3.5-5.2); SODIUM 138 mEq/L (134-144)
[2016-12-26] MEDS ORDERED: IOPAMIDOL (ISOVUE-300) 100 ML BTL IV ONE (18:37)
[2016-12-26] MEDS: CLINDAMYCIN 900 MG/DEXTROSE 50 ML IV ONE ×2 (18:48→19:01)
[2016-12-26] MEDS ORDERED: HYDROmorphONE/DILAUDID 1 MG/ML SYR IVP PRN (18:52)
[2016-12-26] MEDS ORDERED: ONDANSETRON DISINTEGRATING 4 MG TAB PO PRN ×2 (18:52→18:57)
[2016-12-26] MEDS ORDERED: PROMETHAZINE HCL 25 MG TAB PO PRN (18:52)
[2016-12-26] MEDS ORDERED: ONDANSETRON 4 MG/2 ML VIAL IVP PRN (18:52)
[2016-12-26] MEDS ORDERED: LORazepam 2 MG/ML INJ IVP PRN (18:52)
[2016-12-26] MEDS ORDERED: D50W 25 GM/50 ML SYR IVP PRN (18:57)
[2016-12-26] MEDS ORDERED: POLYETHYLENE GLYCOL 3350 17 GM PKT PO PRN (18:57)
[2016-12-26] MEDS ORDERED: CARBOXYMETHYLCELLULOSE 1% 0.4 ML DROPERETTE EACHEYE PRN (18:57)
[2016-12-26] MEDS ORDERED: hydrALAZINE 20 MG/ML VIAL IVP PRN (19:15)
--- NOTE | 2016-12-26 19:58 | GHP ---
[f rep st] HISTORY AND PHYSICAL DATE OF ADMISSION: 12/26/2016 CHIEF COMPLAINT: Left upper extremity swelling and pain. HISTORY: This is a 56-year-old male who has had a recently prolonged and complicated medical course here at this hospital discharged 2 days ago, returning with worsening pain, swelling of his left up per extremity. He was initially admitted on 12/05 of this year with acute onset of bilateral digita l ischemia of his feet, that after extensive workup, including CT angiogram, echocardiogram and cons ultations with rheumatology, oncology, infectious disease and general surgery, was ultimately though t to be some sort of vasculitis, not otherwise specified. He had involvement of his bilateral upper extremities, as well and at the last hospitalization, had a very large hematoma present on his left palm, which was incised and drained. He also had evidence of rhabdomyolysis and acute encephalopat hy during his last hospitalization in the setting of an alcohol binge according to his , along w ith daily use of Percocets and associated Tylenol toxicity. His mental status improved somewhat. H e notes he has not gotten back to his normal baseline, which prior to this current illness per his r eport, was relatively normal. Though his somewhat disagrees with that. He did discharge from this last hospitalization to SNF with plans to follow up with Dr. Mcpherson. Shortly after presentati on to SNF, he developed pain and swelling of his left upper extremity. He described it as feeling a s if it was pumped full of air. He also noted streaking along the forearm. He has also had diarrhe a. He has limited mobility in his left hand secondary to significant swelling. PAST MEDICAL HISTORY: 1. Previous MSSA infection of right hand. 2. Vasculitis as per HPI, NOS. 3. Hypertension. 4. Depression. 5. Sciatica. 6. GERD. 7. Alcohol abuse. PAST SURGICAL HISTORY: Recent I and D of his left palm, otherwise none. SOCIAL HISTORY: Patient is . 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 He initiall y denied drinking, but then his confirmed that he does drink heavily intermittently. FAMILY HISTORY: This is significant for a father of sepsis and mother who of breast cance r. REVIEW OF SYSTEMS: A 10-point review of systems obtained and negative, except as per HPI. MEDICATIONS: 1. MiraLAX. 2. Trazodone. 3. Senna. 4. Thiamine. 5. Zofran. 6. Insulin. 7. Klonopin. 8. Augmentin. PHYSICAL EXAMINATION: VITAL SIGNS: BP 188/102, heart rate 68, respiratory rate 16, O2 sats 98% on room air. Temperature is 36.9. GENERAL APPEARANCE: This is a disheveled man. He is awake and aler t. He is anxious. EYES: Anicteric. HENT: Oropharynx clear. CARDIOVASCULAR: Regular rate and r hythm, no MRG. PULMONARY: CTA bilaterally. Normal work of breathing. ABDOMEN: Soft, nontender. Positive bowel sounds. EXTREMITIES: Left upper extremity tense and erythematous to the elbow with limited range of motion in the hand and a wet draining lesion in his palm. He has scattered ecchym oses throughout both upper and lower extremities, continued black eschar to the bilateral toes. He has bilateral lower extremity pitting edema. SKIN: Pale, warm throughout, otherwise, changes as pe r above. NEURO/PSYCH: Patient is oriented. He is anxious and somewhat tangential, but significant ly more appropriate than he has been on previous hospitalizations. CLINICAL DATA: Labs reviewed. Significant for a white blood cell count of 12.9, hematocrit of 33.1 , platelets are 256. Coags are within normal limits. Lactic acid is 1.1. Chemistry is unremarkabl e. Creatinine is 0.8. Extremity venous ultrasound study of the upper extremity was performed and s hows no evidence of DVT. ASSESSMENT AND PLAN: This is a 56-year-old man with a recent complicated medical course consisting of a new diagnosis of presumed vasculitis with digital ischemia and diffuse skin lesions including a large palmar hematoma that was recently drained presenting back with what appears to be significant infection of the left upper extremity concerning for necrotizing fasciitis. 1. Cellulitis left upper extremity. Again, this has certainly features that are concerning for nec rotizing fasciitis and/or compartment syndrome. Skin on this hand is tense with draining wound from the palm. General surgery has been consulted and will follow, but does not feel that he requires a surgical evaluation at this point. Will add CK, ESR, and CRP to his labs and obtain a CT with cont rast of that extremity to look for gas, etc. Wound care will be involved. He has been started on a ntibiotics in the emergency room including clindamycin, ertapenem and vancomycin. I will continue c lindamycin, but will add pseudomonal coverage in place of ertapenem. 2. Vasculitis. Again, this initially presented in November of this year with bilateral ischemic ch anges to the toes. He has been evaluated by multiple specialists and ultimately felt to be secondar y to vasculitis, for which, he was treated with steroids. I will resume IV steroids. He likely cou ld transition back to orals at the time of discharge with plan to follow up with Dr. Mcpherson. Again , I am somewhat uncertain if this is the true diagnosis given very unusual presentation and course. Will re-consult ID and again, general surgery has been consulted and will remain involved. Will al so check fibrinogen and D-dimer to further evaluate for abnormalities in clotting cascade. 3. Acute encephalopathy. Again, this has been an issue on prior hospitalizations, though it does a ppear to be improved and is certainly not back to baseline. He has recently undergone brain MRI apolinar t was unrevealing. He initially denied any history of drug or alcohol abuse, but his did later confirm that this has been an issue. Query, if his last hospitalization was complicated by vianney aram. He has been in the hospital and then in a SNF, so unlikely that he has been able to obtain alc ohol, etc., but will obtain a U-tox just in case. He does not have any new or focal neurologic find ings. So, will defer further imaging at this point. I do not believe that neurology has seen him i n the past and I will ask for them to consult in the morning in case there is anything that they cou ld add. 4. Hypertension. I suspect this is secondary to pain and anxiety. Will treat with p.r.n. hydralaz ine for the time being and continue to monitor. 5. Diarrhea. Checking C difficile. Certainly at high risk given ongoing antibiotic use. 6. Disposition: Inpatient status. Given the severity of his presenting issues, he will need great er than 48 hours stay for evaluation and management of above. Patient is new to my care. Old records reviewed and summarized as per HPI and past medical history. Care plan reviewed with Dr. Mcintosh in the Emergency Department, including plans for surgical cons ultation and antibiotic treatment. Also, reviewed plans for CT imaging. /[id number]/MODL
[2016-12-26 20:02] LABS: SEDIMENTATION RATE 9 MM/HR (0-20)
[2016-12-26 20:04] LABS: C-REACTIVE PROTEIN 20.6 mg/L (<10.0)
[2016-12-26 20:20] LABS: CK-MB INTERPRETATION NEGATIVE (NEGATIVE)
[2016-12-26] MEDS ORDERED: NS 1,000 ML IV SCH (21:20)
[2016-12-26] MEDS: traZODone 50 MG TAB PO SCH (21:26)
[2016-12-26] MEDS: oxyCODONE IR 5 MG TAB PO PRN (21:27)
[2016-12-26] MEDS: clonazePAM 1 MG TAB PO SCH (21:31)
[2016-12-26] MEDS: VANCOMYCIN 1.25 GM in D5W 250 ML IV SCH (23:11)
[2016-12-26] MEDS: SENNOSIDES 1 TAB PO SCH (23:11)
[2016-12-26] MEDS ORDERED: LORazepam 0.5 MG TAB PO PRN (23:15)
[2016-12-26 23:24] LABS: COLOR YELLOW; LEUKOCYTE ESTERASE,URINE NEGATIVE (NEGATIVE); NITRITE,URINE NEGATIVE (NEGATIVE)
[2016-12-26 23:32] LABS: RBC,URINE 15-25 /hpf (0-3)
[2016-12-27] MEDS ORDERED: PIPERACILLIN/TAZO 3.375 GM/DEX 50 ML IV SCH
[2016-12-27] MEDS: PIPERACILLIN SODIUM/TAZOBACTAM 3.375 GM in D5W 50 ML IV SCH ×3 (00:59→14:18)
[2016-12-27 01:46] LABS: PHENCYCLIDINE URINE BCH < 6 ng/ml (NEGATIVE); PHENCYCLIDINE URINE BCH NEGATIVE (NEGATIVE); TETRAHYDROCANNABINOL URINE < 5 ng/mL (NEGATIVE); TETRAHYDROCANNABINOL URINE NEGATIVE (NEGATIVE)
[2016-12-27 05:04] LABS: % IMMATURE GRANULYOCYTES 1.3 % (0.0-1.1); ABSOLUTE IMMATURE GRANULOCYTES 0.13 10^3/uL (0.00-0.10); ADD DIFF? NO; ADD MORPH? NO; ADD SCAN? NO; ATYPICAL LYMPHOCYTE FLAG 10 (0-99); FRAGMENT RBC FLAG 0 (0-99); HEMATOCRIT 32.8 % (40.0-51.0); HEMOGLOBIN 10.8 g/dL (13.7-17.5); LEFT SHIFT FLG 10 (0-99); LIPEMIA HEMOLYSIS FLAG 80 (0-99); MEAN CELL HEMOGLOBIN 31.4 pg (27.9-34.1); MEAN CELL HEMOGLOBIN CONCENTR. 32.9 g/dL (32.4-36.7); MEAN CELL VOLUME 95.3 fL (81.5-99.8); MEAN PLATELET VOLUME 10.5 fL (8.7-11.7); PLATELET CLUMPS FLAG 10 (0-99); PLATELET COUNT 248 10^3/uL (150-400); RED BLOOD CELL COUNT 3.44 10^6/uL (4.40-6.38); RED CELL DISTRIBUTION WIDTH 14.7 % (11.5-15.2)
[2016-12-27 05:23] LABS: ANION GAP 5 mEq/L (8-16); CALCIUM 8.1 mg/dL (8.5-10.4); CARBON DIOXIDE 23 mEq/l (22-31); CHLORIDE 109 mEq/L (97-110); CREATININE 0.7 mg/dL (0.7-1.3); GLOMERULAR FILTRATION RATE > 60; GLUCOSE 95 mg/dL (70-100); POTASSIUM 3.8 mEq/L (3.5-5.2); SODIUM 137 mEq/L (134-144)
[2016-12-27] MEDS: CLINDAMYCIN 900 MG/DEXTROSE 50 ML IV SCH ×2 (05:44→14:52)
--- NOTE | 2016-12-27 07:37 | SOAPPROG ---
SOAP Progress Note Assessment/Plan: Assessment:no overnight issues. pain slightly better. CT - no gas - myositis noted. Afebrile. left arm swelling unchanged. tenderness and erythema better. palmar skin pink, viable. distal finger tip ischemia unchanged. toes with clean, dry gangrene. WBC 10. LUE pain and swelling secondary to myositis - no evidence of necrotizing soft tissue infection. upper and lower digit ischemia stable. cont abx/steroids/supportive care. no role for drainage needed at this time. Plan: 12/27/16 07:36 12/27/16 07:42 Objective: Vital Signs Temp Pulse Resp BP Pulse Ox 36.5 C 69 16 146/79 H 94 12/27/16 05:36 12/27/16 05:36 12/27/16 05:36 12/27/16 05:36 12/27/16 05:36 Laboratory Results 12/27/16 04:28 12/27/16 04:28 12/26/16 12/27/16 12/28/16 05:59 05:59 05:59 Intake Total 1182 500 Output Total 535 1000 Balance 647 -500 PT 14.1 SEC (12.0-15.0) 12/26/16 17:00 INR 1.10 (0.83-1.16) 12/26/16 17:00 ICD10 Worksheet Patient Problems: Problems Problem Status Onset Hyperkalemia Acute Ischemic toe Acute Renal failure Acute Skin lesion Acute Tylenol overdose Acute
--- NOTE | 2016-12-27 08:00 | HOSPPROG ---
Hospitalist Progress Note Assessment/Plan: #LUE cellulitis: no e/o gas on CT. Palmar blister was aspirated. Cont Ertapenem , Clinda. TTE 12/06 with no endocarditis #Acute on chronic encephalopathy: oriented today. Most recent MRI (12/07) unremarkable. Appreciate Neurology consult; no acute findings at this point. If becomes more confused, will check MRI. Etoh had played a role in prior admission. UA and tox screen negative #Vasculitis NOS: unusual given normal complements, RF, DAVDI, ANCA. Have call out to Dr. Mcpherson to discuss care. IV Solumedrol was started here. #Diarrhea: C diff pending #Accelerated HTN: pain playing a role. #RUE swelling: PIV infiltrated. Warm compresses. Will place PICC line #Normocytic anemia: H/H stable #h/o Etoh abuse: denies current use. #Hyperglycemia: due to steroids; PRN SSI #DVT ppx: Lovenox #Diet: regular #Disp: warrants inpt admission given acute cellulitis warranting IV abx This patient is new to my care. I have reviewed progress notes, imaging and labs from prior admission. # Subjective: pain in RUE due to swelling Objective: Vital Signs Temp Pulse Resp BP Pulse Ox 36.4 C 72 16 147/88 H 97 12/27/16 07:40 12/27/16 07:40 12/27/16 07:40 12/27/16 07:40 12/27/16 07:40 Laboratory Results 12/27/16 04:28 12/27/16 04:28 12/26/16 12/27/16 12/28/16 05:59 05:59 05:59 Intake Total 1182 500 Output Total 535 1000 Balance 647 -500 PT 14.1 SEC (12.0-15.0) 12/26/16 17:00 INR 1.10 (0.83-1.16) 12/26/16 17:00 - Physical Exam Constitutional: no apparent distress, other (anxious, talkative) Eyes: PERRL Ears, Nose, Mouth, Throat: other (left temporal with mild swelling. Brusing along ear and behind it) Cardiovascular: regular rate and rhythym Respiratory: no respiratory distress Gastrointestinal: normoactive bowel sounds, soft, non-tender abdomen Genitourinary: no bladder fullness Skin: other Musculoskeletal: other (RUE swollen, no erythema or rash. LUE wrapped. All toes black with eschar) Neurologic: AAOx3, CN II-XII Intact, other (decreased sensation to touch over toes and left fingers) Psychiatric: other (anxious) ICD10 Worksheet Patient Problems: Problems Problem Status Onset Skin lesion Acute Ischemic toe Acute Tylenol overdose Acute Renal failure Acute Hyperkalemia Acute
[2016-12-27] MEDS: SENNOSIDES 1 TAB PO SCH ×2 (08:29→23:08)
[2016-12-27] MEDS: THIAMINE HCL 100 MG TAB PO SCH (08:29)
[2016-12-27] MEDS: VANCOMYCIN 1.25 GM in D5W 250 ML IV SCH ×2 (08:29→21:54)
[2016-12-27] MEDS: ENOXAPARIN 40 MG/0.4 ML SYR SC SCH (08:30)
[2016-12-27] MEDS: oxyCODONE IR 5 MG TAB PO PRN ×2 (08:56→17:44)
[2016-12-27] MEDS: INSULIN LISPRO 100 UNIT/ML SC SCH ×3 (08:56→18:21)
--- NOTE | 2016-12-27 11:26 | WOCRNPDOC ---
WOCRN Advanced Assessment Note - Skin Integrity Problem, Advanced Assess Left Palm Dressing Type: Manuel Bandage Dressing Description: Clean/Dry, Intact Exudate Amount: Minimal Exudate Characteristic(s): Bloody Integumentary Issue Intervention: Dressing Changed Skin Integrity Problem Comment: Various small openings in palm and skin between thumb and forefinger. Cleaned with ns flush. Covered wound with hydrofera blue foam and rewrapped with Manuel. Right Second Knuckle Dressing Type: Open to Air Exudate Amount: None Integumentary Issue Intervention: Dressing Applied, Dressing Initialed & Dated Wound Bed Constitution: Granulation Tissue Site Measurement - Head-to-Toe Length X Width X Depth (cm): 3.2x1.4x0.3 Skin Integrity Problem Comment: Cleaned with ns flush. Lipoderm gel to wound bed. Covered with hydrofera blue ready and attached with steri strips and tegaderm. Right Medial Hand Dressing Type: Open to Air Integumentary Issue Intervention: Dressing Applied, Dressing Initialed & Dated Wound Bed Color: Brown, Yellow Site Measurement - Head-to-Toe Length X Width X Depth (cm): 0.5x0.5x0 Skin Integrity Problem Comment: Cleaned with ns flush. Lipoderm gel to wound bed. Covered with replicare. Bilateral Toes Dressing Type: Open to Air Linda Wound Tissue: Erythema Wound Bed Constitution: Stable Eschar Skin Integrity Problem Comment: Various necrotic areas on tips of toes. No drainage noted at this time. Need to keep toes seperated. [place] with betadine BID.
[2016-12-27] MEDS ORDERED: ALTEPLASE 2 MG VIAL IVP PRN (11:45)
--- NOTE | 2016-12-27 15:40 | PCMIDPN ---
Assessment/Plan: Assessment/Plan: * Left upper extremity cellulitis associated with palmar wound: Lymphangitis has resolved on exam. Some residual violaceous hue to anterior forearm with no residual erythema present. Most likely this will be due to gram-positive silverio based on presence of lymphangitis. Will continue vancomycin and clindamycin. Will discontinue Zosyn. Follow clinical response to above measures. 12/27/16 15:37 Subjective: Patient seen by our service on prior admission for skin changes due to either vasculitis or thrombosis. Treated with 4 days of empiric vancomycin and cefepime during his hospitalization. Now readmitted with left arm swelling, pain, and erythematous streaking associated with blister over palmar aspect of hand. He describes having concomitant fever and chills at half-way facility. He has been empirically treated with vancomycin, clindamycin and Zosyn. CT scan with some changes of myositis present. Surgical consultation reviewed. He notes that erythematous streaks have resolved and tenderness markedly decreased. Objective: Vital Signs Temp Pulse Resp BP Pulse Ox 37.0 C 93 18 138/84 H 97 12/27/16 12:00 12/27/16 12:00 12/27/16 12:00 12/27/16 12:00 12/27/16 12:00 Laboratory Results 12/27/16 04:28 12/27/16 04:28 12/26/16 12/27/16 12/28/16 05:59 05:59 05:59 Intake Total 1182 500 Output Total 535 1400 Balance 647 -900 ESR 9 MM/HR (0-20) 12/26/16 17:00 C-Reactive Protein 20.6 mg/L (<10.0) H 12/26/16 17:00 Vancomycin # 1 Zosyn # 1 Clindamycin # 1 Blood cultures x2 pending CT scan as outlined in subjective - Physical Exam General Appearance: alert, no apparent distress EENT: No scleral icterus, No conjunctival petechiae Respiratory: lungs clear, No respiratory distress Cardiac/Chest: regular rate, rhythm Extremities: inflammation (Left upper extremity with edema most prominent over forearm, hand and wrist; denuded blister on palmar aspect of wrist without purulence; violaceous linear hue on anterior forearm extending from base of wrist; no lymphangitis noted; area nontender without focal fluctuance or crepitus) Abdomen: non-tender, No distended Skin: other (Dry gangrenous changes over feet bilaterally) ICD10 Worksheet Patient Problems: Problems Problem Status Onset Hyperkalemia Acute Ischemic toe Acute Renal failure Acute Skin lesion Acute Tylenol overdose Acute
--- NOTE | 2016-12-27 16:11 | GCON ---
[f rep st] CONSULTATION NEUROLOGY CONSULTATION. REFERRING PHYSICIAN: Karson Marin MD BILLING INFORMATION: 70 minutes of floor time today; over 50% was spent in counseling the patient and coordination of care. CHIEF COMPLAINT: Encephalopathy. HISTORY OF PRESENT ILLNESS: Mr. Bermeo is a very pleasant 56-year-old gentleman who has a fairly complex medical history that began on December 05, 2016, well documented in our electronic health record. Essentially, he initially had some right wrist infection a week prior to his initial admission, treated with I and D and a drain that was apparently put in place. The patient states that the day of admission, he woke up with "black toes." He also had some spots on his fingers. Indeed, on admission, he had black ischemic looking toes bilaterally and some blisters on his fingers. He had an extensive evaluation including echocardiography which did not show any endocarditis. It was thought he may be having some sort of vasculitis. He was treated with anticoagulation and steroids and improving. He was then readmitted on December 17, just 9 days ago with altered mental status. His told providers at that time, he had been taking higher doses of the Percocet prescribed upon his initial discharge along with "binge drinking". The patient tells me he did not binge drink and that he cannot drink much due to his reflex. He states he did take more Percocet than "he should have" and that he had fell due to the high dose of narcotics, and that he may have had a concussion in addition to some overdose symptoms. He also admits misusing opiates around 2005, buying Percocets from coworkers and using them to "chill out" at the end of the night. He now is readmitted for increasing arm pain and swelling, and his mental status has resolved and is back to baseline this afternoon. He had some confusion last evening during admission. REVIEW OF SYSTEMS: A 10-point review of systems was done and pertinent to the HPI. PAST MEDICAL HISTORY: 1. Query vasculitis, NOS as above. 2. Query recreational opiate use in the past. 3. Reflux. MEDICATIONS: Per EHR. SOCIAL HISTORY: The patient has a vast work experience and educational experience. 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 He is . FAMILY HISTORY: No history of autoimmune diseases. PHYSICAL EXAM: The patient is awake and alert. He is in no distress. No meningismus on exam. He has a blood pressure 138/84, temperature 36.4, respirations 16. His mental status: He can name 5/5, follow commands 5/5, repeat 5/5. He is lucid and talkative. He gave me a detailed work and education history. He is oriented to politics and detail, place, history. He has no obvious cognitive or mental status abnormalities when I speak to him. He is certainly verbose regarding that he has no problems with alcohol. Cranial nerve exam is normal 2 through 7. He has no focal weakness; however, some of the exam is limited due to his wounds. Reflexes are normal. Sensory exam outside of his wounds are normal. He does have sensory deficits in the area of his ischemia. Coordination is normal. IMPRESSION/PLAN: 1. Toxic metabolic encephalopathy, resolved. 2. 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 3. Query vasculitis, not otherwise specified. In regard to patient's mental status, he is back to baseline. I wonder if he was using more opiate pain medication than was instructed. He does endorse using opiates recreationally in the past. He denies excessive alcohol use to me now. The social history is not entirely clear. He has no meningismus or fevers now. He had an MRI brain on 12/07/2016 which showed no evidence of DIGITAL RECRUITER vasculitis; i.e., he had no diffusion weighted abnormalities or small acute infarcts typically seen with cerebrovasculitic processes. The case was discussed at great length with the patient and his primary hospitalist, Dr. Tovar. At this point, I think he had some toxic metabolic encephalopathy which has resolved as he is back to his baseline. If he has any decline in neurologic function, the next step would be to repeat a brain MRI with and without contrast and contact the Neurology Service for reassessment. We will make further recommendations at that time accordingly. Otherwise, we will continue to follow the patient p.r.n. Thank you for this consultation. /[id number]/MODL OMARI
[2016-12-27] MEDS ORDERED: predniSONE 20 MG TAB PO SCH (17:00)
[2016-12-27] MEDS: clonazePAM 1 MG TAB PO SCH ×2 (17:31→21:53)
[2016-12-27] MEDS ORDERED: methylPREDNISolone SOD SUCC 125 MG/2 ML VIAL IVP SCH (19:01)
[2016-12-27 20:03] LABS: OCCULT BLOOD FECES NEGATIVE (NEGATIVE)
[2016-12-27 20:12] LABS: O/P DESCRIPTION SOFT BROWN STOOL; O/P DIRECT NONE SEEN (NONE SEEN)
[2016-12-27] MEDS: traZODone 50 MG TAB PO SCH (21:54)
[2016-12-27] MEDS: ACETAMINOPHEN 325 MG TAB PO PRN (23:26)
[2016-12-28] MEDS: CLINDAMYCIN 600 MG/DEXTROSE 50 ML IV SCH ×3 (00:02→14:19)
[2016-12-28 05:15] LABS: % IMMATURE GRANULYOCYTES 1.1 % (0.0-1.1); ABSOLUTE IMMATURE GRANULOCYTES 0.11 10^3/uL (0.00-0.10); ADD DIFF? NO; ADD MORPH? NO; ADD SCAN? NO; ATYPICAL LYMPHOCYTE FLAG 20 (0-99); FRAGMENT RBC FLAG 0 (0-99); HEMATOCRIT 30.2 % (40.0-51.0); LEFT SHIFT FLG 10 (0-99); LIPEMIA HEMOLYSIS FLAG 80 (0-99); MEAN CELL HEMOGLOBIN 32.1 pg (27.9-34.1); MEAN CELL HEMOGLOBIN CONCENTR. 33.1 g/dL (32.4-36.7); MEAN CELL VOLUME 96.8 fL (81.5-99.8); MEAN PLATELET VOLUME 10.2 fL (8.7-11.7); PLATELET CLUMPS FLAG 0 (0-99); PLATELET COUNT 232 10^3/uL (150-400); RED BLOOD CELL COUNT 3.12 10^6/uL (4.40-6.38); RED CELL DISTRIBUTION WIDTH 14.7 % (11.5-15.2)
[2016-12-28 05:33] LABS: ANION GAP 6 mEq/L (8-16); CALCIUM 7.9 mg/dL (8.5-10.4); CARBON DIOXIDE 22 mEq/l (22-31); CHLORIDE 110 mEq/L (97-110); CREATININE 0.8 mg/dL (0.7-1.3); GLOMERULAR FILTRATION RATE > 60; GLUCOSE 97 mg/dL (70-100); POTASSIUM 4.1 mEq/L (3.5-5.2); SODIUM 138 mEq/L (134-144)
--- NOTE | 2016-12-28 08:15 | HOSPPROG ---
Hospitalist Progress Note Assessment/Plan: #LUE cellulitis: no e/o gas on CT. Palmar blister was aspirated. TTE 12/06 with no endocarditis. Appreciate ID consult. On Vanc/Clinda now, likely deescalate #Acute on chronic encephalopathy: intermittent per . Most recent MRI (12/07 ) unremarkable. Neurology consulted. If more confused, will check MRI. Etoh had played a role in prior admission. UA and tox screen negative #Vasculitis NOS: spoke with Dr. Mcpherson. 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 Start pred 40mg today for a month, then taper per [place] #Chronic immunosuppression: add Ca/Vit D for bone health and Bactrim for PCP ppx #Diarrhea: negative PCR #Accelerated HTN: pain playing a role. #RUE swelling: PIV infiltrated. Warm compresses. PICC line placed #Normocytic anemia: H/H stable #h/o Etoh abuse: denies current use. #Hyperglycemia: due to steroids; PRN SSI #DVT ppx: Lovenox #Diet: regular #Disp: warrants inpt admission given acute cellulitis warranting IV abx # Subjective: swelling improved in arm Objective: Vital Signs Temp Pulse Resp BP Pulse Ox 36.6 C 83 18 125/83 H 95 12/28/16 07:38 12/28/16 07:38 12/28/16 07:38 12/28/16 07:38 12/28/16 07:38 Microbiology 12/26/16 19:50 Gastrointestinal Tract Panel (PCR) - Final Stool No Organism Detected Fecal Leukocyte Stain - Final Laboratory Results 12/28/16 05:00 12/28/16 05:00 12/27/16 12/28/16 12/29/16 05:59 05:59 05:59 Intake Total 1182 2340 Output Total 535 2900 Balance 647 -560 PT 14.1 SEC (12.0-15.0) 12/26/16 17:00 INR 1.10 (0.83-1.16) 12/26/16 17:00 - Physical Exam Constitutional: no apparent distress Eyes: PERRL Ears, Nose, Mouth, Throat: moist mucous membranes Cardiovascular: regular rate and rhythym Respiratory: no respiratory distress, no rales or rhonchi Gastrointestinal: normoactive bowel sounds, soft, non-tender abdomen Genitourinary: no bladder fullness Musculoskeletal: other (RUE swelling much improved. LUE: less streaking. Palmar blister deroofed, no purulence. Eschar all toes ) Neurologic: CN II-XII Intact, other (more sensation to touch over left thumb, 1- 2nd digits) ICD10 Worksheet Patient Problems: Problems Problem Status Onset Hyperkalemia Acute Ischemic toe Acute Renal failure Acute Skin lesion Acute Tylenol overdose Acute
[2016-12-28] MEDS: INSULIN LISPRO 100 UNIT/ML SC SCH ×3 (08:36→18:52)
[2016-12-28] MEDS: VANCOMYCIN 1.25 GM in D5W 250 ML IV SCH (09:03)
[2016-12-28] MEDS: predniSONE 20 MG TAB PO SCH (09:03)
[2016-12-28] MEDS: THIAMINE HCL 100 MG TAB PO SCH (09:03)
[2016-12-28] MEDS: ENOXAPARIN 40 MG/0.4 ML SYR SC SCH (09:04)
[2016-12-28] MEDS: SENNOSIDES 1 TAB PO SCH ×2 (09:14→23:19)
[2016-12-28] MEDS: oxyCODONE IR 5 MG TAB PO PRN ×2 (10:02→17:28)
[2016-12-28] MEDS: CALCIUM CARB W/VIT D 500 MG TAB PO SCH ×2 (10:07→21:54)
[2016-12-28] MEDS ORDERED: SULFAMETHOX/TMP 800/160 MG 1 TAB PO ONE (10:36)
[2016-12-28] MEDS: SULFAMETHOX/TMP 800/160 MG 1 TAB PO SCH (11:38)
--- NOTE | 2016-12-28 15:18 | PCMIDPN ---
Assessment/Plan: 56 yo male who presented to ER about 1 month ago with ischemia of toes, subsequently found to have vasculitis vs thrombosis re-admitted for LUE cellulitis/lymphangitis #LUE cellulitis/lymphangitis/myositis, erythema now resolved with residual LUE swelling. Wound on L hand likely portal --dc clindamycin --continue vancomycin, vanco T 16 okay #Chronic Pred Use for vasculitis --Bactrim mwf # Diarrhea, stool PCR negaitve meds Vancomycin # 2 Clindamycin # 2 12/26 Blood cultures x2 ngtd Subjective: feels like arm is better Objective: Vital Signs Temp Pulse Resp BP Pulse Ox 36.4 C 87 18 163/81 H 97 12/28/16 12:00 12/28/16 12:00 12/28/16 12:00 12/28/16 12:00 12/28/16 12:00 Microbiology 12/26/16 19:50 Gastrointestinal Tract Panel (PCR) - Final Stool No Organism Detected Fecal Leukocyte Stain - Final Laboratory Results 12/28/16 05:00 12/28/16 05:00 12/27/16 12/28/16 12/29/16 05:59 05:59 05:59 Intake Total 1182 2340 540 Output Total 535 2900 Balance 647 -560 540 ESR 9 MM/HR (0-20) 12/26/16 17:00 C-Reactive Protein 20.6 mg/L (<10.0) H 12/26/16 17:00 - Physical Exam General Appearance: alert, no apparent distress EENT: scleral icterus Respiratory: lungs clear Neck: supple Cardiac/Chest: regular rate, rhythm Extremities: swelling (LUE ), necrosis (B distal toes), other (obvious unroofed ulcer vs superficial degloving palmar surface L hand), No erythema Abdomen: non-tender, soft Skin: No rash Neuro/Psych: alert, normal mood/affect, oriented x 3 - Line/s RUE PICC Lines: No drainage, No erythema - Time Spent With Patient Time Spent with Patient: greater than 25 minutes (talked to on phone) Time Spent with Patient: Greater than 25 minutes spent on this patients care, greater than 50% of time spent counseling, educating, and coordinating care regarding the above mentioned plan. ICD10 Worksheet Patient Problems: Problems Problem Status Onset Hyperkalemia Acute Ischemic toe Acute Renal failure Acute Skin lesion Acute Tylenol overdose Acute
[2016-12-28] MEDS: clonazePAM 1 MG TAB PO SCH ×2 (17:20→21:54)
--- NOTE | 2016-12-28 18:55 | SOAPPROG ---
SOAP Progress Note Assessment/Plan: Assessment: Good day today. Patient pleased with his progress. Patient with Manuel Wrap in place and elevated. Numbness in fingers/ thumb improving, now feeling pain in his left thumb- controlled with pain meds. He reports being up and ambulating today. 120/70's HR 80's WBC 9.8. Afebrile. Manuel wrap removed- erythema and edema improving. Palmar skin remains pink and viable. Distal finger tip ischemia present and unchanged. Lower digit ischemia unchanged. Plan: continue antibiotics, steroids and supportive care. No new changes today. Plan: 12/28/16 18:50 Objective: Vital Signs Temp Pulse Resp BP Pulse Ox 37 C 82 16 127/72 H 98 12/28/16 16:00 12/28/16 16:00 12/28/16 16:00 12/28/16 16:00 12/28/16 16:00 Microbiology 12/26/16 19:50 Gastrointestinal Tract Panel (PCR) - Final Stool No Organism Detected Fecal Leukocyte Stain - Final Laboratory Results 12/28/16 05:00 12/28/16 05:00 12/27/16 12/28/16 12/29/16 05:59 05:59 05:59 Intake Total 1182 2340 1040 Output Total 535 2900 Balance 647 -560 1040 PT 14.1 SEC (12.0-15.0) 12/26/16 17:00 INR 1.10 (0.83-1.16) 12/26/16 17:00 ICD10 Worksheet Patient Problems: Problems Problem Status Onset Hyperkalemia Acute Ischemic toe Acute Renal failure Acute Skin lesion Acute Tylenol overdose Acute
[2016-12-28] MEDS: traZODone 50 MG TAB PO SCH (21:53)
[2016-12-28] MEDS: VANCOMYCIN HCL/NORMAL SALINE 250 ML IV SCH (21:57)
[2016-12-29] MEDS: clonazePAM 1 MG TAB PO SCH (00:01)
[2016-12-29] MEDS: traZODone 50 MG TAB PO SCH (00:02)
[2016-12-29] MEDS: ACETAMINOPHEN 325 MG TAB PO PRN (02:20)
[2016-12-29 03:47] VITALS: O2SAT 97
[2016-12-29 05:41] LABS: % IMMATURE GRANULYOCYTES 0.5 % (0.0-1.1); ABSOLUTE IMMATURE GRANULOCYTES 0.07 10^3/uL (0.00-0.10); ADD DIFF? NO; ADD MORPH? NO; ADD SCAN? NO; ATYPICAL LYMPHOCYTE FLAG 10 (0-99); FRAGMENT RBC FLAG 0 (0-99); HEMATOCRIT 27.8 % (40.0-51.0); HEMOGLOBIN 9.4 g/dL (13.7-17.5); LEFT SHIFT FLG 0 (0-99); LIPEMIA HEMOLYSIS FLAG 90 (0-99); MEAN CELL HEMOGLOBIN CONCENTR. 33.8 g/dL (32.4-36.7); MEAN CELL VOLUME 94.6 fL (81.5-99.8); MEAN PLATELET VOLUME 10.3 fL (8.7-11.7); PLATELET CLUMPS FLAG 0 (0-99); PLATELET COUNT 259 10^3/uL (150-400); RED BLOOD CELL COUNT 2.94 10^6/uL (4.40-6.38); RED CELL DISTRIBUTION WIDTH 14.8 % (11.5-15.2)
[2016-12-29 05:52] LABS: ANION GAP 5 mEq/L (8-16); CALCIUM 8.8 mg/dL (8.5-10.4); CARBON DIOXIDE 24 mEq/l (22-31); CHLORIDE 106 mEq/L (97-110); CREATININE 0.8 mg/dL (0.7-1.3); GLOMERULAR FILTRATION RATE > 60; GLUCOSE 115 mg/dL (70-100); POTASSIUM 4.1 mEq/L (3.5-5.2); SODIUM 135 mEq/L (134-144)
--- NOTE | 2016-12-29 08:15 | HOSPPROG ---
Hospitalist Progress Note Assessment/Plan: #LUE cellulitis: no e/o gas on CT. Palmar blister was aspirated. TTE 12/06 with no endocarditis. Appreciate ID consult. Change to Augmentin at DC for 7 days #Acute on chronic encephalopathy: intermittent per . Most recent MRI (12/07 ) unremarkable. Neurology consulted, no further evaluation warranted. Etoh had played a role in prior admission. UA and tox screen negative #Vasculitis NOS: spoke with Dr. Mcpherson. 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 Start pred 40mg today for a month, then taper per [place] #Chronic immunosuppression: Ca/Vit D for bone health and Bactrim for PCP ppx #Diarrhea: negative PCR #Accelerated HTN: pain playing a role. #RUE swelling: resolved when IV pulled. Warm compresses. #Leukocytosis: stable #Normocytic anemia: H/H stable #h/o Etoh abuse: denies current use. #Hyperglycemia: due to steroids; PRN SSI #Deconditioning: PT recommends SNF placement #DVT ppx: Lovenox #Diet: regular #Disp: DC to [place] care Goals: I had extensive conversation with patient and (JAZMINE) today in regards to discharge. I understand their fear, but explained that he is clinically stable, no other interventions needed and can change to oral abx. He has FU with Dr. Carr and Dr. Mcpherson. I explained that he will be discharged today or tomorrow based on bed availability. She expressed understanding of this plan. # Subjective: swelling in left arm improved Objective: Vital Signs Temp Pulse Resp BP Pulse Ox 36.8 C 85 14 142/80 H 97 12/29/16 03:38 12/29/16 03:38 12/29/16 03:38 12/29/16 03:38 12/29/16 03:38 Microbiology 12/26/16 19:50 Gastrointestinal Tract Panel (PCR) - Final Stool No Organism Detected Fecal Leukocyte Stain - Final Laboratory Results 12/29/16 05:20 12/29/16 05:20 12/28/16 12/29/16 12/30/16 05:59 05:59 05:59 Intake Total 2340 1340 Output Total 2900 900 Balance -560 440 PT 14.1 SEC (12.0-15.0) 12/26/16 17:00 INR 1.10 (0.83-1.16) 12/26/16 17:00 - Physical Exam Constitutional: no apparent distress Eyes: PERRL Ears, Nose, Mouth, Throat: moist mucous membranes, hearing normal Cardiovascular: regular rate and rhythym, no murmur, rub, or gallop Respiratory: no respiratory distress, no rales or rhonchi Gastrointestinal: normoactive bowel sounds, soft, non-tender abdomen Genitourinary: no bladder fullness Musculoskeletal: other (RUE swelling resolved. LUE swelling improved. Ischemia over thumb. Palmar blister deroofed, no e/o infection. Digital ischemia of toes unchanged) Neurologic: AAOx3 (slow to answer, repeats self) Psychiatric: anxious ICD10 Worksheet Patient Problems: Problems Problem Status Onset Hyperkalemia Acute Ischemic toe Acute Renal failure Acute Skin lesion Acute Tylenol overdose Acute
[2016-12-29] MEDS: CALCIUM CARB W/VIT D 500 MG TAB PO SCH (09:02)
[2016-12-29] MEDS: INSULIN LISPRO 100 UNIT/ML SC SCH ×2 (09:02→12:45)
[2016-12-29] MEDS: THIAMINE HCL 100 MG TAB PO SCH (09:03)
[2016-12-29] MEDS: predniSONE 20 MG TAB PO SCH (09:03)
[2016-12-29] MEDS: SULFAMETHOX/TMP 800/160 MG 1 TAB PO SCH (09:03)
[2016-12-29] MEDS: VANCOMYCIN HCL/NORMAL SALINE 250 ML IV SCH (09:04)
[2016-12-29] MEDS: ENOXAPARIN 40 MG/0.4 ML SYR SC SCH (09:04)
[2016-12-29] MEDS: oxyCODONE IR 5 MG TAB PO PRN (09:18)
[2016-12-29] MEDS: SENNOSIDES 1 TAB PO SCH (09:21)
[2016-12-29 11:15] VITALS: BP 138/73; PULSE 94; RESP 20; TEMP 97.6
[2016-12-29 11:56] LABS: O/P CONCENTRATION NONE SEEN (NONE SEEN)
--- NOTE | 2016-12-29 13:55 | WOCRNPDOC ---
WOCRN Advanced Assessment Note - Skin Integrity Problem, Advanced Assess Left Palm Dressing Type: Open to Air (Patient removed dressing prior to assessment) Exudate Amount: None Exudate Characteristic(s): None Integumentary Issue Intervention: Dressing Applied Linda Wound Tissue: Swollen (edematous) Linda Wound Swelling: Moderate Wound Bed Color: Purple, Red Site Odor: None Skin Integrity Problem Comment: Previously large serosanguinous blister on rolle aspect, presently de-roofed and dry throughout. Patient reports new area of blistering between 4th and 5th fingers extending onto dorsum of L hand, but no blister or fluctuance was noted. Entire palm is intensely dry, peeling along margins. L hand and lower arm are edematous, w/ no erythema or pt. c/o pain. Applied Lipogel and covered w/ Hydrofera Blue Ready; secured w/ LONI per surgeon' s order. Right Medial Hand Dressing Type: Hydrocolloid (Replicare) Dressing Description: Clean/Dry, Intact Exudate Amount: None Exudate Characteristic(s): None Integumentary Issue Intervention: Dressing Changed Linda Wound Tissue: Intact Linda Wound Swelling: None Wound Bed Color: Brown Wound Bed Constitution: Scab Skin Integrity Problem Comment: Small, intact scab remains on the side of patient's right hand, w/ no exudate or associated swelling. Reapplied Repicare hydrocolloid. Right Second Knuckle Dressing Type: Hydrofera Blue Ready Dressing Description: Intact Exudate Amount: Scant Exudate Color: Reddish/Yellow Exudate Characteristic(s): Serosanguinous Integumentary Issue Intervention: Dressing Applied, Hydrogel Applied Linda Wound Tissue: Intact Linda Wound Swelling: None Wound Bed Color: Red Wound Bed Constitution: Granulation Tissue Wound Edges: Epithelizing, Not Attached (along proximal edge), Epibole (along proximal edge from 11-2 o'clock) Site Odor: None Skin Integrity Problem Comment: Granulation tissue throughout, improved since previous assessment. Linda-wound skin is intact, and edema in R hand is significantly decreased. The wound remains unattached along proximal edge, w/ some slight epibole. Will continue to monitor. Bilateral Toes Dressing Type: Open to Air Exudate Amount: None Exudate Characteristic(s): None Linda Wound Tissue: Erythema, Dry Linda Wound Swelling: Mild Wound Bed Color: Black Wound Bed Constitution: Stable Eschar Skin Integrity Problem Comment: Stable eschar noted on distal aspects of toes on both R and L feet. Patient observed walking this morning, and reports his pain is well-managed. Continue w/ Betadine per order.
--- NOTE | 2016-12-29 14:20 | PDIAF ---
- Diagnosis Code Status: Full Code - Medication Management Discharge Medications: Medications to Continue on Transfer clonazePAM [klonoPIN (*)] 2 mg PO DAILY@17 04/30/15 [Last Taken 12/25/16] traZODone [traZODONE 50MG (*)] 50 mg PO HS 08/26/16 [Last Taken 12/25/16] clonazePAM [klonoPIN (*)] 3 mg PO HS 12/05/16 [Last Taken 12/25/16] Amoxicillin/Clavulanate Pot [Augmentin 875 MG TAB (*)] 875 mg PO BID #14 tab [Last Taken 12/26/16] Carboxymethylcellulose 1% [Refresh Celluvisc (*)] 1 drop EACHEYE PRN PRN #0 droperette 12/24/16 [Last Taken Unknown] Insulin Lispro [humALOG LISPRO 100 units/ml (*)] 2 - 10 unit SC TIDMEAL #0 unit 12/24/16 [Last Taken Unknown] Ondansetron Odt [Zofran Odt 4 mg (*)] 4 mg PO Q4HRS PRN #0 tab 12/24/16 [Last Taken Unknown] Polyethylene Glycol 3350 [Miralax 17 gm (*)] 17 gm PO DAILY PRN #0 pkt 12/24/16 [Last Taken Unknown] Thiamine HCl [Vitamin B-1] 100 mg PO DAILY #0 tab 12/24/16 [Last Taken 12/26/16] Sennosides 8.6 mg PO BID 12/26/16 [Last Taken 12/26/16] Discharge Medications: Refer to the Discharge Home Medication list for PRN reason. - Orders Services needed: Registered Nurse, Certified Net Sql Developer, Physical Therapy, Occupational Therapy Diet Texture: Regular Texture Diet - Labs/Radiology CBC Date: 12/31/16 CMP Date: 12/31/16 - Follow Up Care Current Providers and Referrals: KASSY HALE MD [Other] - As per Instructions
--- NOTE | 2016-12-29 15:23 | PCMIDPN ---
Assessment/Plan: Assessment: Left hand cellulitis-secondary to the primary problem of vasculitic ischemia to the left hand. 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 He is now on steroids for this. Examination today revealed near resolution of bright erythema indications of inflammation on top of the ischemic qualities of the left hand. At this point patient could be switched to oral antibiotics such as Augmentin to cover secondary infections. Recommend attend a 14 day total course. Plan: 1. Continue vancomycin coverage while he is inpatient. At time of discharge he can switch over to oral Augmentin with follow-up evaluation in the office in approximately 5-7 days. Subjective: Patient is up and walking around his room. He states that his left hand is less swollen and feeling improved. Denies any fevers or chills. Objective: Vancomycin # 3 Vital Signs Temp Pulse Resp BP Pulse Ox 36.4 C 94 20 138/73 H 97 12/29/16 11:10 12/29/16 11:10 12/29/16 11:10 12/29/16 11:10 12/29/16 11:10 Laboratory Results 12/29/16 05:20 12/29/16 05:20 12/28/16 12/29/16 12/30/16 05:59 05:59 05:59 Intake Total 2340 1340 Output Total 2900 900 Balance -560 440 ESR 9 MM/HR (0-20) 12/26/16 17:00 C-Reactive Protein 20.6 mg/L (<10.0) H 12/26/16 17:00 - Physical Exam General Appearance: WD/WN, alert, no apparent distress, non-toxic Respiratory: lungs clear, normal breath sounds, No respiratory distress Cardiac/Chest: regular rate, rhythm, No tachycardia Extremities: No non-tender, No normal inspection Skin: normal color, warm/dry, rash (Mild rash left upper extremity.) Neuro/Psych: alert, normal mood/affect, oriented x 3 ICD10 Worksheet Patient Problems: Problems Problem Status Onset Hyperkalemia Acute Ischemic toe Acute Renal failure Acute Skin lesion Acute Tylenol overdose Acute
--- NOTE | 2016-12-29 15:39 | SOAPPROG ---
SOAP Progress Note Assessment/Plan: Assessment:no complaints. hand pain better each day. afebrile. left hand with full neoepithelialization. swelling better. tenderness resolved. digital ischemia left hand and feet unchanged. doing well. plan for dc today with po abx per ID. has f/u with neurology for PRIETO. will see back in 2-3 weeks for ischemia assessment - will need eventual partial toe amputation. fingers will all heal on their own. discussed with Dr. Tovar. Plan: 12/27/16 07:36 12/27/16 07:42 12/29/16 15:34 Objective: Vital Signs Temp Pulse Resp BP Pulse Ox 36.4 C 94 20 138/73 H 97 12/29/16 11:10 12/29/16 11:10 12/29/16 11:10 12/29/16 11:10 12/29/16 11:10 Laboratory Results 12/29/16 05:20 12/29/16 05:20 12/28/16 12/29/16 12/30/16 05:59 05:59 05:59 Intake Total 2340 1340 Output Total 2900 900 Balance -560 440 PT 14.1 SEC (12.0-15.0) 12/26/16 17:00 INR 1.10 (0.83-1.16) 12/26/16 17:00 ICD10 Worksheet Patient Problems: Problems Problem Status Onset Hyperkalemia Acute Ischemic toe Acute Renal failure Acute Skin lesion Acute Tylenol overdose Acute
--- NOTE | 2016-12-29 17:36 | GDS ---
[f rep st] DISCHARGE SUMMARY DISCHARGE DIAGNOSES: 1. Left upper extremity cellulitis. 2. Acute on chronic encephalopathy. 3. 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 4. Chronic immunosuppression. 5. Diarrhea. 6. Accelerated hypertension. 7. Right upper extremity swelling. 8. Leukocytosis. 9. Normocytic anemia. 10. History of alcohol abuse. 11. Hyperglycemia. 12. Deconditioning. 13. Bilateral feet and left hand digital ischemia. CONSULTATIONS: 1. Infectious Disease. 2. Surgery. 3. Wound Care. HISTORY OF PRESENT ILLNESS: The patient is a 56-year-old male, with recently prolonged and complicated medical course, discharged on 12/24/2016 with bilateral foot digital ischemia, with concern for polyarteritis nodosa. He was initially admitted December 05 of this year with acute bilateral digital ischemia of feet and had an extensive workup including CT angiogram, echocardiogram, rheumatology, oncology, and infectious disease consultations, and ultimately thought to be polyarteritis nodosa. Started on prednisone, and followed up by Dr. Mcpherson. He had involvement of the bilateral upper extremities at the last stay, and had a very large hematoma over the left palm, which was incised and drained. He was also encephalopathic during the last hospital stay in the setting of an alcoholic binge, per his , along with using Percocet and associated Tylenol toxicity. Per , his mental status has improved, but not totally. He presents today after being discharged to SNF with increased pain and swelling of his left upper extremity. He described it as being full of air. He also noted streaking along the left forearm. HOSPITAL COURSE BY PROBLEM: 1. Left upper extremity cellulitis, swelling: There was initially concern for necrotizing fasciitis. CT developed extensive cellulitis with features of myositis. No evidence of subcu air or abscess. Patient was evaluated by Surgery and Infectious Disease. He was empirically treated on broad antibiotics intravenously. The palmar blister was aspirated by Surgery. Symptoms are much improved. He will have swelling secondary to the myositis. We will transition him to doxycycline for a total of 7 days. I spoke with Dr. Carr the day of discharge who noted the hand is stable. There is digital ischemia of that hand, and he will follow up with Dr. Carr in 2-3 weeks. 2. Foot ischemia. Again, suspected underlying polyarteritis nodosa. He will need eventual partial toe amputation and can follow up with Surgery. 3. Polyarteritis nodosa: Patient is being followed by Dr. Mcpherson. I had a conversation with him during this hospitalization. He initially started him on prednisone 60. I just transitioned him to 40 mg daily for a total of 30 days and this will continue on a slow taper. Given chronic immunosuppression, I added calcium, vitamin D, and Bactrim for PCP prophylaxis. 4. Acute on chronic encephalopathy: Patient's mental status has been intermittent per since last hospitalization. At that time, his confusion was in the setting of a large alcohol binge, which he currently denies. His U- tox was negative here. He had a recent MRI on 12/07 that was unremarkable. Neurology consulted here, and did not think further evaluation was warranted. 5. Chronic immunosuppression: Calcium, vitamin D for bone health and Bactrim for PCP prophylaxis Tuesday, Tuesday, Tuesday. 6. Diarrhea: Negative PCR. No C difficile. 7. Accelerated hypertension: Pain was likely playing a role. This has improved. 8. Right upper extremity swelling secondary to a peripheral IV. This has resolved with pulling PICC and warm compresses. 9. Leukocytosis: Stable, likely secondary to steroids. No fever. Cultures have remained negative. 10. Hyperglycemia due to steroids. Continue p.r.n. sliding scale. 11. Deconditioning: The patient was discharged to [facility] for further rehabilitation. MEDICATIONS: New medications: 1. Calcium, vitamin D. 2. Prednisone 40 mg. 3. Bactrim double strength Tuesday, Tuesday, Tuesday. 4. Doxycycline 100 mg b.i.d. for 7 days. FOLLOWUP: 1. Dr. Carr in 2-[address] Mcpherson in Rheumatology. Time spent on discharge: 60 min in which greater than 50% counseling pt/ on discharge plan and follow up /[id number]/MODL MTDD
[2016-12-30 11:46] LABS: O/P TRICHROME NONE SEEN (NONE SEEN)
== END 2016-12-29 16:25 | DRG 602 ==
LOC: F3E 18:43
PROVIDERS: ADMIT Internal Medicine; ATTEND Internal Medicine
PROC: 02HV33Z Insertion of Infusion Device into Superior Vena Cava, Percutaneous Approach (ICD-10-PCS; principal; 2016-12-28)
DX: L03.114 Cellulitis of left upper limb (principal); G93.49 Other encephalopathy; M30.0 Polyarteritis nodosa; R19.7 Diarrhea, unspecified; I10 Essential (primary) hypertension; R73.9 Hyperglycemia, unspecified; T38.0X5A Adverse effect of glucocorticoids and synthetic analogues, initial encounter; Z72.0 Tobacco use
CPT/HCPCS: 80307; 97116-GP; 97161-GP; 97165-GO; 97530-GP; C1751; G0480; J1335; J1650; J1815; J2543; J3370; Q9967

== ENCOUNTER 2017-01-07 10:20 | Inpatient (IN) | payer OTHER ==
[2017-01-07] MEDS ORDERED: NALOXONE HCL 0.4 MG/ML INJ ONE ×2 (10:26→14:33)
--- NOTE | 2017-01-07 10:30 | EDPHY ---
HPI/HX/ROS/PE/MDM Narrative: CHIEF COMPLAINT: Altered mental status HPI: The patient is a 56-year-old male with a history of vasculitis, necrotic toes and recent discharge from the hospital approximately 2 weeks ago following a visit complicated by altered mental status, likely overdose. Patient was brought to the emergency department this morning by ambulance after found the patient essentially unconscious on the floor. He was able to wake up but has normal slurred speech was much worse than normal. She believes he may have taken too much narcotics. Blood sugar was normal on scene paramedics did not give the patient any medication. No history is obtainable from patient other than he is able to shake his head no when asked if he is in pain. REVIEW OF SYSTEMS: Aside from elements discussed in the HPI, a comprehensive 10-point review of systems was reviewed and is negative. PMH: Please see extensive charting for further details. Includes history of vasculitis with multiple necrotic toes, history of substance abuse, history of diabetes and sepsis SOCIAL HISTORY: . History of alcohol and drug abuse. PHYSICAL EXAM: General:Patient is sleeping, severely lethargic, wakes to verbal stimuli. ENT:Eyes are normal to inspection. ENT inspection normal. Pupils are 2 mm bilaterally. Neck: Normal inspection. Full range of motion. Respiratory:No respiratory distress. Breath sounds normal bilaterally. Cardiovascular: Regular rate and rhythm. Strong peripheral pulses. Normal cap refill. Abdomen:The abdomen is nontender to palpation. There are no peritoneal signs. There are normal bowel sounds. Back: Normal to inspection. No tenderness to palpation. Skin: Normal color. No rash. Warm and dry. Extremities: Multiple necrotic toes noted. Neuro: Responds to voice. No focal deficit noted. ED Course: Patient was given 0.4mg naloxone, which resulted in quick improvement in mental status. The patient is unfortunately now too agitated to sit still for a CTH. MDM: This patient presents with signs and symptoms of polysubstance overdose. This is supported by acute change in mental status after Narcan administration. There are no signs of infectious process or hypoglycemia. The patient is found to have renal insufficiency as well as an elevated troponin. His ECG shows no sign of active ischemia. Given his elevated troponin and ongoing AMS, he requires admission to the hospitalist service. He has remained hemodynamically stable here in the ED. - Data Points Laboratory Results: Laboratory Results 01/07/17 10:20 01/07/17 10:20 01/07/17 01/07/17 10:20 10:20 WBC 7.43 10^3/uL 10^3/uL (3.80-9.50) RBC 5.57 10^6/uL 10^6/uL (4.40-6.38) Hgb 17.8 g/dL H g/dL (13.7-17.5) Hct 53.6 % H % (40.0-51.0) MCV 96.2 fL fL (81.5-99.8) MCH 32.0 pg pg (27.9-34.1) MCHC 33.2 g/dL g/dL (32.4-36.7) RDW 14.9 % % (11.5-15.2) Plt Count 174 10^3/uL 10^3/uL (150-400) MPV 9.5 fL fL (8.7-11.7) Neut % (Auto) 91.4 % H % (39.3-74.2) Lymph % (Auto) 4.8 % L % (15.0-45.0) [place] % (Auto) 3.0 % L % (4.5-13.0) Eos % (Auto) 0.0 % L % (0.6-7.6) Baso % (Auto) 0.3 % % (0.3-1.7) Nucleat RBC Rel Count 0.0 % % (0.0-0.2) Absolute Neuts (auto) 6.79 10^3/uL H 10^3/uL (1.70-6.50) Absolute Lymphs (auto) 0.36 10^3/uL L 10^3/uL (1.00-3.00) Absolute Monos (auto) 0.22 10^3/uL L 10^3/uL (0.30-0.80) Absolute Eos (auto) 0.00 10^3/uL L 10^3/uL (0.03-0.40) Absolute Basos (auto) 0.02 10^3/uL 10^3/uL (0.02-0.10) Absolute Nucleated RBC 0.00 10^3/uL 10^3/uL (0-0.01) Immature Gran % 0.5 % % (0.0-1.1) Immature Gran # 0.04 10^3/uL 10^3/uL (0.00-0.10) Sodium 137 mEq/L mEq/L (134-144) Potassium 5.0 mEq/L mEq/L (3.5-5.2) Chloride 98 mEq/L mEq/L (97-110) Carbon Dioxide 25 mEq/l mEq/l (22-31) Anion Gap 14 mEq/L mEq/L (8-16) BUN 27 mg/dL H mg/dL (7-23) Creatinine 1.8 mg/dL H mg/dL (0.7-1.3) Estimated GFR 39 Glucose 100 mg/dL mg/dL (70-100) Calcium 9.6 mg/dL mg/dL (8.5-10.4) Total Bilirubin 0.7 mg/dL mg/dL (0.1-1.4) Conjugated Bilirubin 0.7 mg/dL H mg/dL (0.0-0.5) Unconjugated Bilirubin 0.0 mg/dL mg/dL (0.0-1.1) AST 47 IU/L IU/L (17-59) ALT 62 IU/L IU/L (21-72) Alkaline Phosphatase 76 IU/L IU/L (38-126) Troponin I 0.158 ng/mL H ng/mL (0-0.034) Total Protein 6.5 g/dL g/dL (6.3-8.2) Albumin 4.0 g/dL g/dL (3.5-5.0) Salicylates < 1.0 mg/dL L mg/dL (2.0-20.0) Acetaminophen < 10 mcg/mL L mcg/mL (10.0-30.0) Ethyl Alcohol < 10 mg/dL mg/dL (0-10) Medications Given: Discontinued Medications Sodium Chloride (Ns) 1,000 mls @ 0 mls/hr IV ONCE ONE PRN Reason: Wide Open Stop: 01/07/17 10:59 Last Admin: 01/07/17 11:03 Dose: 1,000 mls Naloxone HCl (Narcan) 0.4 mg IVP EDNOW ONE Stop: 01/07/17 10:42 Last Admin: 01/07/17 10:42 Dose: 0.4 mg General Initial Vital Signs: Initial Vital Signs Temperature (C) 36.4 C 01/07/17 10:34 Heart Rate 102 H 01/07/17 10:34 Respiratory Rate 16 01/07/17 10:34 Blood Pressure 158/112 H 01/07/17 10:34 O2 Sat (%) 85 L 01/07/17 10:34 O2 Delivery Mode Nasal Cannula O2 (L/minute) 2 Allergies/Adverse Reactions: cephalexin monohydrate [From Keflex] Allergy (Verified 12/17/16 10:09) Home Medications: Medication Instructions Recorded Insulin Lispro [humALOG LISPRO 100 10 unit SC TIDMEAL 01/07/17 units/ml (*)] Ondansetron HCl [Zofran] 4 mg PO Q4 PRN 01/07/17 PARoxetine HCL [Paroxetine HCl] 40 mg PO DAILY 01/07/17 Sulfamethox/Tmp 400/80 mg 1 tab PO MWF@,21 01/07/17 [Sulfamethoxazole-Tmp SS] Thiamine HCl 100 mg PO DAILY 01/07/17 clonazePAM [klonoPIN (*)] 1 mg PO 5XD PRN 01/07/17 oxyCODONE IR [Oxycodone Ir (*)] 5 - 10 mg PO Q6 PRN 01/07/17 predniSONE 20 mg PO DAILY 01/07/17 traZODone [traZODONE 50MG (*)] 50 mg PO HS 01/07/17 Departure - Departure Disposition: [facility] Acute Clinical Impression: Altered mental status, Polysubstance abuse, Ischemic toe, Renal failure Condition: Fair
[2017-01-07] MEDS ORDERED: NALOXONE HCL 0.4 MG/ML INJ IVP ONE ×2 (10:41→15:00)
[2017-01-07] MEDS ORDERED: NS 1,000 ML IV ONE ×2 (10:58→15:15)
[2017-01-07 11:04] LABS: % IMMATURE GRANULYOCYTES 0.5 % (0.0-1.1); ABSOLUTE IMMATURE GRANULOCYTES 0.04 10^3/uL (0.00-0.10); ADD DIFF? NO; ADD MORPH? NO; ADD SCAN? NO; ATYPICAL LYMPHOCYTE FLAG 0 (0-99); FRAGMENT RBC FLAG 70 (0-99); HEMATOCRIT 53.6 % (40.0-51.0); HEMOGLOBIN 17.8 g/dL (13.7-17.5); LEFT SHIFT FLG 0 (0-99); LIPEMIA HEMOLYSIS FLAG 80 (0-99); MEAN CELL HEMOGLOBIN CONCENTR. 33.2 g/dL (32.4-36.7); MEAN CELL VOLUME 96.2 fL (81.5-99.8); MEAN PLATELET VOLUME 9.5 fL (8.7-11.7); PLATELET CLUMPS FLAG 10 (0-99); PLATELET COUNT 174 10^3/uL (150-400); RED BLOOD CELL COUNT 5.57 10^6/uL (4.40-6.38); RED CELL DISTRIBUTION WIDTH 14.9 % (11.5-15.2)
[2017-01-07 11:12] LABS: ALANINE AMINOTRANSFERASE 62 IU/L (21-72); ALKALINE PHOSPHATASE 76 IU/L (38-126); ANION GAP 14 mEq/L (8-16); ASPARTATE AMINOTRANSFERASE 47 IU/L (17-59); BILIRUBIN,TOTAL 0.7 mg/dL (0.1-1.4); BILIRUBIN-CONJUGATED 0.7 mg/dL (0.0-0.5); CALCIUM 9.6 mg/dL (8.5-10.4); CARBON DIOXIDE 25 mEq/l (22-31); CHLORIDE 98 mEq/L (97-110); CREATININE 1.8 mg/dL (0.7-1.3); ETHANOL SERUM < 10 mg/dL (0-10); GLOMERULAR FILTRATION RATE 39; GLUCOSE 100 mg/dL (70-100); SALICYLATE < 1.0 mg/dL (2.0-20.0); SODIUM 137 mEq/L (134-144); TOTAL PROTEIN 6.5 g/dL (6.3-8.2)
--- NOTE | 2017-01-07 11:18 | CPEKG ---
Heart Rate: 98 RR Interval: 612 P-R Interval: 148 QRSD Interval: 78 QT Interval: 340 QTC Interval: 435 P [place]: 60 QRS [place]: 14 T Wave [place]: 8 EKG Severity - NORMAL ECG - EKG Impression: SINUS RHYTHM Electronically Signed By: Brian Syed 07-Jan-2017 14:50:35
[2017-01-07 11:22] LABS: TROPONIN I 0.158 ng/mL (0-0.034)
--- NOTE | 2017-01-07 14:46 | PDGENHP ---
History and Physical History and Physical: HISTORY AND PHYSICAL CC: Found unresponsive on floor at home HISTORY: This patient is brought by ambulance into the hospital ER after being found unresponsive on the kitchen floor by his at home today. The overall story is further complicated but he is taking chronic benzodiazepines and narcotics at home and has had previous episodes admitted here with unintentional overdose. His tells me now that often is quite sedated by his medicines at home to the point where he can barely talk or can't talk at all. Yesterday she said she got up in the morning and found him sleeping on the sofa with the back door wide open, and the oven in 2 burners on the stove on with nothing cooking. She said she last saw him awake and attentive and talking last night sitting in a chair watching TV. She went to bed and when she got up this morning she found him unresponsive on the kitchen floor. Paramedics were called and found of normal blood sugar and transported the patient here. In the ER here on initial evaluation he was sedated and responded to Narcan confirming overuse of narcotic. The patient is prescribed narcotic medications at this time for pain from as a vasculitis which may be polyarteritis nodosa. He also is prescribed chronically clonazepam with 3 times daily dosing decreased from previous 5 times daily dosing. However the patient's says that the patient routinely instead of taking his medicine 3 times a day takes all 3 doses at 1 time often in the morning. She says that she has been trying to control his pain medicines and going out the medicines. She has had his narcotics from him in the past but he always finds them. The patient does have a long history of alcohol abuse as well. The patient has been here for 1 admission last month and this is his 3rd admission this month. These previous admissions have mostly revolving around 2 issues. The 1st is that he has developed what looks like probably polyarteritis nodosa has severe gangrenous changes of all of his toes, will probably lose all this toes. He also had a lesion on his left hand and right hand in these were evaluated and had some minor surgeries. He has been following with Dr. Kiran Mcpherson who is treating him with prednisone and it sounds like that is where he is also getting his narcotic analgesic. The other issue these for admissions has been no over sedation from his various medications. ROS: A comprehensive 10 system review is not possible at this time as the patient is nonverbal; the states that he has not had any known nausea or vomiting or diarrhea that she is aware of but he has been eating. She knows that he does have ongoing pain to his medical conditions. She denies any knowledge of fevers. 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 Kiran Mcpherson is his supervisor [employer] Dr. Nikos De La Rosa in [place] as his primary care physician MEDICATIONS: The patients list has been reconciled by our clinical pharmacist in the EMR. I have reviewed the list and ordered appropriate medicines. PHYSICAL EXAMINATION: Vital Signs: Hypertension, otherwise normal Automation Technologist: Sinus rhythm Examination: General: Currently sedated and unarousable; he came in slightly more arousable than that and became more arousable after some Narcan in the ER Neurologic: Unable to perform significant neurologic exam to change mentation, nothing focal is obvious Skin: warm, pale HEENT: normal Neck: no mass or jvd Resps: Shallow with some snoring Lungs: clear breath sounds Heart: regular, no murmur Abdomen: soft, nondistended, +BS, no mass Upper Extremities: Wound on dorsum of right hand not yet healed, otherwise normal Lower Extremities: Black dry gangrene of all 10 toes in their entirety No Bleeding or bruising IV site: looks normal LABORATORY DATA: Hemoconcentrated with hemoglobin simply night and a recent hemoglobin of 12 New acute renal failure with creatinine 2.8 Troponin 0.15 liver enzymes are normal RADIOLOGY STUDIES: Head CT scan done in the ER, my personal review of the images: No hemorrhage or other acute abnormalities or stroke 12 lead EKG was done in the ER, but I am unable to open the tracing to review it in the computer records. Was reviewed by Dr. Syed who found no concerning acute abnormalities ASSESSMENT: -acute encephalopathy due to probable overdose of narcotic and benzodiazepine as well as apparent dehydration and renal failure; whether not there may be any effect of his vasculitis is uncertain but there is nothing that appears ischemic by CT at this moment; MRI may possibly be useful -Acute dehydration probably due to poor intake from ongoing overuse of medications -Acute renal failure likely primarily due to dehydration though there may be hypoxic effective he was not breathing well at home and he is also prescribed ibuprofen that he uses at home -recent onset of vasculitis with gangrene of toes, pain in feet and hands -ongoing abuse of prescribed medicines and history of alcohol abuse PLANS: I have just given him a dose of Narcan will give a dose of from a Romazicon and may need more Narcan If we continue to have problems with his mentation we may need to consider moving him the ICU today Will begin IV hydration now with a bolus of normal saline followed by drip Hold all sedating medicines at this time For the moment will probably need to give him some IV steroids as I do not know that will be able to get his oral steroids in time. He is currently on a taper that started some weeks ago at 60 mg daily and now down to 20 so has a potential for adrenal insufficiency if doses are missed Follow renal function closely I have reviewed the patient's case in detail with Dr. Brian Syed I have reviewed the patient's past medical records as part of this assessment, including past hospital admission records and lab values. ADDENDUM: I have now given the patient a second dose of 0.4 mg narcan with almost no response. He did however respond notably better to 0.2 mg of romazecon given, so that at least at the moment I think his sedation may be more due to klonazepam than narcotic which makes sense given the half life of his oxy IR vs klonazepam, but will still need very careful watching.
[2017-01-07] MEDS ORDERED: FLUMAZENIL 0.5 MG/5 ML MDV IVP ONE (15:01)
[2017-01-07] MEDS ORDERED: NS 1,000 ML IV SCH (15:15)
[2017-01-07] MEDS ORDERED: ONDANSETRON 4 MG/2 ML VIAL IVP PRN (15:16)
--- NOTE | 2017-01-07 16:24 | WOCRNPDOC ---
[facility] Advanced Assessment Note - Skin Integrity Problem, Advanced Assess Left Palm Dressing Type: Adaptic Touch, Paulina Dressing Description: Clean/Dry, Intact Exudate Amount: None Exudate Characteristic(s): None Linda Wound Tissue: Intact Wound Bed Color: Or[place], Red Wound Edges: Epithelizing Site Odor: None Site Measurement - Head-to-Toe Length X Width X Depth (cm): 9.5cmx6.5cmx0.1cm Skin Integrity Problem Comment: This patient is well-known to wound care, having received treatment on all previous admissions. This wound was a large blister, which was drained by surgeon during patient's previous admission. Presently, the wound bed is comprised of epithelializing, healing tissue, w/ partial-thickness tissue loss evident. There remains some excess tissue from de- roofed blister along margin. Linda-wound skin is intact w/ only trace edema and no erythema observed. Wound has done well with Hydrofera Blue Ready dressing, and orders written to continue w/ tx until site completely healed. registered nurse practitioner Jill present and assisting. Right Dorsal Hand Dressing Type: Allevyn Life Dressing Description: Clean/Dry, Intact Exudate Amount: Scant Exudate Color: Reddish/Yellow Exudate Characteristic(s): Serosanguinous Linda Wound Tissue: Intact Linda Wound Swelling: None Wound Bed Color: Red Wound Bed Constitution: Granulation Tissue Wound Edges: Epithelizing, Attached Site Odor: None Site Measurement - Head-to-Toe Length X Width X Depth (cm): 2.2cmx1.2cmx0.2cm Skin Integrity Problem Comment: Full-thickness wound on dorsal aspect of R hand , proximal to 2nd phalanx. Wound bed is 100% granulation tissue w/ no necrosis noted. Wound edges epithelializing. Patient has been using Hydrofera Blue Ready for this wound since his previous hospitalization, and it appears to be effective. Continue w/ tx. Bilateral Toe Dressing Type: Open to Air Exudate Amount: None Exudate Characteristic(s): None Linda Wound Swelling: None Wound Bed Color: Black Wound Bed Constitution: Stable Eschar Site Odor: None Skin Integrity Problem Comment: Stable eschar noted to distal aspects of all patient's phlanges, consistent w/ assessments from previous hospitalization. The great toes on both feet have the most pronounced necrosis, extending proximally on both the dorsal and plantar aspects of the toes. The necrosis on the remaining toes is primarily confined to the distal and plantar aspects. Goal of current tx is to keep the toes dry at all times. Order written for Betadine QD, and Mepilex Transfer woven between toes.
[2017-01-07 20:17] VITALS: RESP 16
[2017-01-07] MEDS ORDERED: SULFAMETHOX/TMP 400/80 MG 1 TAB PO SCH (21:00)
[2017-01-07] MEDS: HEPARIN 5,000 UNIT/0.5 ML SYR SC SCH (23:22)
[2017-01-08] MEDS: oxyCODONE IR 5 MG TAB PO PRN ×2 (00:35→08:03)
[2017-01-08 05:03] LABS: % IMMATURE GRANULYOCYTES 0.4 % (0.0-1.1); ABSOLUTE IMMATURE GRANULOCYTES 0.03 10^3/uL (0.00-0.10); ADD DIFF? NO; ADD MORPH? NO; ADD SCAN? NO; ATYPICAL LYMPHOCYTE FLAG 0 (0-99); FRAGMENT RBC FLAG 0 (0-99); HEMATOCRIT 34.6 % (40.0-51.0); HEMOGLOBIN 11.3 g/dL (13.7-17.5); LEFT SHIFT FLG 0 (0-99); LIPEMIA HEMOLYSIS FLAG 80 (0-99); MEAN CELL HEMOGLOBIN 31.7 pg (27.9-34.1); MEAN CELL HEMOGLOBIN CONCENTR. 32.7 g/dL (32.4-36.7); MEAN CELL VOLUME 96.9 fL (81.5-99.8); MEAN PLATELET VOLUME 9.5 fL (8.7-11.7); PLATELET CLUMPS FLAG 0 (0-99); PLATELET COUNT 309 10^3/uL (150-400); RED BLOOD CELL COUNT 3.57 10^6/uL (4.40-6.38); RED CELL DISTRIBUTION WIDTH 14.7 % (11.5-15.2)
[2017-01-08 05:35] LABS: ALANINE AMINOTRANSFERASE 74 IU/L (21-72); ALBUMIN 3.1 g/dL (3.5-5.0); ALKALINE PHOSPHATASE 62 IU/L (38-126); ANION GAP 9 mEq/L (8-16); ASPARTATE AMINOTRANSFERASE 125 IU/L (17-59); BILIRUBIN,TOTAL 0.5 mg/dL (0.1-1.4); CALCIUM 8.8 mg/dL (8.5-10.4); CARBON DIOXIDE 27 mEq/l (22-31); CHLORIDE 106 mEq/L (97-110); CREATININE 1.1 mg/dL (0.7-1.3); GLOMERULAR FILTRATION RATE > 60; GLUCOSE 57 mg/dL (70-100); POTASSIUM 4.4 mEq/L (3.5-5.2); SODIUM 142 mEq/L (134-144); TOTAL PROTEIN 5.4 g/dL (6.3-8.2)
[2017-01-08 06:06] LABS: CK-MB INTERPRETATION NEGATIVE (NEGATIVE)
[2017-01-08] MEDS: THIAMINE HCL 100 MG TAB PO SCH ×2 (08:01→08:02)
[2017-01-08] MEDS: HEPARIN 5,000 UNIT/0.5 ML SYR SC SCH ×2 (08:04→15:53)
[2017-01-08] MEDS ORDERED: predniSONE 20 MG TAB PO SCH (09:00)
[2017-01-08] MEDS ORDERED: PAROXETINE HCL 40 MG PO SCH (09:00)
[2017-01-08] MEDS ORDERED: PARoxetine HCL 20 MG TAB PO SCH (09:00)
[2017-01-08 11:27] VITALS: BP 150/90; PULSE 94; TEMP 98.4; O2SAT 96
[2017-01-08] MEDS ORDERED: oxyCODONE IR 5 MG TAB PO PRN (13:38)
[2017-01-08] MEDS ORDERED: ONDANSETRON DISINTEGRATING 4 MG TAB PO PRN (13:49)
--- NOTE | 2017-01-08 14:51 | GDS ---
[f rep st] DISCHARGE SUMMARY DIAGNOSIS: 1. Inadvertent Klonopin overdose and possible oxycodone overdose. 2. Chronic pain with chronic narcotic dependency secondary to polyarteritis nodosum. 3. Probable polyarteritis nodosa with distal necrosis. 4. Hypertension. 5. Depression. 6. History of alcohol abuse. Currently sober. 7. Sciatica. 8. History of gastroesophageal reflux disease. PROCEDURES DONE: 1. Head CT without contrast showing nothing acute. 2. Electrocardiogram, sinus rhythm. HOSPITAL COURSE: The patient is a 56-year-old man with multiple admissions over the past 3 months w sg comes in after being found down by his on the kitchen floor. She last saw him in a normal [facility] the night before. He is on a number of medications including Klonopin and oxycodone. On admission to the hospital, he was given Narcan and Romazicon which reversed his symptoms and br ought him back to close to baseline. He was admitted overnight, treated as needed with Narcan and R omazicon. Today when I am seeing him, he appears to be close to his baseline functioning. He does have a history significant for likely vasculitis causing dry gangrene of his toes. This does cause him a lot of pain, and he has been followed by Dr. Mcpherson for his vasculitis and Dr. Nikos De La Rosa for his other medical issues. Apparently he is self medicating with Klonopin and oxycodone for the se issues. His did state to the admitting physician that sometimes the patient takes his Klono pin all in 1 sitting. He is scheduled to take 2 mg in the morning and 3 mg at bedtime. I suspect t hat he took too many of these at 1 time and was unresponsive, which brought him to the emergency dep artment. He does have a plan at this time to have his dispense his medications and keep them i n a locked box so he will not have to think about taking them. Additionally, I will decrease his cl onazepam to 1 mg in the morning and 2 mg at night. He needs to follow up with Dr. De La Rosa to cont inue adjusting his medications and minimize his Klonopin and his oxycodone given his recent admissio n. The patient has not been suicidal. This was an unintentional overdose. CONDITION ON DISCHARGE: Good. PHYSICAL EXAMINATION: VITAL SIGNS: He has been afebrile, heart rate in the 80s, blood pressure 150 /90, oxygen saturation is 96% on room air. GENERAL: He is alert. He is wide awake and talkative w ithout any signs of sedation or slurred speech. HEART: Regular. LUNGS: Clear. EXTREMITIES: He does have ongoing necrotic toes which he will continue to follow up with Wound Care. DISCHARGE MEDICATIONS: Please see discharge medication form. Notable change is to decrease his Klo nopin from 2 in the morning 3 at night to 1 in the morning and 2 at night. FOLLOWUP INSTRUCTIONS: He will follow up with the [facility]. He will follow up with Dr. Everett chung to adjust his medications and minimize his narcotics and benzodiazepines, and will follow up with Dr. Mcpherson as needed for his vasculitis. /[id number]/MODL
--- NOTE | 2017-01-08 16:12 | PDIAF ---
- Diagnosis Diagnosis: clonidine overdose, unintentional Code Status: Full Code - Medication Management Discharge Medications: Medications to Continue on Transfer Insulin Lispro [humALOG LISPRO 100 units/ml (*)] 10 unit SC TIDMEAL 01/07/17 [ Last Taken Unknown] Ondansetron HCl [Zofran] 4 mg PO Q4 PRN 01/07/17 [Last Taken 01/06/17] PARoxetine HCL [Paroxetine HCl] 40 mg PO DAILY 01/07/17 [Last Taken Unknown] Sulfamethox/Tmp 400/80 mg [Sulfamethoxazole-Tmp SS] 1 tab PO MWF@,01/07/17 [Last Taken Unknown] Thiamine HCl 100 mg PO DAILY 01/07/17 [Last Taken Unknown] oxyCODONE IR [Oxycodone Ir (*)] 5 - 10 mg PO Q6 PRN 01/07/17 [Last Taken ] predniSONE 20 mg PO DAILY 01/07/17 [Last Taken Unknown] traZODone [traZODONE 50MG (*)] 50 mg PO HS 01/07/17 [Last Taken Unknown] clonazePAM [klonoPIN (*)] 1 mg PO TID PRN #0 tab 01/08/17 [Last Taken Unknown] Discharge Medications: Refer to the Discharge Home Medication list for PRN reason. PICC Care - Routine: N/A - Orders Services needed: Home Care, Registered Nurse, Physical Therapy, Occupational Therapy Home Care Face to Face: I certify that this patient was under my care and that I had the required [id number] encounter meeting the encounter requirements on the discharge day. My findings support the fact that the patient is homebound as defined in CMS Chapter 7 Medicare Benefits Manual 30.1.1, The condition of the patient is such that there exists a normal inability to leave home and consequently, leaving home would require a considerable and taxing effort. Diet Recommendation: no restrictions on diet Diet Texture: Regular Texture Diet - Follow Up Care Current Providers and Referrals: Patient,NotPresent [Unknown] - As per Instructions
[2017-01-08] MEDS ORDERED: INSULIN LISPRO 100 UNIT/ML SC SCH (18:00)
[2017-01-08] MEDS ORDERED: traZODone 50 MG TAB PO SCH (21:00)
== END 2017-01-08 17:56 | disposition home or self-care (01) | DRG 918 ==
LOC: EDUNIT# → OBSVTOIN 11:53 → F2W 13:32
PROVIDERS: ADMIT Internal Medicine; ATTEND Internal Medicine
DX: T42.4X1A Poisoning by benzodiazepines, accidental (unintentional), initial encounter (principal); T40.2X1A Poisoning by other opioids, accidental (unintentional), initial encounter; G89.29 Other chronic pain; F11.20 Opioid dependence, uncomplicated; M30.0 Polyarteritis nodosa; N17.9 Acute kidney failure, unspecified; I96 Gangrene, not elsewhere classified; E86.0 Dehydration; I10 Essential (primary) hypertension; F32.9 Major depressive disorder, single episode, unspecified; M54.40 Lumbago with sciatica, unspecified side; K21.9 Gastro-esophageal reflux disease without esophagitis
CPT/HCPCS: 96374; 97162-GP; 97165-GO; G0398; G0480; J2310

== ENCOUNTER 2017-02-02 13:56 | Emergency (ER) | payer OTHER ==
--- NOTE | 2017-02-02 14:21 | EDPHY ---
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 He developed bruising of the right thigh a few days ago. The bruising has gradually progressed. No associated pain. His home healthcare nurse was concerned about a possible blood clot and sent him here for an ultrasound. Onset right-sided chest pain 1 week ago, associated shortness of breath. The chest pain is mild, intermittent and sharp and stabbing. No prior history of coronary artery disease or pulmonary embolism. 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 (Rosa Kingsley) Physical Exam: General Appearance: Alert, talkative Eyes: Pupils equal and round, no conjunctival pallor or injection ENT, Mouth: Mucous membranes moist Neck: Normal inspection Respiratory: Lungs are clear to auscultation Cardiovascular: Regular rate and rhythm Gastrointestinal: Abdomen is soft and nontender Neurological: A&O, nonfocal exam Skin: Warm and dry Extremities: Ecchymosis on the medial aspect of the right thigh, extending to the proximal lower leg; necrotic eschar on left 1st toe and right 1st-4th toes; no tenderness, erythema, warmth or swelling Psychiatric: Mood and affect normal (Rosa Kingsley S) Constitutional: Initial Vital Signs Temperature (C) 36.5 C 02/02/17 14:19 Heart Rate 78 02/02/17 14:19 Respiratory Rate 18 02/02/17 14:19 Blood Pressure 156/73 H 02/02/17 14:19 O2 Sat (%) 96 02/02/17 14:19 O2 Delivery Mode Room Air Allergies/Adverse Reactions: cephalexin monohydrate [From Keflex] Allergy (Verified 12/17/16 10:09) Home Medications: Medication Instructions Recorded Insulin Lispro [humALOG LISPRO 100 10 unit SC TIDMEAL 01/07/17 units/ml (*)] Ondansetron HCl [Zofran] 4 mg PO Q4 PRN 01/07/17 PARoxetine HCL [Paroxetine HCl] 40 mg PO DAILY 01/07/17 Sulfamethox/Tmp 400/80 mg 1 tab PO MWF@09,21 01/07/17 [Sulfamethoxazole-Tmp SS] Thiamine HCl 100 mg PO DAILY 01/07/17 oxyCODONE IR [Oxycodone Ir (*)] 5 - 10 mg PO Q6 PRN 01/07/17 predniSONE 20 mg PO DAILY 01/07/17 traZODone [traZODONE 50MG (*)] 50 mg PO HS 01/07/17 clonazePAM [klonoPIN (*)] 1 mg PO TID PRN #0 tab 01/08/17 Medical Decision Making - Diagnostics EKG Interpretation: EKG interpreted by me reveals normal sinus rhythm, rate 78, no ST or T segment changes. Interpretation: Normal EKG (Rosa Kingsley) Imaging Results: Imaging Impressions Chest/Thorax CTA 02/02/17 14:18 Impression: 1. No evidence for pulmonary embolus. 2. Evidence of atherosclerotic disease in the coronary arteries. 3. Evidence of prior granulomatous disease, with calcified granuloma in the left upper lobe, lingula. 4. Mild bronchitis. Results called to Dr. Servando Bender at 1526 hours on February 02, 2017. Extremity Venous Study 02/02/17 14:49 Impression: No evidence of deep vein thrombosis in the right lower extremity. Results called to Dr. Bender at 3:38 pm. ED Course/Re-evaluation: This patient was signed over to Dr. Servando Bender at shift change. If the CT pulmonary angiogram and right lower extremity ultrasound are normal, I feel that this patient can be safely discharged home. The wound care nurse saw the patient in the emergency department. The patient will call the wound healing clinic for follow-up on the healing wounds on his feet. (Rosa Kingsley) Differential Diagnosis: Differential diagnosis includes though it is not limited to pneumonia, pneumothorax, pulmonary embolism, aortic dissection, pericarditis, acute coronary syndrome. (Rosa Kingsley) Other Provider: Care assumed from Dr. Kingsley at 1500. Plan to discharge if CT angiography and ultrasound do not show evidence of venous thromboembolism. CT angiography of the chest discussed with Dr. Elkins, normal. Ultrasound discussed with Sandie at 3:39 p.m., negative for DVT, normal. Imaging studies discussed in detail with the patient and family at 3:40 p.m. discharge as per Dr. Kingsley's plan. (Servando Bender) - Data Points Laboratory Results: Laboratory Results 02/02/17 14:17 02/02/17 14:01 02/02/17 02/02/17 02/02/17 14:17 14:15 14:01 WBC 12.29 10^3/uL H 10^3/uL (3.80-9.50) RBC 3.99 10^6/uL L 10^6/uL (4.40-6.38) Hgb 12.2 g/dL L g/dL (13.7-17.5) POC Hgb 13.9 gm/dL L gm/dL (14.5-17.3) Hct 37.9 % L % (40.0-51.0) POC Hct 41 % L % (42.8-50.6) MCV 95.0 fL fL (81.5-99.8) MCH 30.6 pg pg (27.9-34.1) MCHC 32.2 g/dL L g/dL (32.4-36.7) RDW 15.1 % % (11.5-15.2) Plt Count 310 10^3/uL 10^3/uL (150-400) MPV 9.3 fL fL (8.7-11.7) Neut % (Auto) 73.2 % % (39.3-74.2) Lymph % (Auto) 14.9 % L % (15.0-45.0) [place] % (Auto) 4.6 % % (4.5-13.0) Eos % (Auto) 5.4 % % (0.6-7.6) Baso % (Auto) 0.8 % % (0.3-1.7) Nucleat RBC Rel Count 0.2 % % (0.0-0.2) Absolute Neuts (auto) 9.01 10^3/uL H 10^3/uL (1.70-6.50) Absolute Lymphs (auto) 1.83 10^3/uL 10^3/uL (1.00-3.00) Absolute Monos (auto) 0.56 10^3/uL 10^3/uL (0.30-0.80) Absolute Eos (auto) 0.66 10^3/uL H 10^3/uL (0.03-0.40) Absolute Basos (auto) 0.10 10^3/uL 10^3/uL (0.02-0.10) Absolute Nucleated RBC 0.02 10^3/uL H 10^3/uL (0-0.01) Immature Gran % 1.1 % % (0.0-1.1) Immature Gran # 0.13 10^3/uL H 10^3/uL (0.00-0.10) D-Dimer 1.74 ug/mLFEU H ug/mLFEU (0.00-0.50) POC Sodium 142 mEq/L mEq/L (134-144) Sodium POC Potassium 4.9 mEq/L mEq/L (3.3-5.0) Potassium POC Chloride 107 mEq/L mEq/L (96-108) Chloride Carbon Dioxide Anion Gap POC BUN 21 mg/dL mg/dL (7-23) BUN Creatinine POC Creatinine 0.8 mg/dL mg/dL (0.8-1.5) Estimated GFR Glucose POC Glucose 110 mg/dL H mg/dL (70-100) Calcium Troponin I NT-Pro-B Natriuret Pep 02/02/17 14:01 WBC RBC Hgb POC Hgb Hct POC Hct MCV MCH MCHC RDW Plt Count MPV Neut % (Auto) Lymph % (Auto) [place] % (Auto) Eos % (Auto) Baso % (Auto) Nucleat RBC Rel Count Absolute Neuts (auto) Absolute Lymphs (auto) Absolute Monos (auto) Absolute Eos (auto) Absolute Basos (auto) Absolute Nucleated RBC Immature Gran % Immature Gran # D-Dimer POC Sodium Sodium 138 mEq/L mEq/L (134-144) POC Potassium Potassium 5.1 mEq/L mEq/L (3.5-5.2) POC Chloride Chloride 108 mEq/L mEq/L (97-110) Carbon Dioxide 24 mEq/l mEq/l (22-31) Anion Gap 6 mEq/L L mEq/L (8-16) POC BUN BUN 20 mg/dL mg/dL (7-23) Creatinine 0.8 mg/dL mg/dL (0.7-1.3) POC Creatinine Estimated GFR > 60 Glucose 99 mg/dL mg/dL (70-100) POC Glucose Calcium 8.9 mg/dL mg/dL (8.5-10.4) Troponin I < 0.012 ng/mL ng/mL (0-0.034) NT-Pro-B Natriuret Pep 281 pg/mL H pg/mL (0-125) Point of Care Test Results: 02/02/17 14:15 POC Sodium 142 POC Potassium 4.9 POC Chloride 107 POC BUN 21 POC Creatinine 0.8 POC Glucose 110 H Departure - Departure Disposition: Home, Routine, Self-Care Clinical Impression: ecchymosis of thigh Chest pain Qualifiers: Chest pain type: other chest pain Qualified Code(s): R07.89 - Other chest pain Condition: Good Instructions: Chest Pain (ED) Referrals: [facility] [Clinic] - As per Instructions (Call to make an appointment. ) Kiran Mcpherson MD [[facility] [place] - 2-3 days, if not improved
[2017-02-02 14:22] VITALS: RESP 18
--- NOTE | 2017-02-02 14:26 | CPEKG ---
Heart Rate: 78 RR Interval: 769 P-R Interval: 128 QRSD Interval: 70 QT Interval: 360 QTC Interval: 411 P [place]: 51 QRS [place]: 10 T Wave [place]: 8 EKG Severity - NORMAL ECG - EKG Impression: SINUS RHYTHM Electronically Signed By: Rosa Kingsley 02-Feb-2017 14:47:22
[2017-02-02 14:27] LABS: % IMMATURE GRANULYOCYTES 1.1 % (0.0-1.1); ABSOLUTE IMMATURE GRANULOCYTES 0.13 10^3/uL (0.00-0.10); ABSOLUTE NRBC COUNT 0.02 10^3/uL (0-0.01); ADD DIFF? NO; ADD MORPH? NO; ADD SCAN? NO; ATYPICAL LYMPHOCYTE FLAG 10 (0-99); FRAGMENT RBC FLAG 0 (0-99); HEMATOCRIT 37.9 % (40.0-51.0); HEMOGLOBIN 12.2 g/dL (13.7-17.5); LEFT SHIFT FLG 20 (0-99); LIPEMIA HEMOLYSIS FLAG 80 (0-99); MEAN CELL HEMOGLOBIN 30.6 pg (27.9-34.1); MEAN CELL HEMOGLOBIN CONCENTR. 32.2 g/dL (32.4-36.7); MEAN PLATELET VOLUME 9.3 fL (8.7-11.7); NRBC-AUTO% 0.2 % (0.0-0.2); PLATELET CLUMPS FLAG 0 (0-99); PLATELET COUNT 310 10^3/uL (150-400); RED BLOOD CELL COUNT 3.99 10^6/uL (4.40-6.38); RED CELL DISTRIBUTION WIDTH 15.1 % (11.5-15.2)
[2017-02-02] MEDS ORDERED: IOPAMIDOL (ISOVUE 370) 100 ML BTL IV ONE (14:32)
[2017-02-02 15:24] LABS: ANION GAP 6 mEq/L (8-16); CALCIUM 8.9 mg/dL (8.5-10.4); CARBON DIOXIDE 24 mEq/l (22-31); CHLORIDE 108 mEq/L (97-110); CREATININE 0.8 mg/dL (0.7-1.3); GLOMERULAR FILTRATION RATE > 60; GLUCOSE 99 mg/dL (70-100); POTASSIUM 5.1 mEq/L (3.5-5.2); SODIUM 138 mEq/L (134-144)
[2017-02-02 15:34] LABS: TROPONIN I < 0.012 ng/mL (0-0.034)
[2017-02-02 16:15] VITALS: BP 137/95; PULSE 85; TEMP 99.5; O2SAT 94
== END 2017-02-02 17:08 | disposition home or self-care (01) ==
LOC: EDUNIT#
DX: R07.89 Other chest pain (principal); M79.81 Nontraumatic hematoma of soft tissue
CPT/HCPCS: 82947-QW; Q9967

== ENCOUNTER 2017-05-19 12:23 | Inpatient (IN) | payer SELFPAY ==
[2017-05-19] MEDS ORDERED: NALOXONE HCL 0.4 MG/ML INJ ONE (12:37)
--- NOTE | 2017-05-19 13:00 | EDPHY ---
H & P Time Seen by Provider: 05/19/17 12:52 HPI/ROS: Chief complaint. AMS HPI. 56-year-old male found on the floor this morning by his at 6:00 a.m.. Last seen normal at 10:00 p.m. last night. EMS was called he was given Narcan intranasally with some improvement of respirations. Blood sugar found to be 111. His thinks that it is likely that he took both Klonopin and oxycodone. Paramedics found a bottle of oxycodone with many pills missing. notes quite a bit of increased stress recently. The patient lost his job and they are forced to sell their house for financial reasons. Otherwise he has not been sick. Patient was admitted to the hospital January 07 for a Klonopin and oxycodone overdose. ROS Constitutional. Weakness and decreased responsiveness Eyes. no problems with vision ENT. no sore throat, no nasal drainage Cardiovascular. no chest pain Respiratory. no shortness of breath, no cough Abdominal. no abdominal pain, no nausea/vomiting, no diarrhea . no problems urinating MS. no calf pain/swelling, no neck/back pain, no joint pain Skin. no rash Lymph. no swollen glands Neuro. 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 Chronic pain with opioid dependency. Polyarteritis nodosa, hypertension, depression, alcoholism, GERD Social History: , daily smoker, no alcohol Smoking Status: Current every day smoker Physical Exam: General Appearance: Arousable only to painful stimuli. Vital signs significant for blood pressure 194/112 Eyes: Pupils are pinpoint. ENT, Mouth: Mucous membranes are moist. Respiratory: There are no retractions, lungs are clear to auscultation. Cardiovascular: Regular rate and rhythm. Gastrointestinal: Abdomen is soft and nontender, no masses, bowel sounds normal. Neurological: Arousable only to painful stimuli Skin: Warm and dry, no rashes. Musculoskeletal: Neck is supple nontender. Extremities symmetrical, full range of motion. Psychiatric: No agitation. Constitutional: Initial Vital Signs O2 Sat (%) 98 05/19/17 12:45 O2 Delivery Mode Non-Rebreather Mask O2 (L/minute) 15 Allergies/Adverse Reactions: cephalexin monohydrate [From Keflex] Allergy (Verified 12/17/16 10:09) Home Medications: Medication Instructions Recorded Gabapentin [Neurontin 300 MG (*)] 300 mg PO QID 05/19/17 Methocarbamol [Robaxin 500 mg (*)] 500 mg PO TID 05/19/17 Metoprolol Tartrate [Lopressor 25 25 mg PO BID 05/19/17 mg (*)] PARoxetine HCL [Paxil] 40 mg PO DAILY 05/19/17 Spironolactone [Aldactone 25 MG 25 mg PO DAILY 05/19/17 (*)] clonAZEPAM [Klonopin] 2 mg PO DAILY 05/19/17 oxyCODONE HCL [OXYCODONE HCL] 10 mg PO Q4H PRN 05/19/17 traZODone [traZODONE 50MG (*)] 50 - 150 mg PO HS 05/19/17 Medical Decision Making - Diagnostics EKG Interpretation: EKG interpreted by me shows normal sinus rhythm with normal interval. There is left axis deviation. QRS is otherwise normal there is no significant ST elevation or depression. No arrhythmia. The rate is 99 Imaging Results: Imaging Impressions Chest X-Ray 05/19/17 13:11 Impression: Nothing acute identified. Head CT 05/19/17 13:11 Impression: 1. Normal CT brain without contrast. 2. Consider MRI of the brain without and with contrast enhancement, if there is continued clinical concern. Head CT reviewed by me and discussed with Dr. Sutherland shows no intracranial injury or bleeding One-view chest x-ray interpreted by me shows maybe slight left pleural effusion with blunting of the left costophrenic angle but otherwise no pneumonia or pneumothorax Procedures: IV normal saline, monitor. Nasal trumpet and mask for oxygen. 100% saturation on room air with end-tidal CO2 22 ED Course/Re-evaluation: Serial evaluations patient remained stable Re-evaluation again at 2:20 p.m.--condition unchanged. Still breathing with supplemental oxygen. Current heart rate is 102 with blood pressure 165/105 and 98% oxygen saturation I reviewed imaging and lab results and EKG findings with the patient's . We discussed need for admission. She expresses understanding and agreement I consulted and discussed case Dr. Esteves, hospitalist who will see the patient in the emergency department Patient is watched closely by serial available examinations for deterioration especially in respiratory status. He remains unconscious and nonverbal. Patient will be admitted to the ICU Differential Diagnosis: Likely poly substance overdose. I considered intracranial bleeding, acute coronary syndrome, electrolyte abnormality Critical Care Time: Critical care time exclusive procedures 40 minutes - Data Points Laboratory Results: Laboratory Results 05/19/17 12:39 05/19/17 12:39 05/19/17 05/19/17 05/19/17 13:35 12:45 12:39 WBC RBC Hgb POC Hgb 14.3 gm/dL gm/dL (13.7-17.5) Hct POC Hct 42 % % (40-51) MCV MCH MCHC RDW Plt Count MPV Neut % (Auto) Lymph % (Auto) [place] % (Auto) Eos % (Auto) Baso % (Auto) Nucleat RBC Rel Count Absolute Neuts (auto) Absolute Lymphs (auto) Absolute Monos (auto) Absolute Eos (auto) Absolute Basos (auto) Absolute Nucleated RBC Immature Gran % Immature Gran # PT INR POC Sodium 143 mEq/L mEq/L (134-144) Sodium 140 mEq/L mEq/L (134-144) POC Potassium 3.8 mEq/L mEq/L (3.3-5.0) Potassium 4.5 mEq/L mEq/L (3.5-5.2) POC Chloride 103 mEq/L mEq/L (97-110) Chloride 101 mEq/L mEq/L (97-110) Carbon Dioxide 27 mEq/l mEq/l (22-31) Anion Gap 12 mEq/L mEq/L (8-16) POC BUN 10 mg/dL mg/dL (7-23) BUN 11 mg/dL mg/dL (7-23) Creatinine 0.9 mg/dL mg/dL (0.7-1.3) POC Creatinine 0.8 mg/dL mg/dL (0.7-1.3) Estimated GFR > 60 Glucose 119 mg/dL H mg/dL (70-100) POC Glucose 111 mg/dL H mg/dL (70-100) Calcium 9.6 mg/dL mg/dL (8.5-10.4) Creatine Kinase 522 IU/L H IU/L (0-224) CK-MB (CK-2) Fraction 4.63 ng/mL H ng/mL (0-3.19) CK-MB (CK-2) % 0.9 % % (0.0-4.0) Creatine Kinase Interp NEGATIVE (NEGATIVE) Troponin I < 0.012 ng/mL ng/mL (0-0.034) Urine Color PALE YELLOW Urine Appearance CLEAR Urine pH 5.0 (5.0-7.5) Ur Specific Tell 1.003 (1.002-1.030) Urine Protein NEGATIVE (NEGATIVE) Urine Ketones NEGATIVE (NEGATIVE) Urine Blood 2+ H (NEGATIVE) Urine Nitrate NEGATIVE (NEGATIVE) Urine Bilirubin NEGATIVE (NEGATIVE) Urine Urobilinogen NEGATIVE EU EU (0.2-1.0) Ur Leukocyte Esterase NEGATIVE (NEGATIVE) Urine RBC NONE SEEN /hpf /hpf (0-3) Urine WBC NONE SEEN /hpf /hpf (0-3) Ur Epithelial Cells NONE SEEN /lpf /lpf (NONE-1+) Urine Glucose NEGATIVE (NEGATIVE) Salicylates < 1.0 mg/dL L mg/dL (2.0-20.0) Urine Opiates Screen NEGATIVE (NEGATIVE) Acetaminophen < 10 mcg/mL L mcg/mL (10.0-30.0) Urine Barbiturates NEGATIVE (NEGATIVE) Ur Phencyclidine Scrn NEGATIVE (NEGATIVE) Ur Amphetamine Screen NEGATIVE (NEGATIVE) U Benzodiazepines Scrn NEGATIVE (NEGATIVE) Urine Cocaine Screen NEGATIVE (NEGATIVE) U Marijuana (THC) Screen NON-NEGATIVE H (NEGATIVE) Ethyl Alcohol < 10 mg/dL mg/dL (0-10) 05/19/17 05/19/17 12:39 12:39 WBC 10.91 10^3/uL H 10^3/uL (3.80-9.50) RBC 5.09 10^6/uL 10^6/uL (4.40-6.38) Hgb 14.9 g/dL g/dL (13.7-17.5) POC Hgb Hct 45.8 % % (40.0-51.0) POC Hct MCV 90.0 fL fL (81.5-99.8) MCH 29.3 pg pg (27.9-34.1) MCHC 32.5 g/dL g/dL (32.4-36.7) RDW 15.3 % H % (11.5-15.2) Plt Count 331 10^3/uL 10^3/uL (150-400) MPV 10.2 fL fL (8.7-11.7) Neut % (Auto) 77.3 % H % (39.3-74.2) Lymph % (Auto) 14.4 % L % (15.0-45.0) [place] % (Auto) 6.5 % % (4.5-13.0) Eos % (Auto) 0.9 % % (0.6-7.6) Baso % (Auto) 0.4 % % (0.3-1.7) Nucleat RBC Rel Count 0.0 % % (0.0-0.2) Absolute Neuts (auto) 8.44 10^3/uL H 10^3/uL (1.70-6.50) Absolute Lymphs (auto) 1.57 10^3/uL 10^3/uL (1.00-3.00) Absolute Monos (auto) 0.71 10^3/uL 10^3/uL (0.30-0.80) Absolute Eos (auto) 0.10 10^3/uL 10^3/uL (0.03-0.40) Absolute Basos (auto) 0.04 10^3/uL 10^3/uL (0.02-0.10) Absolute Nucleated RBC 0.00 10^3/uL 10^3/uL (0-0.01) Immature Gran % 0.5 % % (0.0-1.1) Immature Gran # 0.05 10^3/uL 10^3/uL (0.00-0.10) PT 13.4 SEC SEC (12.0-15.0) INR 1.03 (0.83-1.16) POC Sodium Sodium POC Potassium Potassium POC Chloride Chloride Carbon Dioxide Anion Gap POC BUN BUN Creatinine POC Creatinine Estimated GFR Glucose POC Glucose Calcium Creatine Kinase CK-MB (CK-2) Fraction CK-MB (CK-2) % Creatine Kinase Interp Troponin I Urine Color Urine Appearance Urine pH Ur Specific Tell Urine Protein Urine Ketones Urine Blood Urine Nitrate Urine Bilirubin Urine Urobilinogen Ur Leukocyte Esterase Urine RBC Urine WBC Ur Epithelial Cells Urine Glucose Salicylates Urine Opiates Screen Acetaminophen Urine Barbiturates Ur Phencyclidine Scrn Ur Amphetamine Screen U Benzodiazepines Scrn Urine Cocaine Screen U Marijuana (THC) Screen Ethyl Alcohol Medications Given: Enalaprilat (Vasotec Iv) 1.25 mg IVP Q6HRS PRN PRN Reason: sbp>200 dbp>100 Stop: 11/15/17 15:12 Last Admin: 05/19/17 21:12 Dose: 1.25 mg Gabapentin (Neurontin) 300 mg PO QID [facility] Stop: 11/15/17 20:59 Last Admin: 05/19/17 21:12 Dose: Not Given Potassium Chloride/Dextrose/Sod Cl (D5w 1/2 Ns W/ 20 Kcl/L) 1,000 mls @ 150 mls /hr IV CONT [facility] Stop: 11/15/17 15:14 Last Admin: 05/19/17 15:52 Dose: 1,000 mls Methocarbamol (Robaxin) 500 mg PO TID [facility] Stop: 11/15/17 21:59 Last Admin: 05/19/17 21:12 Dose: Not Given Metoprolol Tartrate (Lopressor) 25 mg PO BID [facility] Stop: 11/15/17 20:59 Last Admin: 05/19/17 21:12 Dose: Not Given Trazodone HCl (Trazodone) 50 - 150 mg PO HS [facility] Stop: 11/15/17 20:59 Last Admin: 05/19/17 21:12 Dose: Not Given Discontinued Medications Sodium Chloride (Ns) 1,000 mls @ 0 mls/hr IV ONCE ONE; Wide Open PRN Reason: Protocol Stop: 05/19/17 13:12 Last Admin: 05/19/17 13:19 Dose: 1,000 mls Point of Care Test Results: 05/19/17 12:45 POC Sodium 143 POC Potassium 3.8 POC Chloride 103 POC BUN 10 POC Creatinine 0.8 POC Glucose 111 H Departure - Departure Disposition: [facility] In[facility] Acute Clinical Impression: Polysubstance abuse Condition: Critical
[2017-05-19] MEDS ORDERED: NS 1,000 ML IV ONE (13:11)
[2017-05-19 13:21] LABS: % IMMATURE GRANULYOCYTES 0.5 % (0.0-1.1); ABSOLUTE IMMATURE GRANULOCYTES 0.05 10^3/uL (0.00-0.10); ADD DIFF? NO; ADD MORPH? NO; ADD SCAN? NO; ATYPICAL LYMPHOCYTE FLAG 0 (0-99); FRAGMENT RBC FLAG 0 (0-99); HEMATOCRIT 45.8 % (40.0-51.0); HEMOGLOBIN 14.9 g/dL (13.7-17.5); LEFT SHIFT FLG 0 (0-99); LIPEMIA HEMOLYSIS FLAG 80 (0-99); MEAN CELL HEMOGLOBIN 29.3 pg (27.9-34.1); MEAN CELL HEMOGLOBIN CONCENTR. 32.5 g/dL (32.4-36.7); MEAN PLATELET VOLUME 10.2 fL (8.7-11.7); PLATELET CLUMPS FLAG 0 (0-99); PLATELET COUNT 331 10^3/uL (150-400); RED BLOOD CELL COUNT 5.09 10^6/uL (4.40-6.38); RED CELL DISTRIBUTION WIDTH 15.3 % (11.5-15.2)
[2017-05-19 13:27] LABS: INR 1.03 (0.83-1.16); PROTIME(PATIENT) 13.4 SEC (12.0-15.0)
[2017-05-19 13:33] LABS: ANION GAP 12 mEq/L (8-16); CALCIUM 9.6 mg/dL (8.5-10.4); CARBON DIOXIDE 27 mEq/l (22-31); CHLORIDE 101 mEq/L (97-110); CREATININE 0.9 mg/dL (0.7-1.3); ETHANOL SERUM < 10 mg/dL (0-10); GLOMERULAR FILTRATION RATE > 60; GLUCOSE 119 mg/dL (70-100); POTASSIUM 4.5 mEq/L (3.5-5.2); SALICYLATE < 1.0 mg/dL (2.0-20.0); SODIUM 140 mEq/L (134-144)
[2017-05-19 13:50] LABS: COLOR PALE YELLOW; LEUKOCYTE ESTERASE,URINE NEGATIVE (NEGATIVE); NITRITE,URINE NEGATIVE (NEGATIVE)
[2017-05-19 13:58] LABS: RBC,URINE NONE SEEN /hpf (0-3); WBC,URINE NONE SEEN /hpf (0-3)
--- NOTE | 2017-05-19 14:10 | CPEKG ---
Heart Rate: 99 RR Interval: 606 P-R Interval: 136 QRSD Interval: 78 QT Interval: 336 QTC Interval: 432 P [place]: 55 QRS [place]: -6 T Wave [place]: 36 EKG Severity - BORDERLINE ECG - EKG Impression: SINUS RHYTHM EKG Impression: PROBABLE LEFT ATRIAL ABNORMALITY Electronically Signed By: Rosa Kingsley 19-May-2017 22:01:15
[2017-05-19 14:19] LABS: CK-MB INTERPRETATION NEGATIVE (NEGATIVE); TROPONIN I < 0.012 ng/mL (0-0.034)
[2017-05-19 14:21] LABS: CREATINE KINASE-MB FRACTION 4.63 ng/mL (0-3.19)
[2017-05-19] MEDS ORDERED: ENALAPRILAT DIHYDRATE 1.25 MG/ML VIAL IVP PRN (15:13)
[2017-05-19] MEDS ORDERED: NALOXONE HCL 2 MG in D5W 500 ML IV SCH (15:15)
--- NOTE | 2017-05-19 15:49 | GHP ---
[f rep st] HISTORY AND PHYSICAL DATE OF ADMISSION: 05/19/2017 CHIEF COMPLAINT: Altered mental status, found unresponsive. HISTORY OF PRESENT ILLNESS: This is a 56-year-old male, last admitted to [facility] , where he presented with an identical presentation of being found on the floor unrespon jackie at home, and subsequently discharged the following day with the diagnosis of inadvertent Klonop in and possibly oxycodone overdose. The patient does have a history of probable polyarteritis nodosa with distal digital necrosis of his toes. His tells me that he has been dealing with chronic pain due to his toe ulcers for some time. This morning, at around 6 o'clock, awoke, finding her on the bathroom floor, jaquan rousable. He lives in [place] with his . Once again, he is on clonazepam and oxycodone, which his thinks he probably overdosed on. He has had no other acute complaints recently. His sta asha that he has not been suicidal. It was thought that his last hospitalization was from an uninten tional overdose, as well. PAST MEDICAL HISTORY: 1. Suspected polyarteritis nodosa with necrosis of his toes. 2. MRSA cellulitis. 3. Hypertension. 4. Depression. 5. Alcohol abuse. 6. Sciatica. 7. GERD. 8. Rhabdomyolysis. HOME MEDICATIONS: Reviewed. Refer to [employer] [employer] for details. ALLERGIES: Cephalexin. SOCIAL HISTORY: He is . He has a history of chronic alcohol abuse, per history. There is n o history of tobacco or illicit drug use. FAMILY HISTORY: Significant for sepsis in his father. His mother of breast cancer. REVIEW OF SYSTEMS: A comprehensive 10-point review of systems was done. However, this was unobtain able due the patient's altered mental status. During the time of my exam, he was virtually unarousa ble. PHYSICAL EXAM: VITAL SIGNS: Blood pressure 165/105, pulse 104, respiratory rate 18, O2 saturation 98% on room air. Temperature afebrile. GENERAL: Ill-appearing, unarousable but does respond to pa inful stimuli. HEAD: Normocephalic, atraumatic. EYES: Pupils are constricted and minimally react rashel. HEAD: Normocephalic, atraumatic. MOUTH: Dry oral mucosa. NECK: Supple. No lymphadenopath y. CARDIOVASCULAR: S1, S2. No JVD. No lower extremity edema. PULMONARY: Lungs are clear. No w heezes, rales, or rhonchi. ABDOMEN: Soft, nontender, nondistended. No guarding or rebound tendern ess. Normoactive bowel sounds. EXTREMITIES: No clubbing or cyanosis. NEURO: Difficult to assess since patient is not following commands. He is oriented x0. SKIN: There is necrosis o f his toes with ulcerations, without significant surrounding erythema or signs of infection. DIAGNOSTICS: WBC is 10.9, hemoglobin 14.9, hematocrit 45.8, platelets 331. Sodium 140, potassium 4 .5, chloride 101, CO2 of 27, BUN 11, creatinine 0.9, glucose 119, creatine kinase 522. UA had 2+ bl ood, no rbc's. Urine tox non-negative for marijuana but otherwise unremarkable with negative acetam inophen and salicylate levels. Head CT was read as normal noncontrast CT of the brain. EKG, which I visualized and personally inte rpreted, sinus rhythm, rate 99 beats per minute, no acute ischemic changes. Chest x-ray, nothing ac [place]. ASSESSMENT/PLAN: This is a 56-year-old male presenting with: 1. Acute encephalopathy, most likely due to Klonopin and oxycodone overdose. Plan: The patient wi ll be admitted to the intensive care unit where we will start him on a Narcan drip, given that his p upils continue to be pinpoint. We will defer giving flumazenil at this time. Per the patient's wif e, he is not suicidal and we will defer placing him on an M1 hold for now, but this should be readdr essed once he is more arousable. 2. Reported history of polyarteritis nodosa, causing necrosis of the toes and vasculitis. Plan: W e will check ESR and CRP, and order wound care consult. 3. Uncontrolled hypertension. Plan: will continue to monitor blood pressure. We will treat systol ic blood pressures of greater than 200 or diastolic greater than 100, with IV enalapril. The patient will be admitted to the hospital under inpatient status. He is high risk. /[id number]/MODL
[2017-05-19] MEDS: D5W 1/2 NS W/ 20 KCl/L 1,000 ML IV SCH ×2 (15:52→22:40)
[2017-05-19 16:32] LABS: BASE EXCESS -0.4 mEq/L (-2.5-2.5); BICARBONATE 26 mEq/L (22-26); MEASURED OXYGEN SATURATION 92 % (92-95); PCO2 50 mmHg (34-38); PO2 68 mmHg (65-75); TCO2 27 mEq/L (23-27)
[2017-05-19 16:33] LABS: END TIDAL CO2 28
[2017-05-19] MEDS: METOPROLOL TARTRATE 25 MG TAB PO SCH (21:12)
[2017-05-19] MEDS: traZODone 50 MG TAB PO SCH (21:12)
[2017-05-19] MEDS: METHOCARBAMOL 500 MG TAB PO SCH (21:12)
[2017-05-19] MEDS: GABAPENTIN 300 MG CAP PO SCH (21:12)
[2017-05-20 05:01] LABS: % IMMATURE GRANULYOCYTES 0.3 % (0.0-1.1); ABSOLUTE IMMATURE GRANULOCYTES 0.03 10^3/uL (0.00-0.10); ADD DIFF? NO; ADD MORPH? NO; ADD SCAN? NO; ATYPICAL LYMPHOCYTE FLAG 0 (0-99); FRAGMENT RBC FLAG 20 (0-99); HEMATOCRIT 38.5 % (40.0-51.0); HEMOGLOBIN 12.6 g/dL (13.7-17.5); LEFT SHIFT FLG 0 (0-99); LIPEMIA HEMOLYSIS FLAG 80 (0-99); MEAN CELL HEMOGLOBIN 28.9 pg (27.9-34.1); MEAN CELL HEMOGLOBIN CONCENTR. 32.7 g/dL (32.4-36.7); MEAN CELL VOLUME 88.3 fL (81.5-99.8); MEAN PLATELET VOLUME 9.8 fL (8.7-11.7); PLATELET CLUMPS FLAG 10 (0-99); PLATELET COUNT 246 10^3/uL (150-400); RED BLOOD CELL COUNT 4.36 10^6/uL (4.40-6.38); RED CELL DISTRIBUTION WIDTH 15.3 % (11.5-15.2)
[2017-05-20 05:14] LABS: ALANINE AMINOTRANSFERASE 24 IU/L (21-72); ALBUMIN 3.3 g/dL (3.5-5.0); ALKALINE PHOSPHATASE 64 IU/L (38-126); ANION GAP 9 mEq/L (8-16); ASPARTATE AMINOTRANSFERASE 63 IU/L (17-59); BILIRUBIN,TOTAL 0.8 mg/dL (0.1-1.4); CALCIUM 8.9 mg/dL (8.5-10.4); CARBON DIOXIDE 25 mEq/l (22-31); CHLORIDE 106 mEq/L (97-110); CREATININE 0.7 mg/dL (0.7-1.3); GLOMERULAR FILTRATION RATE > 60; GLUCOSE 107 mg/dL (70-100); POTASSIUM 4.7 mEq/L (3.5-5.2); SODIUM 140 mEq/L (134-144); TOTAL PROTEIN 5.9 g/dL (6.3-8.2)
[2017-05-20 05:32] LABS: CK-MB INTERPRETATION NEGATIVE (NEGATIVE); SPECIMEN HEMOLYSIS 154
[2017-05-20 05:33] LABS: CREATINE KINASE-MB FRACTION 6.19 ng/mL (0-3.19)
[2017-05-20] MEDS: GABAPENTIN 300 MG CAP PO SCH ×4 (05:56→21:01)
[2017-05-20] MEDS: METHOCARBAMOL 500 MG TAB PO SCH ×3 (09:01→21:02)
[2017-05-20] MEDS: ENOXAPARIN 40 MG/0.4 ML SYR SC SCH (13:00)
[2017-05-20] MEDS: SPIRONOLACTONE 25 MG TAB PO SCH (13:16)
[2017-05-20] MEDS: PARoxetine HCL 20 MG TAB PO SCH (13:16)
[2017-05-20] MEDS: METOPROLOL TARTRATE 25 MG TAB PO SCH ×2 (13:17→21:02)
--- NOTE | 2017-05-20 13:23 | WOCRNPDOC ---
WOCRN Advanced Assessment Note - Skin Integrity Problem, Advanced Assess Bilateral Toe Dressing Type: Open to Air Exudate Amount: None Exudate Characteristic(s): None Linda Wound Tissue: Scaly, Dry, Crusted, Calloused Linda Wound Swelling: None Wound Bed Color: Black (noted on distal aspect of R 4th toe only), Brown, Red, Yellow Wound Bed Constitution: Smooth Tissue, Scab, Dried Exudate Site Odor: None Site Measurement - Head-to-Toe Length X Width X Depth (cm): R great toe: [id number]. R 2nd toe: [id number]. R 4th toe: 0.3cmx0.4cmx0.1cm. L great toe: 2.2cmx2.2cmx0.1cm Skin Integrity Problem Comment: Patient is well-known to wound care, and has been seen during previous hospitalizations for these wounds and others. Presently, he has dry, crusted skin over the distal aspects of his R and L great toes, as well as his R 2nd toe. None of these sites are necrotic, and I did visualize red, non-granular tissue underneath the crusted areas. There is an area of what appears to be stable eschar at the distal aspect of his R 4th toe. He has +2 DP pulses in both feet, and both extremities are warm w/ <3sec cap refill. Recommend thoroughly cleaning the R and L great toes and R 2nd toe and covering w/ wound gel and Allevyn to soften the dry crusted areas. R 4th toe should be left LUZ and monitored ongoing for any changes. Report given to hospital managerELIE Rivers. Wound care will folllow up with patient on Thursday 05/24.
--- NOTE | 2017-05-20 14:03 | HOSPPROG ---
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 Harry eyes episode and current the situation with his primary consumer product advisor Dr. Mcpherson on the phone today. From discussion with Dr. Mcpherson and the patient's do believe that his mentation is probably pretty much back at his baseline at this time. At this point will want to try and start back on his medications and watch to see how response to make sure that his current prescribed doses are appropriate for him before returning get him back home. He will need to be watched in the hospital in inpatient setting. As far as his toes they seem to be doing as well as previous and are continuing to improve over time as assessed by the nurse wound care nurse who knows him. 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 As I spent time with him he has change in affect from what I would expect an actually appears somewhat inebriated but is the best I can tell this is probably his baseline and I did confirm this with his consumer product advisor Dr. Mcpherson today. skin warm dry color ok resps not labored lungs clear BSs heart regular abd soft nondistended nontender, bowel sounds present limbs his toes have chronic open wounds with no current signs of infection or necrosis or fluid collections. Otherwise limbs are warm, no edema iv site ok Objective: Vital Signs Temp Pulse Resp BP Pulse Ox 36.9 C 91 14 144/76 H 95 05/20/17 08:00 05/20/17 13:17 05/20/17 12:00 05/20/17 13:17 05/20/17 12:00 Laboratory Results 05/20/17 04:45 05/20/17 04:45 05/19/17 05/20/17 05/21/17 06:59 06:59 06:59 Intake Total 3258 Output Total 1850 900 Balance 1408 -900 PT 13.4 SEC (12.0-15.0) 05/19/17 12:39 INR 1.03 (0.83-1.16) 05/19/17 12:39 - Time Spent With Patient Time Spent with Patient: greater than 35 minutes Time Spent with Patient: Greater than 35 minutes spent on this patients care, greater than 50% of time spent counseling, educating, and coordinating care regarding the above mentioned plan. ICD10 Worksheet Patient Problems: Problems Problem Status Onset Polysubstance abuse Acute Altered mental status Acute Hyperkalemia Acute Ischemic toe Acute Polysubstance abuse Acute Renal failure Acute Skin lesion Acute Tylenol overdose Acute
[2017-05-20] MEDS: clonazePAM 1 MG TAB PO SCH (15:15)
--- NOTE | 2017-05-20 15:53 | PDINTPN ---
Teacher Visually Impaired Progress Note Assessment/Plan: Assessment: Obtundation: Likely due to polysubstance overdose, with narcotics, benzodiazepine, gabapentin, and Robaxin all potentially contributing. 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 He has improved and was apparently near baseline now. Plan: Continue ICU observation. Resume medications at prescribed doses and observe for significant CAR RESTORER depression. Can transfer out of ICU. 05/20/17 15:55 Subjective: More alert, denies pain, appetite improving, little recollection of events prior to losing consciousness, says he took 4 pills, all prescribed, no other medications/drugs. Objective: Vital Signs Temp Pulse Resp BP Pulse Ox 36.9 C 77 18 144/96 H 93 05/20/17 08:00 05/20/17 14:00 05/20/17 14:00 05/20/17 14:00 05/20/17 14:00 Laboratory Results 05/20/17 04:45 05/20/17 04:45 05/19/17 05/20/17 05/21/17 05:59 05:59 05:59 Intake Total 2908 850 Output Total 1850 900 Balance 1058 -50 PT 13.4 SEC (12.0-15.0) 05/19/17 12:39 INR 1.03 (0.83-1.16) 05/19/17 12:39 Physical Exam - Physical Exam General Appearance: alert, no apparent distress EENT: normal ENT inspection Neck: normal inspection Respiratory: lungs clear, normal breath sounds Cardiac/Chest: regular rate, rhythm, No edema Abdomen: normal bowel sounds, non-tender, soft Skin: normal color, warm/dry Extremities: other (bilateral toe ulcers: healing) Neuro/Psych: alert, other (speech mildly dysarthric/slurred.), No normal mood/ affect, No motor weakness ICD10 Worksheet Patient Problems: Problems Problem Status Onset Polysubstance abuse Acute Altered mental status Acute Hyperkalemia Acute Ischemic toe Acute Polysubstance abuse Acute Renal failure Acute Skin lesion Acute Tylenol overdose Acute
--- NOTE | 2017-05-20 16:07 | GCON ---
[f rep st] CONSULTATION PULMONARY/CRITICAL CARE CONSULTATION DATE OF CONSULTATION: 05/19/2017 REFERRING PHYSICIAN: Jovi Esteves DO REASON FOR REFERRAL: Evaluation and management of unresponsive, polysubstance overdose. HISTORY: The patient is a 56-year-old male with a history of probable polyarteritis nodosa with dis hao digital necrosis of his toes, which has caused severe pain, requiring narcotics. He was admitte d to the hospital 3 months ago with being found unresponsive, and this was felt to be due to an inad vertent Klonopin and oxycodone overdose. This morning, around 6 in the morning, the patient's awoke and found her on the bathroom floor unarousable. He was given intranasal Narcan and h ad a partial response but has returned to being obtunded. PAST MEDICAL HISTORY: 1. Suspect polyarteritis nodosa with digital distal toe necrosis. 2. History of MRSA cellulitis. 3. Hypertension. 4. Depression. 5. Alcohol abuse. 6. GERD. 7. Rhabdomyolysis. MEDICATIONS: At the time of admission include: 1. Trazodone 50-150 mg q.h.s. 2. Aldactone. 3. Paxil. 4. Robaxin. 5. Klonopin 2 mg daily. 6. Lopressor. 7. Gabapentin 300 mg 4 times daily. 8. Oxycodone 10 mg every 4 hours p.r.n. ALLERGIES: Keflex. SOCIAL HISTORY: The patient is . He has a history of chronic alcohol abuse. He does not sm linden. FAMILY HISTORY: Unremarkable. REVIEW OF SYSTEMS: A 10-point review of systems is unobtainable because the patient is obtunded. PHYSICAL EXAMINATION: GENERAL: The patient is obtunded, just weak, withdrawal to noxious stimuli. He is not following commands. VITAL SIGNS: Blood pressure is 164/104, with a heart rate of 124. He is afebrile. Oxygen saturations are 99% on 15 L. HEENT: Normocephalic and atraumatic. No icte nidhi. NECK: No JVD. Trachea is midline. CHEST: Clear to auscultation. CARDIAC: Regular tachyca rdia, without murmur. ABDOMEN: Soft, nontender. Bowel sounds are present. EXTREMITIES: No clubb ing, cyanosis, or edema. NEURO: The patient is minimally responsive to noxious stimuli in a nonpur poseful fashion. His pupils are small and sluggishly reactive. LABORATORY DATA: A chemistry group was normal. Glucose is 119. CPK is 522, with a negative MB fra ction. White blood count is 10.9, with a hemoglobin of 14.9. An arterial blood gas shows a pH of 7 .33, with a pO2 of 68, a CO2 of 50, and a bicarbonate of 27 on supplemental oxygen. A urine tox scr een is non-negative for marijuana. Alcohol level is less than 10. A chest x-ray shows nothing acut e. Images reviewed. A CT scan of the head is unremarkable. ASSESSMENT: 1. Encephalopathy. The patient is obtunded. Clinically, this is most likely due to benzodiazepine s and oxycodone, with a response to Narcan in the field. His negative urine screen is a bit unusual . He is currently protecting his airway enough that he does not require repeat Narcan dosing or int ubation. 2. Tachycardia. This could be due to dehydration. He is receiving IV fluids. 3. Hypertension. RECOMMENDATIONS: Continue ICU monitoring. The patient will be given Narcan if he develops further difficulty in maintaining his airway. His heart rate and blood pressure will be monitored, and beta blockers will be given IV if necessary, then resumed orally once he is able to take p.o. /[id number]/MODL
[2017-05-20] MEDS: oxyCODONE IR 5 MG TAB PO PRN ×2 (16:27→21:02)
[2017-05-20] MEDS: traZODone 50 MG TAB PO SCH (21:02)
[2017-05-21] MEDS: oxyCODONE IR 5 MG TAB PO PRN ×2 (02:13→07:49)
[2017-05-21 03:12] VITALS: PULSE 61
[2017-05-21] MEDS: GABAPENTIN 300 MG CAP PO SCH ×2 (05:44→12:35)
[2017-05-21] MEDS: clonazePAM 1 MG TAB PO SCH (07:51)
[2017-05-21] MEDS: SPIRONOLACTONE 25 MG TAB PO SCH (07:52)
[2017-05-21] MEDS: PARoxetine HCL 20 MG TAB PO SCH (07:52)
[2017-05-21] MEDS: METHOCARBAMOL 500 MG TAB PO SCH (07:53)
[2017-05-21] MEDS: ENOXAPARIN 40 MG/0.4 ML SYR SC SCH (07:54)
[2017-05-21 07:58] VITALS: BP 125/81; RESP 16; TEMP 97.6; O2SAT 96
[2017-05-21] MEDS: METOPROLOL TARTRATE 25 MG TAB PO SCH (07:59)
--- NOTE | 2017-05-21 10:35 | PDDCSUM ---
Discharge Summary Discharge Summary: DISCHARGE DIAGNOSES: -ACUTE ENCEPHALOPATHY -OVERDOSE OF PRESCRIBED BENZODIAZAPINE AND NARCOTIC, NO INTENTION FOR SELF HARM -CHRONIC PAIN SYNDROME -CHRONIC ARTERITIS WITH ISCHEMIC INJURY TO TOES -CHRONIC OPEN ULCERS OF TOES, UNDER CARE OF WOUND CARE NURSES AND WOUNDS ARE IMPROVED AT TIME OF THIS ADMISSION -FINANCIAL DISTRESS DUE TO MEDICAL ILLNESS HOSPITAL COURSE SUMMARY:The patient takes chronic low dose prescribed narcotic and benzodiazepine, along with gabapentin and antidepressant, for chronic pain related to ateritis of toes with chronic wounds. At this time he comes in encephalopathic from taking extra doses of both klonopin and oxycodone due to exacerbation of his pain and nausea symptoms. PENDING TEST RESULTS: none MEDICATION CHANGES: none FOLLOW-UP PLAN: The patient is discharged to home today and will follow up with Dr Zamora this coming week. He has verbally contracted with me and his to only take his oxycodone and klonopin as prescribed and his will keep them locked and dispense them to him. Greater than 35 minutes bedside and care coordination time today
== END 2017-05-21 12:41 | disposition home or self-care (01) | DRG 92 ==
LOC: EDUNIT# → F2N 15:30 → F3E 05-21 02:54
PROVIDERS: ADMIT Family Medicine; ATTEND Family Medicine
DX: G92 Toxic encephalopathy (principal); M30.0 Polyarteritis nodosa; F11.20 Opioid dependence, uncomplicated; T42.4X1A Poisoning by benzodiazepines, accidental (unintentional), initial encounter; T40.2X1A Poisoning by other opioids, accidental (unintentional), initial encounter; G89.4 Chronic pain syndrome; I10 Essential (primary) hypertension
CPT/HCPCS: 80305; 82947-QW; 92523-GN; 92610-GN; 97161-GP; G0480; J1650; J2310